=== PATIENT | female | born 1950 | race Caucasian/White ===

== ENCOUNTER 2020-10-29 08:24 | Outpatient (CLI) | payer OTHER, SELFPAY ==
[2020-10-30 10:39] LABS: Basophils Absolute Auto 0.1 K/mm3 (0.0-0.1); Basophils Percent Auto 0.9 % (0.2-1.2); Eosinophils Absolute Auto 0.3 K/mm3 (0-0.3); Eosinophils Percent Auto 3.8 % (0-4.4); Hematocrit 43.1 % (37.0-47.0); Hemoglobin 13.6 g/dL (12.0-15.0); Immature Granulocyte Absolute 0.02 K/mm3 (0.00-0.031); Immature Granulocyte Percent A 0.3 % (0-0.5); Lymphocytes Percent Auto 34.2 % (18.3-44.2); Mean Corpuscular HGB Conc 31.6 g/dl (32-36); Mean Corpuscular Hemoglobin 29.6 pg (26-34); Mean Corpuscular Volume 93.9 fl (80-100); Mean Platelet Volume 10.9 fl (7.4-10.4); Monocytes Absolute Auto 0.6 K/mm3 (0.1-0.6); Monocytes Percent Auto 7.5 % (2.6-8.5); Neutrophils Absolute Auto 4.1 K/mm3 (1.3-6.7); Neutrophils Percent Auto 53.3 % (45.5-73.1); Platelet Count Result 302 k/mm3 (150-375); Red Blood Count 4.59 M/mm3 (4.2-5.4); Red Cell Distribution Width 13.6 % (11.5-14.5); White Blood Count 7.6 K/mm3 (4.5-10.0)
[2020-10-30 10:45] LABS: Add Urine Microscopic? NO; Appearance Urine Clear (Clear); Bacteria Urine Trace /hpf; Bilirubin Urine Negative (Negative); Blood Urine Negative (Negative); Color Urine Yellow (Yellow); Glucose Urine UA Negative (Negative); Ketones Urine Negative (Negative); Leukocyte Esterase Ur Negative LEU/UL (Negative); Mucus Urine Rare /lpf; Nitrate Urine Negative (Negative); Protein Urine Negative (Negative); RBC Urine 0-2 /hpf (0-2); Specific Grav Ur 1.015 (1.001-1.035); Squamous Epithelial Cell Urine Moderate /hpf (Few); Urobilinogen Urine Negative mg/dL (<2.0)
[2020-10-30 10:46] LABS: Alanine Aminotransferase 22 U/L (4-35); Albumin Level 3.9 g/dL (3.5-5.1); Alkaline Phosphatase 53 U/L (38-126); Anion Gap 5 mmol/L (8-16); Aspartate Amino Transferase 23 U/L (14-36); Bilirubin,Total 0.4 mg/dL (0.2-1.3); Blood Urea Nitrogen 16 mg/dL (7-17); Carbon Dioxide 32 mmol/L (22-30); Chloride 107 mmol/L (98-107); Cholesterol 211 mg/dL (0-200); Estimated Glomerular Filt Rate > 60; Glucose 120 mg/dL (65-105); HDL Direct 54 mg/dL; Potassium 3.9 mmol/L (3.4-5.0); Sodium 144 mmol/L (137-145); Triglycerides 135 mg/dL (<150)
[2020-10-30 10:57] LABS: LDL Cholesterol Direct 141 mg/dL
[2020-10-30 11:05] LABS: Vitamin D 25 Hydroxy < 12.8 ng/mL
[2020-10-30 11:43] LABS: IFOB Positive Control Positive; Immunochemical Fecal Occult Bl Negative (N)
[2020-10-30 11:52] LABS: Folic Acid 12.9 ng/mL (2.76->20)
== END 2020-10-29 08:25 | disposition home or self-care (01) ==
PROVIDERS: PCP Family Medicine; Visit Provider Family Medicine
DX: D48.9 Neoplasm of uncertain behavior, unspecified (principal); E04.9 Nontoxic goiter, unspecified; E66.9 Obesity, unspecified; Z13.9 Encounter for screening, unspecified; Z78.0 Asymptomatic menopausal state; Z79.899 Other long term (current) drug therapy; Z82.62 Family history of osteoporosis
CPT/HCPCS: 36415; 80053; 80061; 81003; 82274; 82306; 82607; 82746; 84443; 85025

== ENCOUNTER 2021-11-18 11:04 | Outpatient (CLI) | payer OTHER, SELFPAY ==
[2021-11-18 19:09] LABS: Hematocrit 39.8 % (37.0-47.0); Hemoglobin 12.9 g/dL (12.0-15.0); Mean Corpuscular HGB Conc 32.4 g/dl (32-36); Mean Corpuscular Hemoglobin 29.7 pg (26-34); Mean Corpuscular Volume 91.7 fl (80-100); Mean Platelet Volume 10.6 fl (7.4-10.4); Platelet Count Result 281 k/mm3 (150-375); Red Blood Count 4.34 M/mm3 (4.2-5.4); Red Cell Distribution Width 13.4 % (11.5-14.5); White Blood Count 7.8 K/mm3 (4.5-10.0)
[2021-11-18 19:21] LABS: Alanine Aminotransferase 20 U/L (4-35); Alkaline Phosphatase 57 U/L (38-126); Anion Gap 5 mmol/L (8-16); Aspartate Amino Transferase 22 U/L (14-36); Bilirubin,Total 0.5 mg/dL (0.2-1.3); Blood Urea Nitrogen 12 mg/dL (7-17); Calcium 8.6 mg/dL (8.4-10.2); Carbon Dioxide 32 mmol/L (22-30); Chloride 106 mmol/L (98-107); Cholesterol 218 mg/dL (0-200); Estimated Glomerular Filt Rate 55; Glucose 126 mg/dL (65-110); HDL Direct 55 mg/dL; Sodium 143 mmol/L (137-145); Triglycerides 91 mg/dL (<150)
[2021-11-18 19:29] LABS: Hemoglobin A1C 6.2 % (<5.7)
[2021-11-18 19:35] LABS: LDL Cholesterol Direct 140 mg/dL
[2021-11-18 20:56] LABS: Vitamin D 25 Hydroxy 20.6 ng/mL
[2021-11-18 21:46] LABS: Folic Acid 7.5 ng/mL (2.76->20)
== END 2021-11-18 11:05 | disposition home or self-care (01) ==
PROVIDERS: PCP Family Medicine; Visit Provider Family Medicine
DX: E66.9 Obesity, unspecified (principal); Z78.0 Asymptomatic menopausal state; E04.9 Nontoxic goiter, unspecified; E55.9 Vitamin D deficiency, unspecified; E53.8 Deficiency of other specified B group vitamins; R79.89 Other specified abnormal findings of blood chemistry
CPT/HCPCS: 36415; 80053; 80061; 82306; 82607; 82746; 83036; 84443; 85027

== ENCOUNTER 2021-11-28 10:36 | Outpatient (CLI) | payer OTHER, SELFPAY ==
--- NOTE | ~2021-11-28 | US_ITS ---
EXAMINATION: US thyroid EXAM DATE: 11/28/2021 11:04 INDICATION: E04.9 - Nontoxic goiter, unspecified TECHNIQUE: Multiple grayscale and Doppler images of the thyroid were obtained (by a technologist who performed the scan) and subsequently reviewed. Individual nodules and recommendations may be reporte d in accordance with TI-RADS system as designated by the 2017 ACR White Paper TI-RADS committee. The re is no prior study for comparison. FINDINGS: Right thyroid lobe measures 4.8 x 1.9 x 1.3 cm, the left measuring 3.8 x 1.4 x 1.1 cm. Right thyroid lobe is mildly enlarged. Mildly diffusely heterogeneous thyroid echogenicity. No focal nodule identif ied. IMPRESSION: Mildly enlarged right thyroid lobe. Reviewed, dictated and finalized at location A. RIBUTION COORDINATOR
== END 2021-11-28 10:37 | disposition home or self-care (01) ==
LOC: ANHIMG 10:38
PROVIDERS: PCP Family Medicine; Visit Provider Family Medicine
DX: E04.9 Nontoxic goiter, unspecified (principal)
CPT/HCPCS: 76536

== ENCOUNTER → 2022-02-10 12:21 | Outpatient (CLI) | payer OTHER, SELFPAY ==
--- NOTE | ~2022-02-10 | DEXA_ITS ---
Bone Density Report Name: ZOE BROOKS Age: 71 Sex: Female Ethnicity: White Date of : 1950 Indication: postmenopausal; screening for osteoporosis; parental hip fracture; Referring Provider: WATSON GREER Study: Bone densitometry was performed. Exam Date: February 10, 2022 Accession number: [id number] Bone Density: Region BMD T-score Z-score Classification Total Forearm (Left) 0.539 -0.5 1.6 1/3 Forearm (Left) 0.678 -0.1 2.0 UD Forearm (Left) 0.380 -0.6 0.9 World Health Organization criteria for BMD impression classify patients as: Normal (T-score at or above -1.0), Osteopenia (T-score between -1.0 and -2.5), or Osteoporosis (T-score at or below -2.5). Clinical Information Provided by Patient: Parent has had a hip fracture Patient maximum height was 63.6 Menopause Age: 57 No regular weight bearing exercise Drinks caffeinated beverages Onset of menses at age 14 Number of children 3 Impression: The patient has normal bone mass. The patient has risk factors, including: parental hip fracture. Discussion: BONE DENSITY IS ABOVE THE MINIMUM DESIRABLE LEVEL AT ALL SKELETAL SITES TESTED. This patient?s bone mineral density is above the minimum desirable level (T-score -1.0 or better) at all sites measured. The patient should follow a healthful lifestyle (good nutrition with adequate calcium and vitamin D, and appropriate weight-bearing exercise). Follow-Up: Consider repeating this study in 5 years or sooner if there is some new clinical indication. Reported by: ISABELA on 02/10/2022 2:16:00 PM. Reviewed, dictated and finalized at location AMiller YIP
--- NOTE | ~2022-02-10 | DEXA_ITS ---
Bone Density Report Name: ZOE BROOKS Age: 71 Sex: Female Ethnicity: White Date of : 1950 Indication: postmenopausal; screening for osteoporosis; parental hip fracture; Referring Provider: WATSON GREER Study: Bone densitometry was performed. Exam Date: February 10, 2022 Accession number: [id number] Bone Density: Region BMD T-score Z-score Classification AP Spine (L1-L4) 1.109 0.6 2.6 Normal Femoral Neck (Left) 0.645 -1.8 -0.1 Osteopenia Total Hip (Left) 0.922 -0.2 1.3 Normal Femoral Neck (Right) 0.702 -1.3 0.4 Osteopenia Total Hip (Right) 0.920 -0.2 1.3 Normal Total Hip Mean 0.921 -0.2 1.3 Normal World Health Organization criteria for BMD impression classify patients as: Normal (T-score at or above -1.0), Osteopenia (T-score between -1.0 and -2.5), or Osteoporosis (T-score at or below -2.5). 10-year Fracture Risk(1): Major Osteoporotic Fracture 16% Hip Fracture 2.9% Reported Risk Factors: [place] (), Neck BMD=0.645, BMI=38.1, parental fracture (1) FRAX(R) Version 3.08. Fracture probability calculated for an untreated patient. Fracture probability may be lower if the patient has received treatment. Clinical Information Provided by Patient: Parent has had a hip fracture Patient maximum height was 63.6 Menopause Age: 57 No regular weight bearing exercise Drinks caffeinated beverages Onset of menses at age 14 Number of children 3 Impression: The patient has low bone mass, based on the Left Femoral Neck T-score. The patient has an estimated ten-year risk of hip fracture of 2.9% and an estimated ten-year risk of major fracture of 16%, based on the WHO FRAX algorithm. The patient has risk factors, including: parental hip fracture. Discussion: BONE DENSITY IS LOW AT ONE OR MORE SKELETAL SITES. This patient's lowest T-score is low at one or more skeletal sites. It meets the World Health Organization's (WHO) criteria for ?low bone mass? (T-score between -1.0 and -2.5). The patient's 10-year risk of fracture as calculated by FRAX is less than the threshold where pharmacological therapy is recommended by the National Osteoporosis Foundation (NOF). However, all treatment decisions require clinical judgment and consideration of individual patient factors, including patient preferences, comorbidities, previous drug use, risk factors not captured in the FRAX model (e.g., frailty, falls, vitamin D deficiency, increased bone turnover, interval significant decline in bone density) and possible under or overestimation of fracture risk by FRAX. The patient should follow a healthful lifestyle (good nutrition with adequate calcium and vitamin D, and appropriate weight-bearing exercise). Follow-Up: Consider repeating this study in 2 to 3 years to reassess this patient's status, or sooner if ther
--- NOTE | ~2022-02-10 | MM_ITS ---
EXAMINATION: MM screening michelle BI w trey HISTORY: Screening mammogram TECHNIQUE: Craniocaudal and mediolateral oblique 3-D tomosynthesis images were obtained and synthetic 2-D images were generated. CAD analysis was submitted and interpreted. COMPARISON: No prior mammogram is available for comparison at this institution. BREAST PARENCHYMAL COMPOSITION: The breasts are almost entirely fatty. FINDINGS: RIGHT BREAST: There is a long linear array of microcalcifications in the inner mid left breast, high ly suspicious for ductal carcinoma in situ or ductal carcinoma. Diagnostic mammogram with magnificat ion views is recommended. LEFT BREAST: There is no evidence of suspicious mass, calcification, or architectural distortion to s uggest malignancy in either breast. There has been no suspicious interval change. IMPRESSION: 1. Suspicious long linear array of microcalcifications in the inner mid left breast 2. Diagnostic right mammogram is recommended. BI-RADS Category 0: Incomplete: Needs additional imaging evaluation. Reviewed, dictated and finalized at location A. IMPRESSION: 1. Suspicious long linear array of microcalcifications in the inner mid left br east 2. Diagnostic right mammogram is recommended. BI-RADS Category 0: Incomplete: Needs additional imaging evaluation.
== END ==
PROVIDERS: PCP Family Medicine; Visit Provider Family Medicine
DX: Z12.31 Encounter for screening mammogram for malignant neoplasm of breast (principal); Z78.0 Asymptomatic menopausal state; Z82.62 Family history of osteoporosis; R92.8 Other abnormal and inconclusive findings on diagnostic imaging of breast; M85.852 Other specified disorders of bone density and structure, left thigh; M85.851 Other specified disorders of bone density and structure, right thigh
CPT/HCPCS: 77063; 77067; 77080; 77081

== ENCOUNTER → 2022-05-20 09:22 | Outpatient (CLI) | payer OTHER, SELFPAY ==
--- NOTE | ~2022-05-20 | MM_ITS ---
EXAMINATION: MM diagnostic michelle RT w trey HISTORY: Indeterminate right breast calcifications on screening mammogram TECHNIQUE: Images of the right breast were performed. CAD analysis was submitted and interpreted. COMPARISON: 02/10/2022 FINDINGS: There are fine pleomorphic calcifications in a linear distribution in the middle and forest worker ior third of the slightly outer breast at the 3:00 location spanning an anterior to posterior distanc e of approximately 9 cm. No associated mass is identified. IMPRESSION: 1. Suspicious right breast calcifications. 2. Stereotactic biopsy is recommended. BI-RADS category 4, suspicious findings. Reviewed, dictated and finalized at location A.
== END ==
PROVIDERS: PCP Family Medicine; Visit Provider Family Medicine
DX: R92.8 Other abnormal and inconclusive findings on diagnostic imaging of breast (principal)
CPT/HCPCS: 77061; 77065; G0279

== ENCOUNTER 2022-08-18 11:58 | Emergency (ER) | payer OTHER, SELFPAY ==
--- NOTE | ~2022-08-18 | XR_ITS ---
EXAMINATION: XR chest 2V 08/18/2022 12:59 INDICATION: Low oxygen saturations. Dyspnea. He aches. PROCEDURE: 2 view chest COMPARISON: No prior studies for comparison. FINDINGS: The lungs are clear. The cardiomediastinal silhouette is within normal limits. There are no pleural effusions. There is no pneumothorax suspected. IMPRESSION: 1: NO ACUTE CARDIOPULMONARY DISEASE. Reviewed, dictated and finalized at location A. LER TRUCK DRIVER
[2022-08-18 12:04] VITALS: BP 153/61; PULSE 72; RESP 20; TEMP 37.3; O2SAT 94
--- NOTE | 2022-08-18 12:41 | ED.URI ---
HPI - URI/Sore Throat General Chief Complaint: Upper Respiratory Infection Stated Complaint: cold flu symptoms Time Seen by Provider: 08/18/22 12:41 Source: patient, RN notes reviewed and old records reviewed Mode of arrival: ambulatory Limitations: no limitations History of Present Illness HPI Narrative: 71-year-old female presents to the [facility] with complaints of flu-like symptoms since last night. Took Tylenol and NyQuil last night. Nothing today. Reports a fever of 100.1. Reports cough, chest congestion and headache. Related Data Allergies Allergy/AdvReac Type Severity Reaction Status Date / Time No Known Allergies Allergy Unverified 12/11/21 11:08 Review of Systems Review of Systems: All systems reviewed & are unremarkable except as noted in HPI and below Constitutional: Constitutional: Reports as per HPI, Denies body ache(s), Denies chills, Reports fever(s) and Reports headache(s) Eyes: Eyes: Reports no additional eye complaints ENT: Reports system reviewed and no additional complaints, except as documented and Denies headache(s) Cardiovascular: Cardiovascular: Reports no additional cardiovascular complaints, Denies chest pain and Denies dyspnea Respiratory: Respiratory: Reports as per HPI, Reports chest congestion, Reports cough, Denies dyspnea and Denies wheezing Gastrointestinal: Gastrointestinal: Reports no additional gastrointestinal complaints and Denies abdominal pain Musculoskeletal: Musculoskeletal: Reports no additional musculoskeletal complaints Integumentary/Breasts: Skin/Breast: Reports system reviewed and no additional complaints, except as docu Neurologic: Reports system reviewed and no additional complaints, except as documented and Denies headache(s) Psychiatric: Psychiatric: Reports no additional psychiatric complaints Allergic/Immunologic: Allergic/Immunologic: Reports no additional allergic/immunologic complaints [facility] Past Medical History Medical History (Updated 08/19/22 @ 11:35 by Farnaz Mcmahon APRN) Obesity Prediabetes Surgical History Surgical History History of cholecystectomy Family History Family History Mother Hypertension Heart problem Sibling Cancer Heart problem Thyroid disorder Social History Social History Smoking status: Never smoker Alcohol intake: never Substance use: never Comments At the time of my signature, I reviewed and agree with the nursing past medical, surgical, social, and family history. There is no relevant family history pertinent to the patient complaint. Exam Const: General: cooperative, comfortable, no acute distress, well developed, alert, ill appearing (Mildly acute on chronic) acutely and chronically and well nourished Nutritional Appearance: well nourished and obese Orientation/consciousness: patient oriented x3 Limitations: no limitations HENMT: Head: normal to inspection Ears: external ears normal Face/Nose/Sinus: Normal external nose present, Normal nares present, Normal nasal mucous membranes and turbinates present and normal facial exam Face and sinus: normal facial exam Mouth: Yes Normal oral and palatal mucosa present, Yes lip normal and Yes moist mucous membranes abnormal Eyes: General: appearance normal, both eyes and all related structures Alignment and Position: alignment normal Pupils: Equal, round and reactive pupils present Neck: Neck: normal visual inspection, full ROM, no lymphadenopathy and no meningeal signs Chest: Chest palpation & inspection: normal inspection of the chest Resp: Effort & Inspection: normal respiratory effort and no use of accessory muscles Auscultation: no crackles, no rales, no rhonchi, no wheezes and diminished lung sounds bilateral throughout Cardio: Rate: regular rate Rhythm: regular rhythm Back/Spin
== END 2022-08-18 13:30 | disposition home or self-care (01) ==
PROVIDERS: Emergency Provider Nurse Practitioner; PCP Family Medicine
DX: B34.9 Viral infection, unspecified (principal)
CPT/HCPCS: 71046; 99213; G0463

== ENCOUNTER 2022-09-17 11:00 | Outpatient (CLI) | payer OTHER, SELFPAY ==
[2022-09-17 18:38] LABS: Hemoglobin A1C 6.2 % (<5.7)
[2022-09-17 18:42] LABS: Alanine Aminotransferase 17 U/L (6-35); Albumin Level 3.8 g/dL (3.5-5.1); Alkaline Phosphatase 65 U/L (38-126); Anion Gap 6 mmol/L (8-16); Aspartate Amino Transferase 54 U/L (14-36); Bilirubin,Total 0.5 mg/dL (0.2-1.3); Blood Urea Nitrogen 19 mg/dL (7-17); Calcium 8.7 mg/dL (8.4-10.2); Carbon Dioxide 32 mmol/L (22-30); Chloride 103 mmol/L (98-107); Estimated Glomerular Filt Rate 49; Glucose 103 mg/dL (65-110); Potassium 3.7 mmol/L (3.4-5.0); Sodium 141 mmol/L (137-145)
[2022-09-17 19:20] LABS: Vitamin D 25 Hydroxy 16.8 ng/mL
[2022-09-17 19:38] LABS: Hematocrit 37.2 % (37.0-47.0); Hemoglobin 11.4 g/dL (12.0-15.0); Mean Corpuscular HGB Conc 30.6 g/dl (32-36); Mean Corpuscular Hemoglobin 28.9 pg (26-34); Mean Corpuscular Volume 94.4 fl (80-100); Mean Platelet Volume 10.9 fl (7.4-10.4); Platelet Count Result 332 k/mm3 (150-375); Red Blood Count 3.94 M/mm3 (4.2-5.4); Red Cell Distribution Width 13.8 % (11.5-14.5); White Blood Count 10.1 K/mm3 (4.5-10.0)
== END 2022-09-17 11:01 | disposition home or self-care (01) ==
PROVIDERS: PCP Family Medicine; Visit Provider Family Medicine
DX: E66.9 Obesity, unspecified (principal); I16.0 Hypertensive urgency; R73.03 Prediabetes; Z79.899 Other long term (current) drug therapy
CPT/HCPCS: 36415; 80053; 82306; 83036; 85027

== ENCOUNTER 2023-06-01 12:15 | Outpatient (CLI) | payer OTHER, SELFPAY ==
[2023-06-01 19:51] LABS: Vitamin D 25 Hydroxy 82.6 ng/mL
[2023-06-01 19:59] LABS: Alanine Aminotransferase 25 U/L (6-35); Albumin Level 4.4 g/dL (3.5-5.1); Alkaline Phosphatase 63 U/L (38-126); Anion Gap 7 mmol/L (8-16); Aspartate Amino Transferase 56 U/L (14-36); Bilirubin,Total 0.5 mg/dL (0.2-1.3); Blood Urea Nitrogen 18 mg/dL (7-17); Calcium 9.5 mg/dL (8.4-10.2); Carbon Dioxide 32 mmol/L (22-30); Chloride 102 mmol/L (98-107); Cholesterol 251 mg/dL (0-200); Estimated Glomerular Filt Rate 44; Glucose 106 mg/dL (65-110); HDL Direct 45 mg/dL; Potassium 4.1 mmol/L (3.4-5.0); Sodium 141 mmol/L (137-145); Triglycerides 179 mg/dL (<150)
[2023-06-01 20:10] LABS: LDL Cholesterol Direct 144 mg/dL
[2023-06-01 20:36] LABS: Hematocrit 42.2 % (37.0-47.0); Hemoglobin 12.9 g/dL (12.0-15.0); Mean Corpuscular HGB Conc 30.6 g/dl (32-36); Mean Corpuscular Hemoglobin 28.2 pg (26-34); Mean Corpuscular Volume 92.3 fl (80-100); Mean Platelet Volume 10.7 fl (7.4-10.4); Platelet Count Result 296 k/mm3 (150-375); Red Blood Count 4.57 M/mm3 (4.2-5.4); Red Cell Distribution Width 13.1 % (11.5-14.5); White Blood Count 7.9 K/mm3 (4.5-10.0)
[2023-06-01 21:13] LABS: Hemoglobin A1C 6.2 % (<5.7)
== END 2023-06-01 12:16 | disposition home or self-care (01) ==
PROVIDERS: PCP Family Medicine; Visit Provider Family Medicine
DX: E53.8 Deficiency of other specified B group vitamins (principal); R79.89 Other specified abnormal findings of blood chemistry; Z00.00 Encounter for general adult medical examination without abnormal findings; E04.9 Nontoxic goiter, unspecified; E66.9 Obesity, unspecified; I16.0 Hypertensive urgency; R73.03 Prediabetes; Z79.899 Other long term (current) drug therapy
CPT/HCPCS: 36415; 80053; 80061; 82306; 82607; 83036; 85027

== ENCOUNTER 2023-07-01 07:50 | Outpatient (CLI) | payer OTHER, SELFPAY ==
--- NOTE | ~2023-07-01 | US_ITS ---
US abdomen limited INDICATION: Elevated liver enzymes PROCEDURE: Realtime right upper abdominal ultrasound. COMPARISON: No prior studies for comparison. FINDINGS: The pancreas is normal without focal mass or pancreatic ductal dilation. Liver echotexture is increased, consistent with fatty infiltration. There is normal directional flow in the portal ve in. Gallbladder is surgically absent. Common bile duct measures 4.2 mm. No sonographic Daily's sign. IMPRESSION: 1: Hepatic steatosis. Reviewed, dictated and finalized at location B. IMPRESSION: 1: Hepatic steatosis.
== END 2023-07-01 07:51 | disposition home or self-care (01) ==
LOC: ANHIMG 07:53
PROVIDERS: PCP Family Medicine; Visit Provider Family Medicine
DX: R74.01 Elevation of levels of liver transaminase levels (principal); K76.0 Fatty (change of) liver, not elsewhere classified
CPT/HCPCS: 76705

== ENCOUNTER 2023-09-11 14:17 | Emergency (ER) | payer OTHER, SELFPAY ==
--- NOTE | ~2023-09-11 | XR_ITS ---
EXAMINATION: XR chest 2V DATE: 09/11/2023 14:46 INDICATION: Hypoxia and 2 weeks of cough TECHNIQUE: frontal and lateral views of the chest were obtained. COMPARISON: Chest radiograph dated 08/18/2022 FINDINGS: New patchy airspace opacities in the bilateral lower lobes suspicious for pneumonia. No pleural effus ion or pneumothorax. The cardiomediastinal silhouette is normal. Right internal jugular central venou s port catheter with distal tip at the caudal superior vena cava. Bilateral breast expanders. Cholecy stectomy clips in right upper quadrant. Thoracic kyphosis with mild spondylosis and bridging osteophy yaa at multiple levels consistent with diffuse idiopathic skeletal hyperostosis (DISH). IMPRESSION: 1. Patchy airspace opacities in bilateral lower lobes concerning for pneumonia. Reviewed, dictated and finalized at location A. E MAKER
[2023-09-11 14:22] VITALS: BP 123/53; PULSE 91; RESP 20; TEMP 36.7; O2SAT 91
--- NOTE | 2023-09-11 14:32 | ED.GENADULT ---
HPI - General Adult General Chief complaint: Upper Respiratory Infection Stated complaint: Cough Source: patient, RN notes reviewed and old records reviewed Mode of arrival: ambulatory Limitations: no limitations History of Present Illness HPI narrative: 72-year-old female presents to [facility] with complaints of productive cough, congestion, general malaise, poor appetite for 2 weeks. Patient taking [id number] medications with no relief. Patient denies dizziness, chest pain, shortness of breath, vomiting. MD complaint: Cough Onset (ago): week(s) (2) Related Data Home Medications Medication Instructions Recorded Confirmed letrozole 2.5 mg tablet 2.5 mg PO DAILY 07/20/23 07/21/23 Allergies Allergy/AdvReac Type Severity Reaction Status Date / Time No Known Allergies Allergy Verified 07/20/23 11:33 Review of Systems Constitutional: Constitutional: Reports no additional constitutional complaints, Reports body ache(s), Denies chills, Reports fatigue, Denies fever(s), Denies headache(s) and Reports poor appetite Eyes: Eyes: Reports no additional eye complaints and Denies blurry vision ENT: Reports system reviewed and no additional complaints, except as documented, Denies vertigo, Denies dizziness, Denies ear discharge, Denies otalgia, Denies facial pain, Denies headache(s), Reports nasal congestion, Reports nasal discharge, Denies sinus pain, Denies sinus pressure and Denies sore throat Cardiovascular: Cardiovascular: Reports no additional cardiovascular complaints, Denies chest pain, Denies chest pain at rest, Denies rapid heart rate and Denies dyspnea Respiratory: Respiratory: Reports no additional respiratory complaints, Reports chest congestion, Reports cough, Denies pain on inspiration, Denies pain with cough and Denies dyspnea Gastrointestinal: Gastrointestinal: Denies abdominal pain, Denies diarrhea, Denies nausea and Denies vomiting Integumentary/Breasts: Skin/Breast: Denies rash Neurologic: Reports system reviewed and no additional complaints, except as documented, Denies vertigo, Denies dizziness and Denies headache(s) Endocrine: Endocrine: Denies fatigue PMFSH Past Medical History Medical History Obesity Prediabetes Surgical History Surgical History History of cholecystectomy Family History Family History Mother Hypertension Heart problem Sibling Cancer Heart problem Thyroid disorder Social History Social History Smoking status: Never smoker Alcohol intake: never Substance use: never Lack of Transportation: YES Lack of Food: Never True Current Housing: I Have Housing Concerned About Future Housing: No Difficulty Paying Gas/Electric Bills: No Difficulty Paying for Meds: No Currently Unemployed: No Education: High School Diploma/GED Difficulty w/ Childcare or Family Care: No Gender identity (if verbalized by the patient): Female Comments At the time of my signature, I reviewed and agree with the nursing past medical, surgical, social, and family history. There is no relevant family history pertinent to the patient complaint. Exam Const: General: cooperative, no acute distress, ill appearing acutely and chronically and well nourished Nutritional Appearance: well nourished Orientation/consciousness: patient oriented x3 Limitations: no limitations HENMT: Head: normal to inspection and normocephalic Ears: external ears normal, TM's normal bilaterally, mastoids normal and Abnormal EAC present Face/Nose/Sinus: normal facial exam Face and sinus: normal facial exam Mouth: Yes Normal oral and palatal mucosa present, Yes oropharynx normal and Yes moist mucous membranes Throat: tonsils normal, uvula midline, posterior oropharynx abnor
== END 2023-09-11 15:07 | disposition home or self-care (01) ==
PROVIDERS: Emergency Provider Registered Nurse; PCP Family Medicine
DX: J18.1 Lobar pneumonia, unspecified organism (principal); E66.9 Obesity, unspecified; Z68.36 Body mass index [BMI] 36.0-36.9, adult; R73.03 Prediabetes
CPT/HCPCS: 71046; 99213; G0463

== ENCOUNTER 2023-09-24 14:15 | Outpatient (CLI) | payer OTHER, SELFPAY ==
--- NOTE | ~2023-09-24 | US_ITS ---
EXAMINATION: US renal BI DATE: 09/24/2023 15:01 INDICATION: Stage IIIa chronic kidney disease TECHNIQUE: Multiple ultrasound grayscale images of the kidneys were obtained. COMPARISON: None. FINDINGS: The right kidney measures 9.3 x 4.1 x 4.7 cm. The left kidney measures 9.6 x 4.7 x 4.4 cm. The kidney s demonstrate normal echogenicity. There is no hydronephrosis in either kidney. No stones identified . The bladder is normal with bilateral ureteral jets visualized on color Doppler. IMPRESSION: 1. Normal kidneys without hydronephrosis. Reviewed, dictated and finalized at location A. DITER CLERK
== END 2023-09-24 14:16 | disposition home or self-care (01) ==
PROVIDERS: PCP Family Medicine; Visit Provider Internal Medicine Nephrology
DX: N18.31 Chronic kidney disease, stage 3a (principal)
CPT/HCPCS: 76775

== ENCOUNTER 2023-11-10 09:56 | Outpatient (CLI) | payer OTHER, SELFPAY ==
[2023-11-10 18:45] LABS: Hematocrit 40.7 % (37.0-47.0); Hemoglobin 12.4 g/dL (12.0-15.0); Mean Corpuscular HGB Conc 30.5 g/dl (32-36); Mean Corpuscular Hemoglobin 28.6 pg (26-34); Mean Corpuscular Volume 93.8 fl (80-100); Mean Platelet Volume 10.7 fl (7.4-10.4); Platelet Count Result 240 k/mm3 (150-375); Red Blood Count 4.34 M/mm3 (4.2-5.4); Red Cell Distribution Width 13.9 % (11.5-14.5); White Blood Count 6.7 K/mm3 (4.5-10.0)
[2023-11-10 19:05] LABS: Albumin Level 3.9 g/dL (3.5-5.1); Anion Gap 5 mmol/L (8-16); Blood Urea Nitrogen 15 mg/dL (7-17); Calcium 8.8 mg/dL (8.4-10.2); Carbon Dioxide 32 mmol/L (22-30); Chloride 101 mmol/L (98-107); Creatine Kinase 38 U/L (30-135); Estimated Glomerular Filt Rate 44; Glucose 98 mg/dL (65-110); Phosphorus 3.5 mg/dL (2.5-4.5); Potassium 3.2 mmol/L (3.4-5.0); Sodium 138 mmol/L (137-145)
[2023-11-10 19:13] LABS: Complement C3 147 mg/dL (88-165)
[2023-11-10 19:21] LABS: Parathyroid Intact 43.1 pg/mL (7.5-53.5)
[2023-11-10 19:26] LABS: Erythrocyte Sedimentation Rate 16 mm/hr (0-20)
[2023-11-10 19:45] LABS: Appearance Urine Clear (Clear); Bilirubin Urine Negative (Negative); Blood Urine Negative (Negative); Color Urine Yellow (Yellow); Glucose Urine UA Negative (Negative); Ketones Urine Negative (Negative); Leukocyte Esterase Ur Negative LEU/UL (NEGATIVE); Nitrate Urine Negative (Negative); Protein Urine Negative (Negative); Specific Grav Ur 1.005 (1.001-1.035); Urobilinogen Urine 0.2 mg/dL (<2.0); pH Urine 5.5 (5.0-9.0)
[2023-11-10 19:54] LABS: Add Urine Microscopic? NO
[2023-11-10 19:57] LABS: Creatinine Urine 38.5 mg/dL; Total Protein Urine Random 15 mg/dL; Ur Ttl Prot Creatinine Ratio 0.39 mg/mg (0-0.20)
[2023-11-11 23:53] LABS: Lambda Light Chain 24.5 mg/L (5.7-26.3)
[2023-11-15] LABS: Complement Total CH50 >60 U/mL (31-60)
[2023-11-15 00:25] LABS: Anti Nuclear Antibody Titer 1:40 (Negative)
== END 2023-11-10 09:57 | disposition home or self-care (01) ==
PROVIDERS: PCP Family Medicine; Visit Provider Internal Medicine Nephrology
DX: I12.9 Hypertensive chronic kidney disease with stage 1 through stage 4 chronic kidney disease, or unspecified chronic kidney disease (principal); N18.31 Chronic kidney disease, stage 3a
CPT/HCPCS: 36415; 80069; 81003; 82550; 82570; 83883; 83970; 84156; 85027; 85652; 86038; 86039; 86160; 86162; 86334

== ENCOUNTER 2023-11-12 14:13 | Outpatient (CLI) | payer OTHER, SELFPAY ==
[2023-11-12 19:15] LABS: Total Volume 24 Hour Urine 1050 ml
[2023-11-12 19:36] LABS: Urea Nitrogen 24 Hour Urine 6.4 G/DAY (12-20)
[2023-11-12 19:37] LABS: Creatinine Urine 97.8 mg/dL
[2023-11-18 19:30] LABS: Albumin 18 %; Creat 24 Hr 1.18 g/24 h (0.50-2.15); Pro/Creat Ratio 102 mg/g creat (<150); Pro/Creat Ratio mg/mg 0.102 (<0.150); Protein,total, 24 Hr Ur 120 mg/24 h (<150)
== END 2023-11-12 14:14 | disposition home or self-care (01) ==
LOC: ANHBWCLAB 14:14
PROVIDERS: PCP Family Medicine; Visit Provider Internal Medicine Nephrology
DX: N18.31 Chronic kidney disease, stage 3a (principal)
CPT/HCPCS: 81050; 82570; 84540; 86335

== ENCOUNTER 2023-11-30 11:16 | Outpatient (CLI) | payer OTHER, SELFPAY ==
[2023-11-30 19:01] LABS: Anion Gap 7 mmol/L (8-16); Blood Urea Nitrogen 27 mg/dL (7-17); Calcium 9.8 mg/dL (8.4-10.2); Carbon Dioxide 30 mmol/L (22-30); Chloride 105 mmol/L (98-107); Estimated Glomerular Filt Rate 40; Glucose 137 mg/dL (65-110); Potassium 4.3 mmol/L (3.4-5.0); Sodium 142 mmol/L (137-145)
[2023-11-30 19:11] LABS: Hemoglobin A1C 6.2 % (<5.7)
[2023-11-30 19:24] LABS: Vitamin D 25 Hydroxy 82.2 ng/mL
== END 2023-11-30 11:17 | disposition home or self-care (01) ==
PROVIDERS: PCP Family Medicine; Visit Provider Family Medicine
DX: E87.6 Hypokalemia (principal); I10 Essential (primary) hypertension; N18.9 Chronic kidney disease, unspecified; R73.03 Prediabetes; R79.89 Other specified abnormal findings of blood chemistry; Z86.69 Personal history of other diseases of the nervous system and sense organs; Z79.899 Other long term (current) drug therapy
CPT/HCPCS: 36415; 80048; 82306; 83036

== ENCOUNTER 2024-05-02 08:46 | Outpatient (CLI) | payer OTHER, SELFPAY ==
[2024-05-02 20:16] LABS: Hematocrit 42.1 % (37.0-47.0); Mean Corpuscular HGB Conc 30.9 g/dl (32-36); Mean Corpuscular Hemoglobin 29.1 pg (26-34); Mean Corpuscular Volume 94.2 fl (80-100); Platelet Count Result 306 k/mm3 (150-375); Red Blood Count 4.47 M/mm3 (4.2-5.4); Red Cell Distribution Width 13.2 % (11.5-14.5); White Blood Count 6.6 K/mm3 (4.5-10.0)
[2024-05-02 20:19] LABS: Albumin Level 4.1 g/dL (3.5-5.1); Anion Gap 8 mmol/L (4-12); Blood Urea Nitrogen 18 mg/dL (7-17); Calcium 9.3 mg/dL (8.4-10.2); Carbon Dioxide 30 mmol/L (22-30); Chloride 104 mmol/L (98-107); Estimated Glomerular Filt Rate 44; Glucose 94 mg/dL (65-110); Phosphorus 3.5 mg/dL (2.5-4.5); Potassium 3.6 mmol/L (3.4-5.0); Sodium 142 mmol/L (137-145)
[2024-05-02 20:52] LABS: Creatinine Urine 16.7 mg/dL; Total Protein Urine Random 13 mg/dL; Ur Ttl Prot Creatinine Ratio 0.78 mg/mg (0-0.20)
[2024-05-02 21:01] LABS: Rheumatoid Factor < 12.0 IU/ML (<12)
[2024-05-02 21:06] LABS: Erythrocyte Sedimentation Rate 14 mm/hr (0-20)
[2024-05-03 13:28] LABS: SM Antibody <1.0 NEG AI (<1.0 NEG); SM/RNP Antibody <1.0 NEG AI (<1.0 NEG); SS-A <1.0 NEG AI (<1.0 NEG); SS-B <1.0 NEG AI (<1.0 NEG)
[2024-05-04 14:14] LABS: Anti Glomerular Basement Memb <1.0 AI
[2024-05-05 10:18] LABS: ANCA Screen NEGATIVE (NEGATIVE)
[2024-05-09 22:39] LABS: Cryoglobulin, QL Negative (Negative)
== END 2024-05-02 08:47 | disposition home or self-care (01) ==
PROVIDERS: PCP Family Medicine; Visit Provider Internal Medicine Nephrology
DX: N18.31 Chronic kidney disease, stage 3a (principal); R76.0 Raised antibody titer; E53.8 Deficiency of other specified B group vitamins
CPT/HCPCS: 36415; 80069; 82570; 82595; 83520; 83970; 84156; 85027; 85652; 86036; 86038; 86039; 86225; 86235; 86430

== ENCOUNTER 2024-06-02 10:28 | Outpatient (CLI) | payer OTHER, SELFPAY ==
[2024-06-02 19:05] LABS: Alanine Aminotransferase 19 U/L (6-35); Albumin Level 4.2 g/dL (3.5-5.1); Alkaline Phosphatase 67 U/L (38-126); Aspartate Amino Transferase 52 U/L (14-36); Bilirubin,Total 0.7 mg/dL (0.2-1.3); Cholesterol 230 mg/dL (0-200); HDL Direct 53 mg/dL; Triglycerides 150 mg/dL (<150)
[2024-06-02 19:16] LABS: LDL Cholesterol Direct 127 mg/dL
[2024-06-02 19:51] LABS: Hemoglobin A1C 6.1 % (<5.7)
== END 2024-06-02 10:29 | disposition home or self-care (01) ==
PROVIDERS: PCP Nurse Practitioner Adult Health; Visit Provider Nurse Practitioner Adult Health
DX: R73.03 Prediabetes (principal); I16.0 Hypertensive urgency
CPT/HCPCS: 36415; 80061; 80076; 83036

== ENCOUNTER 2024-07-11 09:24 | Outpatient (CLI) | payer OTHER, SELFPAY ==
[2024-07-11 19:24] LABS: Anion Gap 6 mmol/L (4-12); Blood Urea Nitrogen 16 mg/dL (7-17); Calcium 9.1 mg/dL (8.4-10.2); Carbon Dioxide 31 mmol/L (22-30); Chloride 104 mmol/L (98-107); Estimated Glomerular Filt Rate 40; Glucose 93 mg/dL (65-110); Potassium 3.7 mmol/L (3.4-5.0); Sodium 141 mmol/L (137-145)
== END 2024-07-11 09:25 | disposition home or self-care (01) ==
PROVIDERS: PCP Nurse Practitioner Adult Health; Visit Provider Internal Medicine Nephrology
DX: N18.31 Chronic kidney disease, stage 3a (principal)
CPT/HCPCS: 36415; 80048

== ENCOUNTER 2024-12-01 08:14 | Outpatient (CLI) | payer OTHER, SELFPAY ==
--- OUTSIDE RECORDS SUMMARY | 2024-12-01 08:27 | XMS_ITS | Clinical Summary ---
Author Organization [facility] Address [address] [place] [address] Care Team Providers Care Licensed Reactor Operator Name Role Phone Jignesh Floyd MD Primary Care Provider [phone] Source Comments [facility],non-owned Affiliates and Associated Physician Practices is amultiple site organization consisting of ambulatory clinics and hospital sitesin [place], [place], [place] and [place]. This disclosure is being madepursuant to the Care Everywhere program and may not contain all information available regarding this patient. Last updated 18.[facility] Allergies No known active allergies Medications * Be aware that medications may not be up to date on this document. Alwaysverify current medications with the patient. Medication Sig Dispensed Refills Start Date End Date Status amLODIPine (Norvasc) 10 MG tablet Take 1 (one) tablet by mouth once daily 06/01/2022 Active lisinopril (Prinivil; Zestril) 30 MG tablet Take 1 (one) tablet by mouth once daily 06/20/2022 Active Cholecalciferol (vitamin D3) 1.25 MG (11356 UT) capsule Take 1 (one) capsule by mouth every 7 days 09/23/2022 Active prochlorperazine (Compazine) 10 MG tabletIndications:Ma lignant neoplasm of upper-inner quadrant of right breast in female, estrogen receptor positive (HCC) Take 1 (one) tablet by mouth every 6 hours as needed for Nausea/Vomiting 30 tablet 6 10/14/2022 Active ondansetron (Zofran) 8 MG tabletIndications:Ma lignant neoplasm of upper-inner quadrant of right breast in female, estrogen receptor positive (HCC) Take 1 (one) tablet by mouth every 8 hours as needed for Nausea/Vomiting 20 tablet 6 10/14/2022 Active letrozole (Femara) 2.5 MG tabletIndications:Ma lignant neoplasm of upper-inner quadrant of right breast in female, estrogen receptor positive (HCC) Take 1 (one) tablet by mouth once daily 90 tablet 3 02/11/2024 02/10/2025 Active Jardiance 10 MG tablet Take 1 (one) tablet by mouth once daily 06/14/2024 Active Active Problems Problem Noted Date Diagnosed Date Malignant neoplasm of upper- inner quadrant of right breast in female, estrogen receptor positive 07/18/2022 Cancer Staging:Clinical stage from 07/10/2022:Stage IB(cT2, cN0, cM0, G3, ER+, ND+, HER2+) - Signed by Alexa Azar MD on 07/18/2022 Pathologic stage from 09/05/2022:Stage IA(pT1b(m), pN0(sn), cM0, G3, ER+, ND+, HER2+) - Signed by Alexa Azar MD on 10/01/2022 Family History Medical History Relation Name Comments Cancer - Other Brother Cancer - Breast Neg Hx Relation Name Status Comments Brother Spinal cancer - diagnosed in his 20s ( around 40) Social History Tobacco Use Types Packs/Day Years Used Date Smoking Tobacco: Never Smokeless Tobacco: Never Tobacco Cessation:Counseling Given: Not Answered Alcohol Use Standard Drinks/Week Comments Never 0 (1 standard drink = 0.6 oz pur e alcohol) AUDIT-C Answer Date Recorded Q1: How often do you have a drink containing alcohol? Never 01/18/2024 Q2: How many drinks containi ng alcohol do you have on a typical day when you are drinking? Patient does not drink Q3: How often do you have si x or more drinks on one occasion? Never 01/18/2024 Sex and Gender Information Value Date Recorded Sex Assigned at Female 08/08/2022 1:01 AM CREATIVE RECRUITER Gender Identity Female 08/08/2022 1:01 AM CREATIVE RECRUITER Sexual Orientation Straight 08/08/2022 1: 01 AM CREATIVE RECRUITER Last Filed Vital Signs Vital Sign Reading Time Taken Comments Blood Pressure 110/69 07/06/2024 9:52 AM CDT Pulse 61 07/06/2024 9:52 AM CDT Temperature 36.6 C (97.8 F) 07/06/2024 9:52 AM CDT Respiratory Rate 20 07/06/2024 9:52 AM CDT Oxygen Saturation 99% 07/06/2024 9:52 AM CDT Inhaled Oxygen Concentration 21% 09/05/2022 6 :55 PM CREATIVE RECRUITER Weight 93.8 kg (206 lb 12.8 oz) 07/06/2024 9:52 AM CDT Height 162.6 cm (5' 4 ) 06/20/2024 10:0 9 AM CDT Body Mass Index 35.5 06/20/2024 10:09 AM CDT Plan of Treatment Upcoming Encounters Date Type Department Care Team (Late st Contact Info) Description 01/04/2025 9:40 AM CDT Office Visit [facility] - Hematology/Oncology [address] [place] [id number] Sammi Tee MD [address] [place] [address] 06/19/2025 10:30 AM CDT Office Visit [facility] - General Surgery [address] [place] [phone] Alexa Azar MD [address] [place] [phone] Health Maintenance Due Date Last Done Comments BONE DENSITY TESTING 1950 COLOGUARD (AGES 45-75) - COLON CA SCREENING 1952 COLON MONITORING 1952 COLONOSCOPY - COLON CA SCREENING 1952 CT COLONOGRAPHY - COLON CA SCREENING 1950 Colorectal Cancer Screening 1952 FIT - COLON CA SCREENING 1952 FLEX SIG - COLON CA SCREENING 1952 LIPID TESTING 1950 MEDICARE AWV 12 MONTHS 1952 HEPATITIS C SCREENING 10/16/1970 DTAP/TDAP/TD VACCINES (1 - Tdap) 1971 PNEUMOCOCCAL VACCINE 50+ (1 of 1 - PCV) 2002 ZOSTER VACCINE (1 of 2) 2002 Respiratory Syncytial Virus (RSV) Vaccine Pt: or over 60 yrs (1 - Risk 60-74 years 1-dose series) 2012 COVID-19 VACCINE (3 - season) 2024 10/28/2021, 03/09/2021 INFLUENZA VACCINE (#1) 2024 MAMMOGRAM 07/07/2024 07/07/2022 DEPRESSION SCREENING 09/21/2024 SCREENING FOR DIABETES 07/06/2027 , 01/06/2024, 10/28/2023, Additional history exists HEPATITIS B VACCINE Aged Out No longe r eligible based on patient's age to complete this topic HIB VACCINE Aged Out No longer eligi ble based on patient's age to complete this topic HPV VACCINE Aged Out No longer eligi ble based on patient's age to complete this topic MENINGOCOCCAL (Group B) VACCINE SHARED DECISION-MAKING Aged Out No longer eligible based on patient's age to complete this topic MENINGOCOCCAL GROUPS A/C/Y/W VACCINE Aged Out No longer eligible based on patient's age to complete this topic Medical Devices Implanted Type Area Fur Clipper Device Identifier Shelf Expiration Date Model / Serial / Lot Mrkr Apl 3 Mrfbr Pd Radopq Interwoven Implanted:Qty: 1 on 07/10/2022 by Quyen Kessler MD at [facility] Right: Breast Bard Peripheral Vascular 01/20/2024 [id number] / / [id number] Mrkr Apl 3 Mrfbr Pd Radopq Interwoven Implanted:Qty: 1 on 07/10/2022 by Quyen Kessler MD at [facility] Right: Breast Bard Peripheral Vascular 02/20/2024 [id number] / / [id number] Mrkr Apl 3 Mrfbr Pd Radopq Interwoven Implanted:Qty: 1 on 07/21/2022 by Quyen Kessler MD at [facility] Left: Breast Bard Peripheral Vascular 02/20/2024 [id number] / / [id number] Natrelle 133s Tissue Bullard Operator 500cc Implanted:Qty: 1 on 09/05/2022 by Larissa Wooten MD at [facility] Right: Breast 09/14/2026 133S-MX-13- T / [id number] / Natrelle 133s Tissue Bullard Operator 500cc Implanted:Qty: 1 on 09/05/2022 by Alexa Azar MD at [facility] Left: Breast 11/04/2026 133S-MS-13- T / [id number] / Alloderm Select Tissue Matrix Large Contour Implanted:Qty: 1 on 09/05/2022 by Larissa Wooten MD at [facility] Right: Breast 07/21/2023 [id number] / / [id number] Alloderm Select Tissue Matrix Contour Large Implanted:Qty: 1 on 09/05/2022 by Larissa Wooten MD at [facility] Left: Breast 09/20/2023 [id number] / / [id number] Port Implinfn Powerport Clrvu Argd Smita Implanted:Qty: 1 on 10/21/2022 at [facility] Peripheral Vascular 12/20/2023 [id number] / / [id number] Procedures Procedure Name Priority Date/Time Associated Diagnosis Comments COMPREHENSIVE METABOLIC PANEL STAT 07/06/2024 9:24 AM CDT Malignant neoplasm of upper-inner quadrant of right breast in female, estrogen receptor positive (HCC) MM OUTSIDE MAMMOGRAM Routine 07/07/2022 3:57 PM CDT Abnormal mammogram from Last 3 Months or Most Recently Relevant to Health Maintenance Results * (ABNORMAL) COMPREHENSIVE METABOLIC PANEL (07/06/2024 9:24 AM CDT) BUN 25 7 - 26 mg/dL 07/06/2024 10:21 AM CDT [facility] Creatinine 1.36(H) 0.56 - 0.96 mg/dL 07/06/2024 10:21 AM [facility] Sodium 144 136 - 145 mmol/L 07/06/2024 10:21 AM [facility] Potassium 4.4 3.5 - 4.5 mmol/L 07/06/2024 10:21 AM [facility] Chloride 110(H) 98 - 107 mmol/L 07/06/2024 10:21 AM [facility] CO2 25 22 - 29 mmol/L 07/06/2024 10:21 AM [facility] Glucose 105 70 - 115 mg/dL 07/06/2024 10:21 AM [facility] Calcium 10.2 8.4 - 10.2 mg/dL 07/06/2024 10:21 AM [facility] Protein Total 7.3 6.0 - 8.3 g/dL 07/06/2024 10:21 AM [facility] Albumin 4.1 3.4 - 5.0 g/dL 07/06/2024 10:21 AM [facility] Bilirubin Total 0.4 0.2 - 1.2 mg/dL 07/06/2024 10:21 AM [facility] Alkaline Phosphatase 57 40 - 150 U/L 07/06/2024 10:21 AM [facility] ALT 15 5 - 55 U/L 07/06/2024 10:21 AM [facility] AST 16 5 - 34 U/L 07/06/2024 10:21 AM [facility] Anion Gap 9 6 - 16 07/06/2024 10:21 AM [facility] BUN/Creatinine Ratio 18 7 - 23 07/06/2024 10:21 AM [facility] Osmolality Calculated 303(H) 275 - 295 mOsm/kg 07/06/2024 10:21 AM [facility] Albumin/Globulin Ratio 1.3 1.1 - 2.3 07/06/2024 10:21 AM [facility] eGFR by CKD-EPI 42(L) >=90 mL/min/1.7 3 m2 07/06/2024 10:21 AM [facility] Blood BLOOD SPECIMEN / Unknown Lab Venipuncture / Unknown 07/06/2024 9:24 AM CDT 07/06/2024 9:26 AM CDT Corinne Jean MEDICAL TECH-MOLD ENGRA[facility] - CHEMIS TRY ORDERABLES [facility] [address] [place] [address], [facility] [phone] * (ABNORMAL) MM OUTSIDE MAMMO FILM READ (07/07/2022 3:57 PM CDT) Anatomical Region Laterality Modality Other 07/07/2022 7:17 PM CDT Impressions 07/08/2022 8:03 PM CDT IMPRESSION: 1. Large segmental area of fine pleomorphic microcalcifications in the upper inner quadrant of the right breast, mid to posterior depth, extending over 9 cm in anterior to superior extent and likely representing 2 separate adjacent areas, approximately 2 cm apart from one another. These are at a high suspicion for ductal carcinoma in situ/malignancy. 2. Small focal asymmetry in the lateral mid to posterior depth left breast. RECOMMENDATION: 1. Stereotactic guided biopsy x 2 of the right breast of the more anterior aspect and the more posterior aspect of the microcalcifications. This is tentatively scheduled for 07/10/2022, on the day of patient's appointment with Dr. Azar. 2. Diagnostic left mammogram and if indicated that time, left breast ultrasound. Patient will be assisted with scheduling of this in the [facility]. Patient will receive her results from and follow up with Dr. Azar. Right breast: BI-RADS Category 4: Suspicious (subsegmental category 4C: High suspicion for malignancy). Left breast: BI-RADS Category 0: Incomplete: Need additional imaging evaluation OVERALL ASSESSMENT: BI-RADS CATEGORY 4: SUSPICIOUS. (SUBSET CATEGORY 4C: HIGH SUSPICION FOR MALIGNANCY). Note: The findings, conclusions and recommendations within this report do not replace the initial findings, conclusions and recommendations made at the facility where the study was performed, based upon the imaging and clinical condition at that time, and comparison with the prior report and clinical history is necessary. The provided images may or may not represent the [place] source data set and thus may contain changes, which may lower the sensitivity in the second opinion interpretation. > Interpreting Provider: Quyen Kessler MD on 07/08/2022 8:03 PM Narrative 07/08/2022 8:03 PM CDT EXAMINATION: RADIOLOGY CONSULTATION ON OUTSIDE IMAGING STUDIES DATE OF CONSULTATION: 07/07/2022 7:17 PM REASON FOR CONSULTATION / HISTORY: Abnormal mammogram with recommendation for biopsy of the right breast calcifications. OUTSIDE STUDIES FOR REVIEW: 1. Screening bilateral digital mammogram and bilateral tomosynthesis dated 02/10/2022. 2. Digital right diagnostic mammogram and tomosynthesis dated 05/20/2022. The outside final report was provided at the time of this second opinion. FACILITY WHERE STUDY PERFORMED: [facility] in [place], [place]. COMPARISON: None. FINDINGS: Screening mammogram dated 02/10/2022: Bilateral craniocaudal and mediolateral oblique projections were obtained with a total of 6 images. Mole marker placed on the left breast. Breast parenchymal composition: Category B: There are scattered areas of fibroglandular density. Findings: Right breast: Fine pleomorphic segmental calcifications in the upper outer quadrant of the breast mid to posterior depth. There are 2 immediately adjacent areas of calcifications, measuring up to 9 cm in anterior posterior extent by approximately 1.4 cm in right to left extent by 0.8 cm in superior to anterior extent. The anterior aspect of these calcifications is 6.2 cm from the nipple on the craniocaudal view. No soft tissue mass noted. Left breast: Small focal asymmetry in the lateral breast mid to posterior depth 10 cm from the nipple on the craniocaudal view with nipple in profile. This projects superiorly on the MLO view. Diagnostic right mammogram dated 05/20/2022: Right CC, MLO and true lateral and CC and MLO spot magnification compression views obtained with a total of 6 images. Breast parenchymal composition: Category B: There are scattered areas of fibroglandular density. Findings: Additional views confirm segmental fine pleomorphic microcalcifications in the upper inner quadrant of the breast mid to posterior depth. There are 2 directly adjacent areas of calcifications. The more anterior group is 5 cm from the nipple: the craniocaudal view. This more anterior group extends over at least 5 cm in anteroposterior extent. The more posterior group is approximately 2 cm posterior to this group and extends over 2 cm in anterior to posterior extent. The 2 groups together extend over approximately 9 cm in anterior posterior extent. No associated soft tissue asymmetry or mass. Procedure Note Quyen Kessler MD - 07/08/2022 EXAMINATION: RADIOLOGY CONSULTATION ON OUTSIDE IMAGING STUDIES DATE OF CONSULTATION: 07/07/2022 7:17 PM REASON FOR CONSULTATION / HISTORY: Abnormal mammogram withrecommendation for biopsy of the right breast calcifications. OUTSIDE STUDIES FOR REVIEW: 1. Screening bilateral digital mammogram and bilateral tomosynthesisdated 02/10/2022. 2. Digital right diagnostic mammogram and tomosynthesis dated 05/20/2022. The outside final report was provided at the time of this secondopinion. FACILITY WHERE STUDY PERFORMED: [facility] in [place], [place]. COMPARISON: None. FINDINGS: Screening mammogram dated 02/10/2022: Bilateral craniocaudal and mediolateral oblique projections wereobtained with a total of 6 images. Mole marker placed on the left breast. Breast parenchymal composition: Category B: There are scattered areas of fibroglandular density. Findings: Right breast: Fine pleomorphic segmental calcifications in the upperouter quadrant of the breast mid to posterior depth. There are 2 immediately adjacent areas of calcifications, measuring up to 9 cm in anterior posterior extent by approximately 1.4 cm in right to left extent by 0.8cm in superior to anterior extent. The anterior aspect of thesecalcifications is 6.2 cm from the nipple on the craniocaudal view. No soft tissue mass noted. Left breast: Small focal asymmetry in the lateral breast mid toposterior depth 10 cm from the nipple on the craniocaudal view with nipple in profile. This projects superiorly on the MLO view. Diagnostic right mammogram dated 05/20/2022: Right CC, MLO and true lateral and CC and MLO spot magnification compression views obtained with a total of 6 images. Breast parenchymal composition: Category B: There are scattered areas of fibroglandular density. Findings: Additional views confirm segmental fine pleomorphic microcalcifications in the upper inner quadrant of the breast mid to posterior depth. There are 2 directly adjacent areas of calcifications.The more anterior group is 5 cm from the nipple: the craniocaudal view. This more anterior group extends over at least 5 cm in anteroposteriorextent. The more posterior group is approximately 2 cm posterior to this groupand extends over 2 cm in anterior to posterior extent. The 2 groups together extend over approximately 9 cm in anterior posterior extent. Noassociated soft tissue asymmetry or mass. IMPRESSION: 1. Large segmental area of fine pleomorphic microcalcifications in the upper inner quadrant of the right breast, mid to posterior depth,extending over 9 cm in anterior to superior extent and likely representing 2separate adjacent areas, approximately 2 cm apart from one another. These are tremayne high suspicion for ductal carcinoma in situ/malignancy. 2. Small focal asymmetry in the lateral mid to posterior depth leftbreast. RECOMMENDATION: 1. Stereotactic guided biopsy x 2 of the right breast of the moreanterior aspect and the more posterior aspect of the microcalcifications. This is tentatively scheduled for 07/10/2022, on the day of patient'sappointment with Dr. Azar. 2. Diagnostic left mammogram and if indicated that time, left breast ultrasound. Patient will be assisted with scheduling of this in the [facility]. Patient will receive her results from and follow up with Dr. Azar. Right breast: BI-RADS Category 4: Suspicious (subsegmental category 4C: High suspicion for malignancy). Left breast: BI-RADS Category 0: Incomplete: Need additional imaging evaluation OVERALL ASSESSMENT: BI-RADS CATEGORY 4: SUSPICIOUS. (SUBSET [id number]: HIGH SUSPICION FOR MALIGNANCY). Note: The findings, conclusions and recommendations within this reportdo not replace the initial findings, conclusions and recommendations madeat the facility where the study was performed, based upon the imaging and clinical condition at that time, and comparison with the prior reportand clinical history is necessary. The provided images may or may not represent the [place] source data setand thus may contain changes, which may lower the sensitivity in the second opinion interpretation. > Interpreting Provider: Quyen Kessler MD on 07/08/2022 8:03 PM Alexa Azar MD IMAGING from Last 3 Months or Most Recently Relevant to Health Maintenance Advance Directives * Full Code (Latest Code Status on File) Date Activated Date Inactivated Comments 09/05/2022 6:34 PM 09/06/2022 12:43 PM Care Teams Licensed Reactor Operator Relationship Specialty Start Date End Date Jignesh Floyd MD [address] [place] [id number] PCP - General 05/30/22
--- OUTSIDE RECORDS SUMMARY | 2024-12-01 08:27 | XMS_ITS ---
Author Organization [facility] Address [address] [place] [address] Care Team Providers Care Lap Regulator Name Role Phone Jignesh Floyd MD Primary Care Provider [phone] Active Problems Problem Noted Date Diagnosed Date Malignant neoplasm of upper- inner quadrant of right breast in female, estrogen receptor positive 07/18/2022 Cancer Staging:Clinical stage from 07/10/2022:Stage IB(cT2, cN0, cM0, G3, ER+, MD+, HER2+) - Signed by Alexa Azar MD on 07/18/2022 Pathologic stage from 09/05/2022:Stage IA(pT1b(m), pN0(sn), cM0, G3, ER+, MD+, HER2+) - Signed by Alexa Azar MD on 10/01/2022 Current Oncology Plans No current plan information found. Past Plans ONCOLOGY TREATMENT Plan Name Start Date Discontinue Date Treatment Medications Discontinue Reason Plan Provider Cycles BREAST ADJ (PACLITAXEL TRASTUZUMAB) Q7 DAYS --> TRASTUZUMAB Q21 DAYS 3 10/28/2023 PACLitaxel (Taxol) in 250 mL infusiontrastuzumab (Herceptin) infusiontrastuzumab-p krb (Herzuma) infusion Therapy Complete Gio Wilder MD 25 of 25 cycles started Radiation Treatments * No radiation treatments are documented [facility]. Treatments may have been administered in another system. Treatment Summaries Malignant neoplasm of upper-inner quadrant of right breast in female, estrogen receptor positive (HCC)* [facility] [address] [place] [id number] Oncology Treatment Summary Breast Treatment Summary for Betsy Perez 1950 provided on date 10/08/23 Prepared by: Sherrie Ndiaye RN on date: 10/07/23 Primary Care Provider: Jignesh Floyd MD Diagnosis: Malignant neoplasm of upper-inner quadrant of right breast in female, estrogen receptor positive (CMS-HCC) Date of diagnosis: 07/10/22 Age of diagnosis: 71 Tumor Information Cancer Staging Malignant neoplasm of upper-inner quadrant of right breast in female, estrogen receptor positive (CMS-HCC) Staging form: Breast, AJCC 8th Edition - Clinical stage from 07/10/2022: Stage IB (cT2, cN0, cM0, G3, ER+, MD+, HER2+) - Signed by Alexa Azar MD on 07/18/2022 - Pathologic stage from 09/05/2022: Stage IA (pT1b(m), pN0(sn), cM0, G3, ER+, MD+, HER2+) - Signed by Alexa Azar MD on 10/01/2022 Surgery Information Description: Bilateral mastectomies, right SLNB Date: 09/05/22 Surgeon/Facility Name: Dr. Azar [facility] [place] Adjuvant Treatment Recommendations: Medical oncology Initial Imaging Mammogram: Bilateral screening mammogram 02/10/2022 ([place]) -- read by [facility] radiology -- large segmental area of fine pleomorphic calcifications in the upper inner right breast spanning 9cm; small focal asymmetry in the left breast. BIRADS-0 Right diagnostic mammogram 05/20/2022 ([place]) -- fine pleomorphic calcifications in a linear distribution in the slightly outer right breast at the 3:00 location spanning 9cm. BIRADS-4 Left diagnostic mammogram and ultrasound ([facility]) 07/17/2022 -- tiny focal asymmetry in the upper outer left breast 10cfn; no ultrasound correlate; no axillary lymphadenopathy. BIRADS-4 Radiation Information Radiation Oncologist: N/A Chemotherapy Information Chemotherapy Information Medical Oncologist: Gio Wynne MD Regimen: BREAST ADJ (PACLITAXEL TRASTUZUMAB) Q7 DAYS --> TRASTUZUMAB Q21 DAYS Treatment goal: Curative Chemotherapy: trastuzumab (Herceptin) 180.6 mg in 0.9% NaCl IV 278.6 mL infusion, 2 mg/kg = 180.6 mg, Intravenous, ONCE, 18 of 19 cycles Administration: 180.6 mg (12/03/2022), 189 mg (12/10/2022), 194.2 mg (12/24/2022), 180.6 mg (01/07/2023), 190.6 mg (01/14/2023), 180.6 mg (01/21/2023), 546 mg (01/28/2023), 546 mg (02/18/2023), 600 mg (03/11/2023), 600 mg (04/01/2023), 546 mg (04/22/2023), 600 mg (05/13/2023), 546 mg (06/03/2023), 600 mg (06/24/2023), 546 mg (07/15/2023), 546 mg (08/05/2023), 600 mg (08/26/2023), 546 mg (10/07/2023) trastuzumab-pkrb (Herzuma) 357 mg in 0.9% NaCl IV 287 mL infusion, 4 mg/kg = 357 mg, Intravenous, ONCE, 6 of 6 cycles Administration: 357 mg (10/22/2022), 180.6 mg (10/29/2022), 180.6 mg (11/05/2022), 180.6 mg (11/12/2022),180.6 mg (11/19/2022), 180.6 mg (11/26/2022) PACLitaxel (Taxol) 162 mg in 0.9% NaCl IV 297 mL infusion, 80 mg/m2 = 162 mg, Intravenous, ONCE, 12of 12 cycles Administration: 162 mg (10/22/2022), 162 mg (10/29/2022), 162 mg (11/05/2022), 162 mg (11/12/2022), 162 mg (11/19/2022), 162 mg (11/26/2022), 162 mg (12/03/2022), 162 mg (12/10/2022), 162 mg (12/24/2022), 162 mg (01/07/2023), 162 mg (01/14/2023), 162 mg (01/21/2023) Start Date: 10/22/2022 End Date: 10/28/2023 (Planned) Discontinue Date: [Plan is still active] Discontinue Reason: [Plan is still active] Treatment Plan Weight: Weight type: Documented (effective on 10/01/2022), 91.1 kg (entered on 10/01/2022), 162.6 cm (entered on 10/01/2022), BSA 2.03 m2 Adverse effects during treatment: Genetic Testing Genetic Testing: No Other Information Clinical Trials: N/A Pre-treatment Weight: 220 lbs. Post-Treatment Weight: 211 lbs. Psychosocial needs: None Fertility: Menarche at age 17 years Menopause at age cannot recall with first delivery at age 26 years History of ? -- no History of OCP use? -- yes History of HRT use? -- no Possible Late Effects of Your Cancer Treatment Swelling arm Alopecia/Hairloss Nail discoloration Peripheral neuropathy Secondary leukemia or malignancy is possible Depression or anxiety Abnormal vaginal bleeding Bony or joint pains Possible cognitive changes Sexual/hormonal changes Alteration in blood counts Changes to kidney function Fibrosis and scarring of breast at treatment site Darkening and drying of skin Cancer Surveillance Schedule You will be seen more frequently the earlier you are in your surveillance plan. Every patient will have an individualized follow up schedule based on recommendations from national cancer organizations and your specific post- treatment course. Follow up with Location How often Radiation Oncology [facility] Clinical visit every 4-6 months for 5 yrs, then every 12 months Medical Oncology [facility] Surgery [facility] Mammography [facility] Bilateral Diagnostic Mammogram every 12 months Reasons to call: New lesions or mass Chest pain New feelings of sadness or being overwhelmed Unintended weight loss Cough that does not go away Any side effects or questions of care Your follow up schedule is listed below Future Appointments Date Time Provider Department Center 10/08/2023 11:30 AM Alexa Azar MD [facility] 10/28/2023 8:50 AM [facility] 01/06/2024 8:40 AM Eva Banda MD [facility] Contact Information Radiation Oncologist Dr. Neil Fowler Medical Oncologist Dr. Wade [phone] Alexa Azar Social Work Vocational Guidance Counselor Deirdre Cannon Breast Nurse Navigator Sherrie Ndiaye RN [phone] [facility] Hospital Scheduling Primary Care Provider Jignesh Floyd MD [phone] Recommended cancer screenings Colonoscopy: every 10 years beginning at age 50 unless directed otherwise. Last colonoscopy: Unknown Mammogram: Annually beginning at age 40 unless directed otherwise. Last mammogram: 02/10/22--no further mammograms due to bilateral mastectomies. Cervical Cancer Screening: Ages 21-24 No Screening Indicated Ages 25-29 HPV test every 5 yrs (Preferred) HPV/Pap co test every 5 yrs (Acceptable) Pap test every 3 yrs (Acceptable) Ages 30-65 HPV test every 5 yrs (Preferred) HPV/Pap co test every 5 yrs (Acceptable) Pap test every 3 yrs (Acceptable) Age 65 and older No screening if a series of prior tests were normal General Wellness Screening Blood Pressure: annually Weight: annually Lipids: Women age >= 45 should be screened for lipid(cholesterol) disorder Diabetes: Discuss with your primary care provider especially if you are overweight or have high blood pressure Bone Density: Women age >= 65 should be screened for osteoporosis Vision: No routine screening recommended. If you think your vision has changed, get a vision examination. Hearing: No routine screening recommended. If you think your hearing has changed, get a hearing examination. Dental: Dental examinations every 6 months are recommended. If you have had radiation, you should discuss fluoride treatments with your dentist. Staying Healthy Immunizations: Annual flu shot Tetanus booster every 10 years Diptheria booster if you haven???t had one Shingles vaccine at age 60 if you have had chicken pox Pneumonia vaccine at ages between 19-64 if chronically ill; at age 65 for all people Sun Exposure: Wear sunscreen daily. Apply liberally when outside and wear protective clothing. Nutrition: A healthy weight and a balanced diet will Tobacco: Avoid all tobacco and vapor products. If you have not been able to quit, ask for help. Alcohol: Moderate alcohol intake is acceptable. If you think you drink too much, we can help you find resources to help you quit. Drugs: Illegal drugs should be avoided. If you use any of these substances, ask for help with stopping. Activity: Staying active helps your heart, your lungs, and your immune system. Take every opportunity to walk a few extra steps. Important Resources [email or web address] [employer] cancer.org Association of Cancer Online Resources acor.org Caring Bridge caringbridge.org CancerCare cancercare.org LiveStrong Foundation livestrong.org National Cancer [place] cancer.gov Cancer Survivors Network csn.cancer.org National Coalition for Cancer Survivorship canceradvocacy.org [place] [employer] Clinical Oncologists cancer.net Cancer Support [facility] www.cancersupportstl.org Radiation Therapy Questions/Answers www.rtanswers.org
--- OUTSIDE RECORDS SUMMARY | 2024-12-01 08:27 | XMS_ITS | Patient Health Summary ---
Author Organization [facility] [employer] Address [address] [place] [address] Care Team Providers Care Cash On Delivery Clerk Name Role Phone Jignesh Floyd MD Primary Care Provider [phone] Note from [facility] [place],non-owned Affiliates and Associated Physician Practices is amultiple site organization consisting of ambulatory clinics and hospital sitesin [place], [place], [place] and [place]. This disclosure is being madepursuant to the Care Everywhere program and may not contain all information available regarding this patient. Last updated 18.[facility] Allergies No known active allergies Medications * Be aware that medications may not be up to date on this document. Alwaysverify current medications with the patient. * amLODIPine (Norvasc) 10 MG tablet(Started 06/01/2022) Take 1 (one) tablet by mouth once daily * lisinopril (Prinivil; Zestril) 30 MG tablet(Started 06/20/2022) Take 1 (one) tablet by mouth once daily * Cholecalciferol (vitamin D3) 1.25 MG (46064 UT) capsule(Started 09/23/2022) Take 1 (one) capsule by mouth every 7 days * prochlorperazine (Compazine) 10 MG tablet(Started 10/14/2022) Take 1 (one) tablet by mouth every 6 hours as needed for Nausea/Vomiting 6 refills by 10/14/2023 * ondansetron (Zofran) 8 MG tablet(Started 10/14/2022) Take 1 (one) tablet by mouth every 8 hours as needed for Nausea/Vomiting 6 refills by 10/14/2023 * letrozole (Femara) 2.5 MG tablet(Started 02/11/2024) Take 1 (one) tablet by mouth once daily 3 refills by 02/10/2025 * Jardiance 10 MG tablet(Started 06/14/2024) Take 1 (one) tablet by mouth once daily Active Problems Problem Noted Date Diagnosed Date Malignant neoplasm of upper- inner quadrant of right breast in female, estrogen receptor positive 07/18/2022 Cancer Staging:Clinical stage from 07/10/2022:Stage IB(cT2, cN0, cM0, G3, ER+, CA+, HER2+) - Signed by Alexa Azar MD on 07/18/2022 Pathologic stage from 09/05/2022:Stage IA(pT1b(m), pN0(sn), cM0, G3, ER+, CA+, HER2+) - Signed by Alexa Azar MD on 10/01/2022 Social History Tobacco Use Types Packs/Day Years [...] Sex Assigned at Female 08/08/2022 1:01 AM CLINICAL NURSING INTERN Gender Identity Female 08/08/2022 1:01 AM CLINICAL NURSING INTERN Sexual Orientation Straight 08/08/2022 1: 01 AM CLINICAL NURSING INTERN Last Filed Vital Signs Vital Sign Reading Time Taken Comments Blood Pressure 110/69 07/06/2024 9:52 AM CDT Pulse 61 07/06/2024 9:52 AM CDT Temperature 36.6 C (97.8 F) 07/06/2024 9:52 AM CDT Respiratory Rate 20 07/06/2024 9:52 AM CDT Oxygen Saturation 99% 07/06/2024 9:52 AM CDT Inhaled Oxygen Concentration 21% 09/05/2022 6 :55 PM CLINICAL NURSING INTERN Weight 93.8 kg (206 lb 12.8 oz) 07/06/2024 9:52 AM CDT Height 162.6 cm (5' 4 ) 06/20/2024 10:0 9 AM CDT Body Mass Index 35.5 06/20/2024 10:09 AM CDT Medical Devices Implanted Type Area Absorption And Adsorption Engineer Device Identifier Shelf Expiration Date Model / Serial / Lot Mrkr Apl 3 Mrfbr Pd Radopq Interwoven Implanted:Qty: 1 on 07/10/2022 by Quyen Kessler MD at [facility] Right: Breast Bard Peripheral Vascular 01/20/2024 [id number] / / [id number] Mrkr Apl 3 Mrfbr Pd Radopq Interwoven Implanted:Qty: 1 on 07/10/2022 by Quyen Kessler MD at [facility] Right: Breast Bard Peripheral Vascular 02/20/2024 [id number] / / [id number] Mrkr Apl 3 Mrfbr Pd Radopq Interwoven Implanted:Qty: 1 on 07/21/2022 by Quyen Kessler MD at [facility] Left: Breast Bard Peripheral Vascular 02/20/2024 [id number] / / [id number] Natrelle [employer] 500cc Implanted:Qty: 1 on 09/05/2022 by Larissa Wooten MD at [facility] Right: Breast 09/14/2026 133S-MX-13- T / [id number] / Natrelle [employer] Dedicated Truck Driver 500cc Implanted:Qty: 1 on 09/05/2022 by Alexa Azar MD at [facility] Left: Breast 11/04/2026 133S-MS-13- T / [id number] / Alloderm Select Tissue Matrix Large Contour Implanted:Qty: 1 on 09/05/2022 by Larissa Wooten MD at [facility] Right: Breast 07/21/2023 [id number] / / [id number] Alloderm Select Tissue Matrix Contour Large Implanted:Qty: 1 on 09/05/2022 by Larissa Wooten MD at [facility] Left: Breast 09/20/2023 [id number] / / [id number] Port Implinfn Powerport Clrvu Argd Smita Implanted:Qty: 1 on 10/21/2022 at [facility] Bard Peripheral Vascular 12/20/2023 [id number] / / [id number] Procedures * VITAMIN D 25-HYDROXY(Performed 07/06/2024) Performed for Malignant neoplasm of upper-inner quadrant of right breast in female, estrogen receptor positive (HCC) * COMPREHENSIVE METABOLIC PANEL(Performed 07/06/2024) Performed for Malignant neoplasm of upper-inner quadrant of right breast in female, estrogen receptor positive (HCC) * CBC W AUTO DIFFERENTIAL(Performed 07/06/2024) Performed for Malignant neoplasm of upper-inner quadrant of right breast in female, estrogen receptor positive (HCC) * IR AMNA CATH REMOVAL(Performed 01/18/2024) Performed for Malignant neoplasm of upper-inner quadrant of right breast in female, estrogen receptor positive (HCC) * COMPREHENSIVE METABOLIC PANEL(Performed 01/06/2024) Performed for Malignant neoplasm of upper-inner quadrant of right breast in female, estrogen receptor positive (HCC) * CBC W AUTO DIFFERENTIAL(Performed 01/06/2024) Performed for Malignant neoplasm of upper-inner quadrant of right breast in female, estrogen receptor positive (HCC) * ECHO COMPLETE(Performed 11/30/2023) Performed for Malignant neoplasm of upper-inner quadrant of right breast in female, estrogen receptor positive (HCC) * MAMMO RIGHT DIAGNOSTIC W CHERELLE(Performed 10/28/2023) Performed for Malignant neoplasm of upper-inner quadrant of right breast in female, estrogen receptor positive (HCC), Mass of breast, unspecified laterality * US BREAST BILATERAL LTD(Performed 10/28/2023) Performed for Malignant neoplasm of upper-inner quadrant of right breast in female, estrogen receptor positive (HCC), Mass of breast, unspecified laterality * COMPREHENSIVE METABOLIC PANEL(Performed 10/28/2023) Performed for Malignant neoplasm of upper-inner quadrant of right breast in female, estrogen receptor positive (HCC) * CBC W AUTO DIFFERENTIAL(Performed 10/28/2023) Performed for Malignant neoplasm of upper-inner quadrant of right breast in female, estrogen receptor positive (HCC) * COMPREHENSIVE METABOLIC PANEL(Performed 10/07/2023) Performed for Malignant neoplasm of upper-inner quadrant of right breast in female, estrogen receptor positive (HCC) * CBC W AUTO DIFFERENTIAL(Performed 10/07/2023) Performed for Malignant neoplasm of upper-inner quadrant of right breast in female, estrogen receptor positive (HCC) * COMPREHENSIVE METABOLIC PANEL(Performed 08/26/2023) Performed for Malignant neoplasm of upper-inner quadrant of right breast in female, estrogen receptor positive (HCC) * CBC W AUTO DIFFERENTIAL(Performed 08/26/2023) Performed for Malignant neoplasm of upper-inner quadrant of right breast in female, estrogen receptor positive (HCC) * COMPREHENSIVE METABOLIC PANEL(Performed 08/05/2023) Performed for Malignant neoplasm of upper-inner quadrant of right breast in female, estrogen receptor positive (HCC) * CBC W AUTO DIFFERENTIAL(Performed 08/05/2023) Performed for Malignant neoplasm of upper-inner quadrant of right breast in female, estrogen receptor positive (HCC) * COMPREHENSIVE METABOLIC PANEL(Performed 07/15/2023) Performed for Malignant neoplasm of upper-inner quadrant of right breast in female, estrogen receptor positive (HCC) * CBC W AUTO DIFFERENTIAL(Performed 07/15/2023) Performed for Malignant neoplasm of upper-inner quadrant of right breast in female, estrogen receptor positive (HCC) * ECHO COMPLETE W CONTRAST(Performed 07/07/2023) Performed for Malignant neoplasm of upper-inner quadrant of right breast in female, estrogen receptor positive (HCC) * COMPREHENSIVE METABOLIC PANEL(Performed 06/24/2023) Performed for Malignant neoplasm of upper-inner quadrant of right breast in female, estrogen receptor positive (HCC) * CBC W AUTO DIFFERENTIAL(Performed 06/24/2023) Performed for Malignant neoplasm of upper-inner quadrant of right breast in female, estrogen receptor positive (HCC) * COMPREHENSIVE METABOLIC PANEL(Performed 06/03/2023) Performed for Malignant neoplasm of upper-inner quadrant of right breast in female, estrogen receptor positive (HCC) * CBC W AUTO DIFFERENTIAL(Performed 06/03/2023) Performed for Malignant neoplasm of upper-inner quadrant of right breast in female, estrogen receptor positive (HCC) * COMPREHENSIVE METABOLIC PANEL(Performed 05/13/2023) Performed for Malignant neoplasm of upper-inner quadrant of right breast in female, estrogen receptor positive (HCC) * CBC W AUTO DIFFERENTIAL(Performed 05/13/2023) Performed for Malignant neoplasm of upper-inner quadrant of right breast in female, estrogen receptor positive (HCC) * COMPREHENSIVE METABOLIC PANEL(Performed 04/22/2023) Performed for Malignant neoplasm of upper-inner quadrant of right breast in female, estrogen receptor positive (HCC) * CBC W AUTO DIFFERENTIAL(Performed 04/22/2023) Performed for Malignant neoplasm of upper-inner quadrant of right breast in female, estrogen receptor positive (HCC) * COMPREHENSIVE METABOLIC PANEL(Performed 04/01/2023) Performed for Malignant neoplasm of upper-inner quadrant of right breast in female, estrogen receptor positive (HCC) * CBC W AUTO DIFFERENTIAL(Performed 04/01/2023) Performed for Malignant neoplasm of upper-inner quadrant of right breast in female, estrogen receptor positive (HCC) * COMPREHENSIVE METABOLIC PANEL(Performed 03/11/2023) Performed for Malignant neoplasm of upper-inner quadrant of right breast in female, estrogen receptor positive (HCC) * CBC W AUTO DIFFERENTIAL(Performed 03/11/2023) Performed for Malignant neoplasm of upper-inner quadrant of right breast in female, estrogen receptor positive (HCC) * ECHO COMPLETE(Performed 03/11/2023) Performed for Malignant neoplasm of upper-inner quadrant of right breast in female, estrogen receptor positive (HCC) * COMPREHENSIVE METABOLIC PANEL(Performed 02/18/2023) Performed for Malignant neoplasm of upper-inner quadrant of right breast in female, estrogen receptor positive (HCC) * CBC W AUTO DIFFERENTIAL(Performed 02/18/2023) Performed for Malignant neoplasm of upper-inner quadrant of right breast in female, estrogen receptor positive (HCC) * COMPREHENSIVE METABOLIC PANEL(Performed 01/28/2023) Performed for Malignant neoplasm of upper-inner quadrant of right breast in female, estrogen receptor positive (HCC) * CBC W AUTO DIFFERENTIAL(Performed 01/28/2023) Performed for Malignant neoplasm of upper-inner quadrant of right breast in female, estrogen receptor positive (HCC) * COMPREHENSIVE METABOLIC PANEL(Performed 01/21/2023) Performed for Malignant neoplasm of upper-inner quadrant of right breast in female, estrogen receptor positive (HCC) * CBC W AUTO DIFFERENTIAL(Performed 01/21/2023) Performed for Malignant neoplasm of upper-inner quadrant of right breast in female, estrogen receptor positive (HCC) * COMPREHENSIVE METABOLIC PANEL(Performed 01/14/2023) Performed for Malignant neoplasm of upper-inner quadrant of right breast in female, estrogen receptor positive (HCC) * CBC W AUTO DIFFERENTIAL(Performed 01/14/2023) Performed for Malignant neoplasm of upper-inner quadrant of right breast in female, estrogen receptor positive (HCC) * COMPREHENSIVE METABOLIC PANEL(Performed 01/07/2023) Performed for Malignant neoplasm of upper-inner quadrant of right breast in female, estrogen receptor positive (HCC) * CBC W AUTO DIFFERENTIAL(Performed 01/07/2023) Performed for Malignant neoplasm of upper-inner quadrant of right breast in female, estrogen receptor positive (HCC) * COMPREHENSIVE METABOLIC PANEL(Performed 12/24/2022) Performed for Malignant neoplasm of upper-inner quadrant of right breast in female, estrogen receptor positive (HCC) * CBC W AUTO DIFFERENTIAL(Performed 12/24/2022) Performed for Malignant neoplasm of upper-inner quadrant of right breast in female, estrogen receptor positive (HCC) * COMPREHENSIVE METABOLIC PANEL(Performed 12/10/2022) Performed for Malignant neoplasm of upper-inner quadrant of right breast in female, estrogen receptor positive (HCC) * CBC W AUTO DIFFERENTIAL(Performed 12/10/2022) Performed for Malignant neoplasm of upper-inner quadrant of right breast in female, estrogen receptor positive (HCC) * COMPREHENSIVE METABOLIC PANEL(Performed 12/03/2022) Performed for Malignant neoplasm of upper-inner quadrant of right breast in female, estrogen receptor positive (HCC) * CBC W AUTO DIFFERENTIAL(Performed 12/03/2022) Performed for Malignant neoplasm of upper-inner quadrant of right breast in female, estrogen receptor positive (HCC) * COMPREHENSIVE METABOLIC PANEL(Performed 11/26/2022) Performed for Malignant neoplasm of upper-inner quadrant of right breast in female, estrogen receptor positive (HCC) * CBC W AUTO DIFFERENTIAL(Performed 11/26/2022) Performed for Malignant neoplasm of upper-inner quadrant of right breast in female, estrogen receptor positive (HCC) * COMPREHENSIVE METABOLIC PANEL(Performed 11/19/2022) Performed for Malignant neoplasm of upper-inner quadrant of right breast in female, estrogen receptor positive (HCC) * CBC W AUTO DIFFERENTIAL(Performed 11/19/2022) Performed for Malignant neoplasm of upper-inner quadrant of right breast in female, estrogen receptor positive (HCC) * CBC W AUTO DIFFERENTIAL(Performed 11/12/2022) Performed for Malignant neoplasm of upper-inner quadrant of right breast in female, estrogen receptor positive (HCC) * COMPREHENSIVE METABOLIC PANEL(Performed 11/12/2022) Performed for Malignant neoplasm of upper-inner quadrant of right breast in female, estrogen receptor positive (HCC) * COMPREHENSIVE METABOLIC PANEL(Performed 11/05/2022) * CBC W AUTO DIFFERENTIAL(Performed 11/05/2022) * ECHO COMPLETE(Performed 10/30/2022) Performed for Malignant neoplasm of upper-inner quadrant of right breast in female, estrogen receptor positive (HCC) * COMPREHENSIVE METABOLIC PANEL(Performed 10/29/2022) * CBC W AUTO DIFFERENTIAL(Performed 10/29/2022) * IR AMNA CATH INSERT(Performed 10/21/2022) Performed for Malignant neoplasm of upper-inner quadrant of right breast in female, estrogen receptor positive (HCC) * CBC W/O DIFFERENTIAL(Performed 10/21/2022) Performed for Malignant neoplasm of upper-inner quadrant of right breast in female, estrogen receptor positive (HCC) * BASIC METABOLIC PANEL (CALCIUM TOTAL)(Performed 10/21/2022) Performed for Malignant neoplasm of upper-inner quadrant of right breast in female, estrogen receptor positive (HCC) * PT-INR [facility](Performed 10/21/2022) Performed for Malignant neoplasm of upper-inner quadrant of right breast in female, estrogen receptor positive (HCC) * ECHO COMPLETE(Performed 10/17/2022) Performed for Malignant neoplasm of upper-inner quadrant of right breast in female, estrogen receptor negative (HCC) * PERIPHERAL IV NOTE(Performed 09/05/2022) * PATHOLOGY TISSUE(Performed 09/05/2022) Performed for Malignant neoplasm of upper-inner quadrant of right breast in female, estrogen receptor positive (HCC) * MAMMO BREAST RIGHT SPECIMEN(Performed 09/05/2022) Performed for Malignant neoplasm of upper-inner quadrant of right breast in female, estrogen receptor positive (HCC) * CA TISSUE MASS SPECTROMETRY SPECIALIST PLACEMENT BREAST RECONSTRUCTION(Performed 09/05/2022) Performed for Malignant neoplasm of upper-inner quadrant of right breast in female, estrogen receptor positive (HCC) * CA BX/REMV,LYMPH NODE,DEEP AXILL(Performed 09/05/2022) Performed for Malignant neoplasm of upper-inner quadrant of right breast in female, estrogen receptor positive (HCC) * MASTECTOMY(Performed 09/05/2022) Performed for Malignant neoplasm of upper-inner quadrant of right breast in female, estrogen receptor positive (HCC) * ENDOTRACHEAL TUBE NOTE(Performed 09/05/2022) * NM SENTINEL NODE INJECTION(Performed 09/05/2022) Performed for Malignant neoplasm of upper-inner quadrant of right breast in female, estrogen receptor positive (HCC) * TYPE + SCREEN PANEL(Performed 09/05/2022) Performed for Malignant neoplasm of upper-inner quadrant of right breast in female, estrogen receptor positive (HCC) * XR CHEST 2VW(Performed 07/30/2022) Performed for Malignant neoplasm of upper-inner quadrant of right breast in female, estrogen receptor positive (HCC), Pre-op evaluation * BASIC METABOLIC PANEL (CALCIUM TOTAL)(Performed 07/30/2022) Performed for Malignant neoplasm of upper-inner quadrant of right breast in female, estrogen receptor positive (HCC), Pre-op evaluation * CBC W AUTO DIFFERENTIAL(Performed 07/30/2022) Performed for Malignant neoplasm of upper-inner quadrant of right breast in female, estrogen receptor positive (HCC), Pre-op evaluation * MAMMO LEFT POST CLIP OR WIRE(Performed 07/21/2022) Performed for Abnormal mammogram * MAMMO STEREOTACTIC LEFT BIOPSY(Performed 07/21/2022) Performed for Abnormal mammogram * PATHOLOGY TISSUE(Performed 07/21/2022) Performed for Abnormal mammogram * US BREAST LEFT LTD(Performed 07/17/2022) Performed for Abnormal mammogram * MAMMO LEFT DIAGNOSTIC W CHERELLE(Performed 07/17/2022) Performed for Abnormal mammogram * MAMMO STEREOTACTIC RIGHT BIOPSY(Performed 07/10/2022) Performed for Abnormal mammogram * MAMMO RIGHT POST CLIP OR WIRE W CHERELLE(Performed 07/10/2022) Performed for Abnormal mammogram * PATHOLOGY TISSUE(Performed 07/10/2022) Performed for Abnormal mammogram * MM OUTSIDE MAMMOGRAM(Performed 07/07/2022) Performed for Abnormal mammogram Results * (ABNORMAL) VITAMIN D 25-HYDROXY (07/06/2024 9:24 AM CDT) Vitamin D, 25 Hydroxy >100.0(H) 30.0 - 80.0 ng/mL 07/06/2024 10:40 AM CDT [facility] Comment: The recommendations for 25-Hydroxy Vitamin D clinical decision points are as follows: Deficient: <20.0 ng/mL Insufficient: 20.0 - 29.9 ng/mL Sufficient: 30.0 - 100.0 ng/mL Potential Toxicity: >100 ng/mL Reference: The Endocrine Society Clinical Practice Guidelines. 2011 If the 25-Hydroxy Vitamin D results are inconsitent with clinical evidence, it is recommended that follow-up testing using a method such as LC/MS/MS be performed to confirm the result. Blood BLOOD SPECIMEN / Unknown Lab Venipuncture / Unknown 07/06/2024 9:24 AM CDT 07/06/2024 9:26 AM CDT Corinne Jean ENFORCEMENT OFFICER-RHEUMATOLOGY SPECIALIST LAB - CHEMIS TRY ORDERABLES [facility] [address] [place] [id number], [facility] [phone] * CBC W/ DIFFERENTIAL (07/06/2024 9:24 AM CDT) Only the most recent of27 resultswithin the time period is included. WBC 9.4 4.0 - 10.7 x10E9/L 07/06/2024 9:34 AM [facility] RBC Count 4.53 3.90 - 5.20 x10E12/L 07/06/2024 9:34 AM [facility] Hemoglobin 13.0 11.9 - 15.8 g/dL 07/06/2024 9:34 AM [facility] Hematocrit 39.7 34.8 - 46.1 % 07/06/2024 9:34 AM [facility] MCV 87.6 80.0 - 98.0 fL 07/06/2024 9:34 AM [facility] MCH 28.7 26.7 - 33.6 pg 07/06/2024 9:34 AM [facility] MCHC 32.7 31.7 - 36.3 g/dL 07/06/2024 9:34 AM [facility] RDW-CV 12.9 11.3 - 14.8 % 07/06/2024 9:34 AM [facility] Platelet Count 277 150 - 420 x10E9/L 07/06/2024 9:34 AM [facility] MPV 10.1 7.8 - 11.4 fL 07/06/2024 9:34 AM [facility] Neutrophil % 59.8 41.0 - 74.0 % 07/06/2024 9:34 AM [facility] Lymphocyte % 28.4 17.0 - 47.0 % 07/06/2024 9:34 AM [facility] Monocyte % 8.1 3.0 - 11.0 % 07/06/2024 9:34 AM [facility] Eosinophil % 2.8 0.0 - 7.0 % 07/06/2024 9:34 AM [facility] Basophil % 0.6 0.0 - 1.6 % 07/06/2024 9:34 AM [facility] Immature Granulocytes % 0.3 0.0 - 1.0 % 07/06/2024 9:34 AM [facility] Neutrophil Absolute 5.62 1.60 - 7.50 x10E9/L 07/06/2024 9:34 AM [facility] Lymphocyte Absolute 2.67 1.00 - 4.40 x10E9/L 07/06/2024 9:34 AM [facility] Monocyte Absolute 0.76 0.15 - 1.00 x10E9/L 07/06/2024 9:34 AM [facility] Eosinophil Absolute 0.26 0.00 - 0.60 x10E9/L 07/06/2024 9:34 AM [facility] Basophil Absolute 0.06 0.00 - 0.13 x10E9/L 07/06/2024 9:34 AM [facility] Blood BLOOD SPECIMEN / Unknown Lab Venipuncture / Unknown 07/06/2024 9:24 AM CDT 07/06/2024 9:26 AM [facility] Corinne Jean ENFORCEMENT OFFICER-RHEUMATOLOGY SPECIALIST LAB - HEMATO LOGY ORDERABLES [facility] [address] [place] [address], [facility] [phone] * (ABNORMAL) COMPREHENSIVE METABOLIC PANEL (07/06/2024 9:24 AM [facility]) Only the most recent of26 resultswithin the time period is included. BUN 25 7 - 26 mg/dL 07/06/2024 10:21 AM [facility] Creatinine 1.36(H) 0.56 - 0.96 mg/dL 07/06/2024 10:21 AM [facility] Sodium 144 136 - 145 mmol/L 07/06/2024 10:21 AM [facility] Potassium 4.4 3.5 - 4.5 mmol/L 07/06/2024 10:21 AM [facility] Chloride 110(H) 98 - 107 mmol/L 07/06/2024 10:21 AM [facility] CO2 25 22 - 29 mmol/L 07/06/2024 10:21 AM [facility] Glucose 105 70 - 115 mg/dL 07/06/2024 10:21 AM [facility] Calcium 10.2 8.4 - 10.2 mg/dL 07/06/2024 10:21 AM [facility] Protein Total 7.3 6.0 - 8.3 g/dL 07/06/2024 10:21 AM [facility] Albumin 4.1 3.4 - 5.0 g/dL 07/06/2024 10:21 AM [facility] Bilirubin Total 0.4 0.2 - 1.2 mg/dL 07/06/2024 10:21 AM [facility] Alkaline Phosphatase 57 40 - 150 U/L 07/06/2024 10:21 AM [facility] ALT 15 5 - 55 U/L 07/06/2024 10:21 AM [facility] AST 16 5 - 34 U/L 07/06/2024 10:21 AM [facility] Anion Gap 9 6 - 16 07/06/2024 10:21 AM [facility] BUN/Creatinine Ratio 18 7 - 23 07/06/2024 10:21 AM [facility] Osmolality Calculated 303(H) 275 - 295 mOsm/kg 07/06/2024 10:21 AM CDT [facility] Albumin/Globulin Ratio 1.3 1.1 - 2.3 07/06/2024 10:21 AM CDT [facility] eGFR by CKD-EPI 42(L) >=90 mL/min/1.7 3 m2 07/06/2024 10:21 AM CDT [facility] Blood BLOOD SPECIMEN / Unknown Lab Venipuncture / Unknown 07/06/2024 9:24 AM CDT 07/06/2024 9:26 AM CDT Corinne Jean ENFORCEMENT OFFICER-RHEUMATOLOGY SPECIALIST LAB - CHEMIS TRY ORDERABLES [facility] [address] [place] [phone], [facility] [phone] * IR AMNA CATH REMOVAL (01/18/2024 9:25 AM CDT) Anatomical Region Laterality Modality X-Ray Angiograph y 01/18/2024 9:22 AM CDT Narrative 01/18/2024 9:23 AM CDT PROCEDURE: IR AMNA CATH REMOVAL DATE/TIME OF EXAM: 01/18/2024 7:00 AM CLINICAL INFORMATION: None relevant/not provided if blank. Indication: C50.211: Malignant neoplasm of upper-inner quadrant of right breast in female, estrogen receptor positive (HCC) Z17.0: Malignant neoplasm of upper-inner quadrant of right breast in female, estrogen receptor positive (HCC) This is an Interventional Nephology procedure performed on 01/18/2024 9:22 AM Attending: Klarissa Fraser M.D. Procedure: Removal of a tunneled catheter with subcutaneous port Indication: Port no longer needed Procedure details: After informed consent, the patient was taken to the angiography suite and placed on the fluoroscopy table. A workforce staffing advisor X-ray showed the port with the attached catheter in place. The right chest was cleansed with chlorhexidine and draped in a sterile fashion. Local anesthetic was used to infiltrate the skin and subcutaneous tissue over the port. An incision was made over the scar of the port placement incision. Using a combination of blunt dissection and electric Bovie, the port was freed from scar tissue and removed from the subcutaneous pocket. A 3-0 pursestring Vicryl suture was placed around the catheter which was pulled out as the suture was tied to secure the catheter tunnel. The port pocket was closed with 3-0 Vicryl subcutaneous sutures and the incision skin with a 4-0 Vicryl subcuticular running suture line. A dressing was applied. The port and catheter were removed in their entirety and a post procedure workforce staffing advisor X-ray confirmed removal. The patient tolerated the procedure. Moderate sedation on this adult patient was ordered by me, administered intravenously in my presence, and monitored by the procedure nurse as an independent trained observer who was present throughout the procedure. The following parameters were monitored: oxygen saturation, heart rate, blood pressure, and response to care. Intra-service sedation start time was 0859 and end time was 0918 during which I was present. Total physician intra-service sedation time was 19 minutes. For details on pre-moderate sedation and post-moderate sedation patient evaluation, please review the evaluation forms in [facility]. For details on monitored clinical parameters during the intra-service sedation time, please review the procedure nurse documentation in [facility]. I was present throughout the procedure. > Interpreting Provider: Ivonne Fraser MD on 01/18/2024 9:23 AM Procedure Note Teto Fraser MD - 01/18/2024 PROCEDURE: IR AMNA CATH REMOVAL DATE/TIME OF EXAM: 01/18/2024 7:00 AM CLINICAL INFORMATION: None relevant/not provided if blank. Indication: C50.211: Malignant neoplasm of upper-inner quadrant of right breast in female, estrogen receptor positive (HCC) Z17.0: Malignant neoplasm of upper-inner quadrant of right breast in female, estrogen receptor positive (HCC) This is an Interventional Nephology procedure performed on 49:22 AM Attending: Klarissa Fraser M.D. Procedure: Removal of a tunneled catheter with subcutaneous port Indication: Port no longer needed Procedure details: After informed consent, the patient was taken to the angiography suiteand placed on the fluoroscopy table. A workforce staffing advisor X-ray showed the port with the attached catheter in place. The right chest was cleansed with chlorhexidine and draped in a sterile fashion. Local anesthetic was used to infiltrate the skin andsubcutaneous tissue over the port. An incision was made over the scar of the port placement incision. Using a combination of blunt dissection and electric Bovie, the port was freed from scar tissue and removed from the subcutaneous pocket. A 3-0 pursestring Vicryl suture was placed around the catheter which waspulled out as the suture was tied to secure the catheter tunnel. The port pocket was closed with 3-0 Vicryl subcutaneous sutures and the incision skin with a 4-0 Vicryl subcuticular running suture line. A dressing was applied. The port and catheter were removed in their entirety and a postprocedure workforce staffing advisor X-ray confirmed removal. The patient tolerated the procedure. Moderate sedation on this adult patient was ordered by me, administered intravenously in my presence, and monitored by the procedure nurse as an independent trained observer who was present throughout the procedure.The following parameters were monitored: oxygen saturation, heart rate,blood pressure, and response to care. Intra-service sedation start time [id number] and end time was 0918 during which I was present. Total physician intra-service sedation time was 19 minutes. For details on pre-moderate sedation and post-moderate sedation patient evaluation, please reviewthe evaluation forms in [facility]. For details on monitored clinical parameters during the intra-service sedation time, please review the procedurenurse documentation in [facility]. I was present throughout the procedure. > Interpreting Provider: Ivonne Fraser MD on 01/18/2024 9:23 AM Darius Wade MD IR ORDERABLES * ECHO COMPLETE (11/30/2023 8:35 AM CDT) Only the most recent of3 resultswithin the time period is included. LVOT stroke vol 86.92 mL SSM CV FUJI PACS LVOT stroke vol index 40.85 mL/m2 SSM CV FUJI PACS LV stroke vol 2D teich 69.931 ml SSM CV FUJI PACS LV Stroke Index 2D Teich 32.87 mL/m2 SSM CV FUJI PACS LVIDd 4.73 3.8 - 5.2 cm SSM CV FUJI PACS LVIDs 2.97 2.2 - 3.5 cm SSM CV FUJI PACS IVSd 2D 0.768 0.6 - 0.9 cm SSM CV FUJI PACS LVPWd 0.87 0.6 - 0.9 cm SSM CV FUJI PACS Fractional Shortening 2D 37 28 - 44 % SSM CV FUJI PACS LV ESV 2D 34.043 14 - 42 mL SSM CV FUJI PACS LV ESV index 2D 16.00 8 - 24 mL/m2 SSM CV FUJI PACS LV EDV 2D 103.974 46 - 106 mL SSM CV FUJI PACS LV EDV index 2D 48.87 29 - 61 mL/m2 SSM CV FUJI PACS LVOT diam 2.0 cm SSM CV FUJ I PACS LVOT area 3.24 cm2 SSM CV FUJ I PACS LV RWT 0.369 SSM CV FUJ I PACS IVS/LVPW 0.881 SSM CV FUJ I PACS LV mass 2D 127.638 66 - 150 g SSM CV FUJI PACS LV mass index 2D 59.99 44 - 88 g/m2 SSM CV FUJI PACS MV E pk minna 103.152 cm/s SSM CV F UJI PACS MV avg E/e' ratio 9.81 SS M CV FUJI PACS MV A pk minna 114.597 cm/s SSM CV F UJI PACS MV E A ratio 0.90 SSM CV FUJI PACS MV E' lateral minna 11.592 cm/s SS M CV FUJI PACS MV DT 263 ms SSM CV FUJ I PACS MV E' septal minna 9.618 cm/s SSM CV FUJI PACS MV A duration 131 ms SSM CV FUJI PACS MV E/e' septal 10.725 SSM C V FUJI PACS MV E/e' lateral 8.899 SSM CV FUJI PACS LA vol BP 46.311 mL SSM CV FUJ I PACS TR pk minna 299.4 cm/s SSM CV [facility] I PACS P vein A minna 32.2 cm/s SSM CV FUJI PACS P vein A duration 117 msec SS M CV FUJI PACS P vein S/D ratio 1.25 SSM CV FUJI PACS LVOT pk minna 1.29 m/s SSM CV F UJI PACS LVOT mn minna 0.82 m/s SSM CV F UJI PACS LVOT mn grad 3.2 mmHg SSM CV FUJI PACS LVOT Cardiac Output 6.692 l/min SSM CV FUJI PACS LVOT Cardiac Index 3.15 l/min/m2 SSM CV FUJI PACS GPLS AVG -20.5 % SSM CV FUJ I PACS GPLS A2C -19.0 % SSM CV FUJ I PACS GPLS A4C -21.4 % SSM CV FUJ I PACS GPLS APLAX -21.2 % SSM CV FU JI PACS AA pk sys strain -22.3 % SSM CV FUJI PACS AAS pk sys strain -28.7 % SS M CV FUJI PACS AI pk sys strain -22.8 % SSM CV FUJI PACS AL pk sys strain -26.2 % SSM CV FUJI PACS AP pk sys strain -26.1 % SSM CV FUJI PACS pk sys strain -27.1 % SSM CV FUJI PACS BA pk sys strain -18.9 % SSM CV FUJI PACS BAS pk sys strain -14.9 % SS M CV FUJI PACS BI pk sys strain -14.9 % SSM CV FUJI PACS BL pk sys strain -25.9 % SSM CV FUJI PACS BS pk sys strain -10.7 % SSM CV FUJI PACS MA pk sys strain -21.3 % SSM CV FUJI PACS MAS pk sys strain -19.5 % SS M CV FUJI PACS MS pk sys strain -18.7 % SSM CV FUJI PACS ML pk sys strain -21.0 % SSM CV FUJI PACS MP pk sys strain -23.1 % SSM CV FUJI PACS MS pk sys strain -22.3 % SSM CV FUJI PACS LA vol index 21.8 16 - 34 mL/m2 SSM CV FUJI PACS LA vol BP A-L 49.449 mL SSM CV FUJI PACS RVIDd 3.2 cm SSM CV FUJ I PACS RVOT VTI 22.862 cm SSM CV FUJ I PACS TV S' minna 21.672 cm/s SSM CV FUJ I PACS TAPSE 2.011 1.7 cm SSM CV FUJ I PACS RVOT pk minna 1.18 m/s SSM CV F UJI PACS RA area 13.686 cm2 SSM CV FUJ I PACS AV mn grad 8 mmHg SSM CV FU JI PACS AV pk grad 20 mmHg SSM CV FU JI PACS AV mn minna 1.23 m/s SSM CV FUJ I PACS AV pk minna 2.22 m/s SSM CV FUJ I PACS AV VTI 39.097 cm SSM CV FUJ I PACS LVOT pk grad 6.607 mmHg SSM CV FUJI PACS LVOT VTI 26.809 cm SSM CV FUJ I PACS AV area cont VTI 2.2 cm2 SSM CV FUJI PACS AV area pk minna 1.9 cm2 SSM C V FUJI PACS AV Doppler minna index pk minna 0.579 SSM CV FUJI PACS AV closure time 0.4 s SSM CV FUJI PACS Dimensionless Index 0.686 SSM CV FUJI PACS MV mn grad 2 mmHg SSM CV FU JI PACS MV pk grad 5 mmHg SSM CV FU JI PACS MV mn minna 0.74 m/s SSM CV [facility] I PACS MV pk minna 117.039 cm/s SSM CV FUJ I PACS MV PHT 79 ms SSM CV FUJ I PACS MV area PHT 2.77 cm2 SSM CV F UJI PACS MV area cont eq 2.92 cm2 SSM CV FUJI PACS MV VTI 29.758 cm SSM CV FUJ I PACS MV decel slope 392.251 cm/s2 SSM C V FUJI PACS TR VTI 72.7 cm SSM CV FUJ I PACS TR pk grad 36 mmHg SSM CV FU JI PACS RVOT mn grad 3 mmHg SSM CV FUJI PACS RVOT pk grad 4 mmHg SSM CV FUJI PACS PV mn grad 3 mmHg SSM CV FU JI PACS PV pk minna 134.164 cm/s SSM CV FUJ I PACS PV pk grad 7 mmHg SSM CV FU JI PACS PV mn minna 80.858 cm/s SSM CV FUJ I PACS Ascending aorta 2.98 cm SSM CV FUJI PACS IVC size 1.4 cm SSM CV FUJ I PACS BSA 2.3844669 m2 SSM CV FUJ I PACS LA ESV A4C MOD Index 20 ml/m2 SSM CV FUJI PACS LA ESV A2C MOD Index 23 ml/m2 SSM CV FUJI PACS Prox Asc Ao Diameter Index 1.402 cm SSM CV FUJI PACS LVIDs index 1.39 1.3 - 2.1 cm/m2 SSM CV FUJI PACS LV LVIDd index 2.22 2.3 - 3.1 cm/m2 SSM CV FUJI PACS LV est EF 65 % SSM CV FUJ I PACS RVSP 39.0 mmHg SSM CV FUJ I PACS RAP 3.0 mmHg SSM CV FUJ I PACS Anatomical Region Laterality Modality Ultrasound Narrative 11/30/2023 9:28 AM CDT Left Ventricle: Left ventricle size is normal. Normal wall thickness. Ventricular mass is normal. Normal systolic function with a visually estimated EF of 65%. Normal wall motion. Normal diastolic function. Tricuspid Valve: Trace regurgitation. The pulmonary artery systolic pressure is mildly elevated. Estimated RVSP is 39.0 mmHg. Left Ventricle Left ventricle size is normal. Normal wall thickness. Ventricular mass is normal. Normal systolic function with a visually estimated EF of 65%. Normal wall motion. Normal diastolic function. Right Ventricle Right ventricle size is normal. Normal systolic function. Left Atrium Left atrium size is normal. Right Atrium Right atrium size is normal. IVC/SVC IVC diameter is less than or equal to 21 mm and decreases greater than 50% during inspiration; therefore the estimated right atrial pressure is normal (~3 mmHg). Mitral Valve Valve structure is normal. Trace regurgitation. No stenosis. Tricuspid Valve Valve structure is normal. Trace regurgitation. The pulmonary artery systolic pressure is mildly elevated. Estimated RVSP is 39.0 mmHg. No stenosis. Aortic Valve Valve structure is trileaflet. No regurgitation. No stenosis. Pulmonic Valve Valve structure is normal. Trace regurgitation. No stenosis. Ascending Aorta Normal sized sinus of Valsalva (aortic root) and ascending aorta. Pericardium No pericardial effusion. Study Details Study quality was good. A complete 2D, color Doppler, spectral Doppler, strain and M-mode echocardiogram was performed. The apical, parasternal, subcostal and suprasternal views were obtained. Patient exhibited sinus rhythm. Procedure Note Nkechi Shukla MD - 11/30/2023 Left Ventricle: Left ventricle size is normal. Normal wall thickness.Ventricular mass is normal. Normal systolic function with a visuallyestimated EF of 65%. Normal wall motion. Normal diastolic function. Tricuspid Valve: Trace regurgitation. The pulmonary artery systolicpressure is mildly elevated. Estimated RVSP is 39.0 mmHg. Darius Wade MD ECHO CUPID * MAMMO RIGHT DIAGNOSTIC W CHERELLE (10/28/2023 1:16 PM CLINICAL NURSING INTERN) Anatomical Region Laterality Modality Breast Right Mammography 10/28/2023 1:14 PM CLINICAL NURSING INTERN Impressions 10/28/2023 1:30 PM CLINICAL NURSING INTERN : 1. Palpable abnormality along the lateral scar in the right breast is consistent with fat necrosis. 2. In the area of palpable concern in the right breast at the 12:00 position and left breast in the 12 to 1:00 position there is no suspicious mass corresponding to this area. Clinical follow-up is recommended RECOMMENDATION: Clinical follow-up of the area of concern. Dr. Shirley discussed the findings with the patient. OVERALL ASSESSMENT: BI-RADS CATEGORY 2: BENIGN. > Interpreting Provider: Jackie Shirley MD on 10/28/2023 1:30 PM Narrative 10/28/2023 1:30 PM CLINICAL NURSING INTERN EXAMINATIONS: 1. RIGHT DIGITAL DIAGNOSTIC MAMMOGRAM AND TOMOSYNTHESIS WITH CAD AND 2. LIMITED RIGHT BREAST ULTRASOUND (COMBINED REPORT) LOCATION: [facility] EXAM DATE: 10/28/2023 HISTORY: 73-year-old woman status post mastectomy for malignancy in the right breast. The patient presents for palpable L abnormality is felt by the breast surgeon. Per the breast surgeons notes there is a 2 cm palpable abnormality along the lateral aspect of the scar in the right breast. This is favored to represent fat necrosis. The note also reports a 4 to 5 cm area of palpable concern along the 12:00 position of the right breast in the 1 to 2:00 position in the left breast. COMPARISON: Mastectomy specimen dated 09/05/2022 07/10/2022 LIMITED RIGHT BREAST ULTRASOUND: Scanning performed scanning performed along the lateral aspect of the scar likely 9:00 position as well as the 12:00 position an area of palpable concern on the right breast. Scanning was also performed along the palpable finding in the left breast at the 1 to 12:00 position FINDINGS: Right breast: In the area of palpable concern along the lateral aspect of the scar around the 9:00 position in the reconstructed breast labeled as lower outer quadrant 9 cm from midline palpable lungs scar, there is a 1.9 x 1.3 x 2.3 cm heterogeneous height for an hypo and anechoic circumscribed mass extending from the scar. This is most consistent with fat necrosis however mammogram or mammography will be performed for further evaluation. In the right breast at the 6:00 position there is a 1.3 x 0.8 x 1.1 cm oil cysts consistent with fat necrosis. In the area of palpable concern along the 12:00 position there is no suspicious mass or architectural distortion a small area of fat necrosis is visualized. There is no definite suspicious mass to correspond to the palpable finding. Left breast: In the area of palpable concern in the left breast along the 12:00 position there is no suspicious mass or architectural distortion. This feels similar to the palpable abnormality in the right breast. No definite mass is visualized. MAMMOGRAM: TECHNIQUE: Diagnostic right mammography was performed. Tomosynthesis (3-D) and reconstructed synthetic 2-D images acquired. A 1 view image was obtained with a palpable marker of the right breast A total of 1 images were obtained. Computer-aided detection (CAD) was utilized. Triangular-shaped marker placed on a palpable abnormality in the right breast. BREAST COMPOSITION: Category A: The breasts are almost entirely fatty. (This is a reconstructed breast as the patient has had mastectomies) FINDINGS: Subjacent to the palpable marker there is a well-defined 2.3 cm fatty oval mass consistent with fat necrosis corresponding to the patient's palpable abnormality and ultrasound findings. Alexa Azar MD MAMMO ORDERABLES * US BREAST BILATERAL LTD (Diagnostic, most commonly ordered) (10/28/2023 1:00 PM CLINICAL NURSING INTERN) Anatomical Region Laterality Modality Breast Bilateral Mammography 10/28/2023 1:14 PM CLINICAL NURSING INTERN Impressions 10/28/2023 1:30 PM CLINICAL NURSING INTERN : 1. Palpable abnormality along the lateral scar in the right breast is consistent with fat necrosis. 2. In the area of palpable concern in the right breast at the 12:00 position and left breast in the 12 to 1:00 position there is no suspicious mass corresponding to this area. Clinical follow-up is recommended RECOMMENDATION: Clinical follow-up of the area of concern. Dr. Shirley discussed the findings with the patient. OVERALL ASSESSMENT: BI-RADS CATEGORY 2: BENIGN. > Interpreting Provider: Jackie Shirley MD on 10/28/2023 1:30 PM Narrative 10/28/2023 1:30 PM CLINICAL NURSING INTERN EXAMINATIONS: 1. RIGHT DIGITAL DIAGNOSTIC MAMMOGRAM AND TOMOSYNTHESIS WITH CAD AND 2. LIMITED RIGHT BREAST ULTRASOUND (COMBINED REPORT) LOCATION: [facility] EXAM DATE: 10/28/2023 HISTORY: 73-year-old woman status post mastectomy for malignancy in the right breast. The patient presents for palpable L abnormality is felt by the breast surgeon. Per the breast surgeons notes there is a 2 cm palpable abnormality along the lateral aspect of the scar in the right breast. This is favored to represent fat necrosis. The note also reports a 4 to 5 cm area of palpable concern along the 12:00 position of the right breast in the 1 to 2:00 position in the left breast. COMPARISON: Mastectomy specimen dated 09/05/2022 07/10/2022 LIMITED RIGHT BREAST ULTRASOUND: Scanning performed scanning performed along the lateral aspect of the scar likely 9:00 position as well as the 12:00 position an area of palpable concern on the right breast. Scanning was also performed along the palpable finding in the left breast at the 1 to 12:00 position FINDINGS: Right breast: In the area of palpable concern along the lateral aspect of the scar around the 9:00 position in the reconstructed breast labeled as lower outer quadrant 9 cm from midline palpable lungs scar, there is a 1.9 x 1.3 x 2.3 cm heterogeneous height for an hypo and anechoic circumscribed mass extending from the scar. This is most consistent with fat necrosis however mammogram or mammography will be performed for further evaluation. In the right breast at the 6:00 position there is a 1.3 x 0.8 x 1.1 cm oil cysts consistent with fat necrosis. In the area of palpable concern along the 12:00 position there is no suspicious mass or architectural distortion a small area of fat necrosis is visualized. There is no definite suspicious mass to correspond to the palpable finding. Left breast: In the area of palpable concern in the left breast along the 12:00 position there is no suspicious mass or architectural distortion. This feels similar to the palpable abnormality in the right breast. No definite mass is visualized. MAMMOGRAM: TECHNIQUE: Diagnostic right mammography was performed. Tomosynthesis (3-D) and reconstructed synthetic 2-D images acquired. A 1 view image was obtained with a palpable marker of the right breast A total of 1 images were obtained. Computer-aided detection (CAD) was utilized. Triangular-shaped marker placed on a palpable abnormality in the right breast. BREAST COMPOSITION: Category A: The breasts are almost entirely fatty. (This is a reconstructed breast as the patient has had mastectomies) FINDINGS: Subjacent to the palpable marker there is a well-defined 2.3 cm fatty oval mass consistent with fat necrosis corresponding to the patient's palpable abnormality and ultrasound findings. Alexa Azar MD US ORDERABLES * ECHO COMPLETE (10/30/2022 1:27 PM CLINICAL NURSING INTERN) Only the most recent of2 resultswithin the time period is included. Anatomical Region Laterality Modality Chest Echo 10/30/2022 12:4 5 PM CLINICAL NURSING INTERN Narrative Procedure Note Taye Menendez MD - 10/30/2022 Darius Wade MD ECHOCARDIOGRAPHY RAD IANT * IR AMNA CATH INSERT (10/21/2022 12:05 PM CLINICAL NURSING INTERN) Anatomical Region Laterality Modality Chest X-Ray Angiograph y 10/21/2022 3:45 PM CLINICAL NURSING INTERN Narrative 10/21/2022 3:47 PM CLINICAL NURSING INTERN This is an Interventional Nephrology procedure performed on 10/21/2022 Paralegal: Klarissa Fraser M.D. Attending: Klarissa Fraser M.D. Finance Accounting Internship: Yuko Us M.D. Procedures performed: 1. Insertion of tunneled central venous catheter with single lumen subcutaneous port 2. Fluoroscopic guidance for central venous catheter procedure. 3. Ultrasound guidance for vascular access with permanent recording. 4. Moderate sedation This patient was referred for placement of a port-a-cath for medications. Following informed consent the patient was taken to the angiography suite and places on the fluoroscopy table. The skin of the right neck and chest was prepared with chlorhexidine and sterile drapes were applied. Under real time ultrasound guidance, the right internal jugular vein was accessed with a micropuncture needle, a clement scale image was recorded and a microfilament wire was advanced to the central veins under fluoroscopic guidance. This allowed the placement of a 5 [place] trocar which in turn allowed the placement of a 0.035 guidewire which was manipulated into the IVC. A site for the port was chosen on the chest wall and anesthetized with lidocaine. A 1 inch incision was made and a subcutaneous pocket was created by blunt dissection. Using a metal tunneling device, the catheter was brought through a subcutaneous tunnel to the venotomy incision and prepared for insertion. A peel-away sheath was inserted over the guidewire and the inner stylet was removed. The catheter was inserted through the sheath which was then removed. The catheter was adjusted for length under fluoroscopy such that the tip was at the junction of the SVC and RA. The port was attached and flushed easily and where locked with heparin and inserted into the subcutaneous pocket. The subcutaneous tissue was approximated with interrupted 3-0 Vicryl and the incision was closed with a running 4-0 Vicryl subcuticular suture. The wound and the venotomy incision were sealed with Dermabond. Moderate sedation on this adult patient was ordered by me, administered intravenously in my presence, and monitored by the procedure nurse as an independent trained observer who was present throughout the procedure. The following parameters were monitored: oxygen saturation, heart rate, blood pressure, and response to care. Intra-service sedation start time was 1126 and end time was 1154 during which I was present. Total physician intra-service sedation time was 28 minutes. For details on pre-moderate sedation and post-moderate sedation patient evaluation, please review the evaluation forms in [facility]. For details on monitored clinical parameters during the intra-service sedation time, please review the procedure nurse documentation in [facility]. I was present for the entire procedure. > Interpreting Provider: Ivonne Fraser MD on 10/21/2022 3:47 PM Procedure Note Teto Fraser MD - 10/21/2022 This is an Interventional Nephrology procedure performed on 10/21/2022 Paralegal: Klarissa Fraser M.D. Attending: Klarissa Fraser M.D. Finance Accounting Internship: Yuko Us M.D. Procedures performed: 1. Insertion of tunneled central venous catheter with single lumen subcutaneous port 2. Fluoroscopic guidance for central venous catheter procedure. 3. Ultrasound guidance for vascular access with permanent recording. 4. Moderate sedation This patient was referred for placement of a port-a-cath formedications. Following informed consent the patient was taken to the angiographysuite and places on the fluoroscopy table. The skin of the right neck andchest was prepared with chlorhexidine and sterile drapes were applied. Underreal time ultrasound guidance, the right internal jugular vein was accessed with a micropuncture needle,a clement scale image was recorded and a microfilament wire was advanced tothe central veins under fluoroscopic guidance. This allowed the placement ofa 5 [place] trocar which in turn allowed the placement of a 0.035 guidewire which was manipulatedinto the IVC. A site for the port was chosen on the chest wall andanesthetized with lidocaine. A 1 inch incision was made and a subcutaneous pocket was created by blunt dissection. Using a metal tunneling device, the catheter was brought through a subcutaneous tunnel to the venotomy incision and prepared for insertion.A peel-away sheath was inserted over the guidewire and the inner styletwas removed. The catheter was inserted through the sheath which was then removed. The catheter was adjusted for length under fluoroscopy such that the tip was at the junction of theSVC and RA. The port was attached and flushed easily and where locked with heparin and inserted into the subcutaneous pocket. The subcutaneous tissue was approximated with interrupted 3-0 Vicryl and the incision was closed witha running 4-0 Vicryl subcuticular suture. The wound and the venotomyincision were sealed with Dermabond. Moderate sedation on this adult patient was ordered by me, administered intravenously in my presence, and monitored by the procedure nurse as an independent trained observer who was present throughout the procedure.The following parameters were monitored: oxygen saturation, heart rate,blood pressure, and response to care. Intra-service sedation start time [id number] and end time was 1154 during which I was present. Total physician intra-service sedation time was 28 minutes. For details on pre-moderate sedation and post-moderate sedation patient evaluation, please reviewthe evaluation forms in [facility]. For details on monitored clinical parameters during the intra-service sedation time, please review the procedurenurse documentation in [facility]. I was present for the entire procedure. > Interpreting Provider: Ivonne Fraser MD on 10/21/2022 3:47 PM Darius Wade MD IR ORDERABLES * (ABNORMAL) PT-INR [facility] (10/21/2022 9:56 AM CLINICAL NURSING INTERN) PT 12.0(L) 12.1 - 14.8 Seconds 10/21/2022 10:53 AM [facility] INR 0.9 See Comment 10/21/2022 10:53 AM [facility] Comment:The suggested therap eutic range for standard coumadin (warfarin) therapy is an INR of 2.0-3.0. For high-risk patients (Mechanical Mitral Valve Prosthesis, etc.), the suggested prophylactic therapeutic range is an INR of 2.5-3.5. Blood BLOOD SPECIMEN / Unknown Venipuncture / Unknown 10/21/2022 9:56 AM CLINICAL NURSING INTERN 10/21/2022 10:27 AM CLINICAL NURSING INTERN Darius Wade MD LAB - COAGULATION OR DERABLES Performing Organization Address [facility] Co de Phone Number [address] [id number] [phone] * CBC W/O DIFFERENTIAL (10/21/2022 9:56 AM [facility]) WBC 6.1 3.5 - 10.5 10 3/uL 10/21/2022 10:32 AM [facility] RBC 4.28 3.80 - 5.20 10 6/uL 10/21/2022 10:32 AM [facility] Hemoglobin 12.3 12.0 - 15.6 g/dL 10/21/2022 10:32 AM [facility] Hematocrit 38.8 35.0 - 45.0 % 10/21/2022 10:32 AM [facility] MCV 90.7 80.7 - 98.3 fL 10/21/2022 10:32 AM [facility] MCH 28.7 26.7 - 34.0 pg 10/21/2022 10:32 AM [facility] MCHC 31.7 30.8 - 35.9 g/dL 10/21/2022 10:32 AM [facility] RDW-SD 42.7 36.0 - 50.0 fL 10/21/2022 10:32 AM [facility] RDW-CV 12.9 11.2 - 14.8 % 10/21/2022 10:32 AM [facility] Platelet Count 260 150 - 400 10 3/uL 10/21/2022 10:32 AM [facility] MPV 10.7 9.4 - 12.9 fL 10/21/2022 10:32 AM [facility] nRBC Absolute 0.00 0 10 3/uL 10/21/2022 10:32 AM [facility] nRBC Auto 0.0 0 /100 WBC 10/21/2022 10:32 AM [facility] Blood BLOOD SPECIMEN / Unknown Venipuncture / Unknown 10/21/2022 9:56 AM CLINICAL NURSING INTERN 10/21/2022 10:27 AM [facility] Darius Wade MD LAB - HEMATOLOGY ORD ERABLES Performing Organization Address [facility] Co de Phone Number [address] [phone] [phone] * (ABNORMAL) BASIC METABOLIC PANEL (CALCIUM TOTAL) (10/21/2022 9:56 AM [facility]) Only the most recent of2 resultswithin the time period is included. BUN 14 7 - 26 mg/dL 10/21/2022 10:57 AM [facility] Creatinine 0.95 0.56 - 0.96 mg/dL 10/21/2022 10:57 AM [facility] Sodium 145 136 - 145 mmol/L 10/21/2022 10:57 AM [facility] Potassium 3.8 3.5 - 4.5 mmol/L 10/21/2022 10:57 AM [facility] Chloride 106 98 - 107 mmol/L 10/21/2022 10:57 AM [facility] CO2 26 22 - 29 mmol/L 10/21/2022 10:57 AM [facility] Glucose 121(H) 70 - 115 mg/dL 10/21/2022 10:57 AM [facility] Calcium 9.4 8.4 - 10.2 mg/dL 10/21/2022 10:57 AM [facility] Anion Gap 17 8 - 18 10/21/2022 10:57 AM [facility] BUN/Creatinine Ratio 15 7 - 23 10/21/2022 10:57 AM [facility] Osmolality Calculated 302(H) 270 - 300 mOsm/kg 10/21/2022 10:57 AM [facility] eGFR by CKD-EPI 64(L) >=90 mL/min/1.7 3 m2 10/21/2022 10:57 AM [facility] Blood BLOOD SPECIMEN / Unknown Venipuncture / Unknown 10/21/2022 9:56 AM CLINICAL NURSING INTERN 10/21/2022 10:27 AM [facility] Darius Wade MD LAB - CHEMISTRY ANTOINETTE [facility] [address] [place] [address], [facility] [phone] * IV PLACEMENT PERFORMABLE (09/05/2022 3:23 PM CLINICAL NURSING INTERN) Narrative Dandre Manzanares DO - 09/05/2022 3:23 PM CLINICAL NURSING INTERN Dandre Manzanares DO 09/05/2022 3:24 PM Peripheral IV Line Placement: Patient Location: OR Procedure: IV start (12354). Procedure Section: Skin Prep: alcohol. Orientation: right Location: hand Catheter Gauge: 18 Number of Attempts: 1. Procedure Tolerance: no immediate complications. Procedure Start Time: 09/05/2022 12:40 PM. Staff Section Anesthesia Provider: Dandre Manzanares DO Performed the procedure Manjula Butt MD GENERAL ANESTHESIA O RDERABLES * PATHOLOGY TISSUE (09/05/2022 2:21 PM CLINICAL NURSING INTERN) Only the most recent of3 resultswithin the time period is included. Case Report Surgical Pathology Report Case: [id number] Authorizing Provider: Alexa Azar MD Collected: 09/05/2022 02:21 PM Ordering Location: [facility] Received: 09/05/2022 03:30 PM Pathologist: Linh Parkinson MD Specimens: A) - Breast Mast Smpl, RIGHT MASTECTOMY, LONG STITCH LATERAL, SHORT STITCH SUPERIOR B) - Dime Box Lymph Node, RIGHT AXILLARY SENTINEL LYMPH NODE C) - Skin, Other, RIGHT BREAST SKIN D) - Skin, Other, LEFT BREAST SKIN E) - Breast Mast Smpl, LEFT MASTECTOMY, LONG STITCH LATERAL, SHORT STITCH SUPERIOR 09/10/2022 8:08 AM [facility] Final Diagnosis Breast, right, simple mastectomy (A): - Multifocal invasive ductal carcinoma, poorly differentiated/Nottin gham grade 3 (tub-3, nuc-3, tonia-2) - Four microscopic foci, largest contiguous focus 7 mm, pT1b - Ductal carcinoma in situ, high nuclear grade, solid type with necrosis and calcifications - Two biopsy sites identified - Surgical margins negative for carcinoma: greater than 2 mm to all margins Lymph nodes, right axillary sentinel, excision (B): - Two lymph nodes, negative for malignancy (0/2) Skin, right breast, excision (C): - Benign skin and subcutaneous tissue Skin, left breast, excision (D): - Benign skin and subcutaneous tissue Breast, left, simple mastectomy (E): - Papilloma with atypical ductal hyperplasia, 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 The largest contiguous focus of invasive carcinoma is 7mm (microscopic measurement slide A8). The sampling of upper inner quadrant also shows 2 biopsy sites. The papilloma seen in the left breast (E) was grossly located at least 5 cm medial to the biopsy site and therefore likely does not represent the asymmetry seen on imaging. No lesions were microscopically identified adjacent to the biopsy site. 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 Operative procedure/findings: Operative procedure: 09/10/2022 8:08 AM [facility] Gross Description The requisition and specimen(s) are identified with the patient's name, Betsy Perez. Received fresh and subsequently placed in formalin, specimen A , is 976 g, 20 cm superior to inferior, 23 cm medial to lateral, and 4.2 cm anterior to posterior oriented simple mastectomy with an anterior merino skin ellipse 10 x 5.2 cm. The skin surface has a 1.5 cm everted nipple present centrally. The skin is oriented with a short stitch designating superior and a long stitch designating lateral. The specimen is inked as follows: superior- blue, inferior- green, medial- red, lateral- orange, posterior/deep- black, and anterior/superficial- yellow. Sectioning shows two calcified lesions in the upper inner quadrant, now designated as lesion 1 and 2. Lesion 1 is a diffuse cluster of calcifications spanning 3.2 x 1.3 x 0.7 cm, and is 1.0 cm from posterior, 3.1 cm from medial, and 3.0 cm from anterior, and greater than 5 cm from all other margins. Sectioning of this lesion shows a coil clip. Additionally it is 4.1 cm posterior from lesion 2. Lesion 2 is a single 0.5 x 0.4 x 0.4 cm calcification that is 1.5 cm from anterior 4.3 cm from superior, 4.9 cm from posterior, and greater than 5 cm from all other margins. The remaining breast parenchyma is yellow fatty with interspersed white fibrous tissue. Eye Surgeon sections are submitted as follows: A1 through A8-lesion 1 submitted medial to lateral (clip in A3), A9/E79-tfujru 2, A11 through P23-yuzxa inner quadrant sampling, D64-lzgmg inner quadrant, G15-gtglu outer quadrant, L35-zbogd outer quadrant, F67-qxgp and nipple Specimen processing times on 09/05/2022 are as follows: Time of excision: 1421 Time specimen is cut and placed in formalin: 1507 Total formalin fixation time: 48 hours, 59 minutes Total cold ischemia time: 46 minutes Received in formalin, specimen B , are 2 fragments of fatty adipose tissue 2.1 x 1.3 x 0.9 cm and 2.1 x 2.0 x 1.0 cm each containing 1 embedded lymph node. Smaller lymph node is 1.2 x 1.0 x 0.5 cm and the larger is 1.5 x 1.2 x 0.6 cm. The lymph nodes are submitted entirely as follows: B1-smaller lymph node, B2-larger lymph node. Received in formalin, specimen C , is a 22 x 6.3 cm merino wrinkled skin ellipse excised to a depth of 2.1 cm. Sectioning shows white unremarkable skin with underlying yellow lobulated adipose tissue. No masses or lesions are identified. A manufacturers representative section is submitted into cassette C1. Received in formalin, specimen D , are multiple fragments of merino wrinkled skin and underlying subcutaneous tissue 13.1 x 8.2 x 3.0 cm in aggregate. Sectioning shows white unremarkable skin with underlying yellow lobulated adipose tissue. No masses or lesions are identified. A manufacturers representative section is submitted into cassette D1. Received fresh and subsequently placed in formalin, specimen E , is a 140 g, 18.5 cm superior to inferior, 22 cm medial to lateral, 5.0 cm anterior to posterior oriented simple mastectomy with an anterior 10 skin ellipse 7.5 x 4.5 cm. The skin surface has a everted 1.2 cm greater nipple present centrally. The skin is oriented with a short stitch designating superior and a long stitch designating lateral. The specimen is inked as follows: superior- blue, inferior- green, medial- red, lateral- orange, posterior/deep- black, and anterior/superficial- yellow. Sectioning shows a 1.6 x 1.1 x 1.0 cm white fibrous and cystic lesion with a coil clip present at the lower outer quadrant, 2.0 cm from anterior and 2.5 cm from the inferior margins. Additionally, in the central upper breast, there is a single clear-white area of cystic change. The remaining breast parenchyma is comprised of yellow adipose tissue with finely interspersed white parenchyma. Eye Surgeon sections are submitted as follows: E1 through E3-previously biopsied lesion, E4-closest anterior and inferior margin, A5-cystic area central breast, E6-upper outer quadrant, 7-outer lower quadrant E8-lower inner quadrant, A9-upper inner quadrant E 10-nipple. CP Specimen processing times on 09/05/2022 are as follows: Time of excision: 1554 Time specimen is cut and placed in formalin: 1654 Total formalin fixation time: 47 hours, 12 minutes Total cold ischemia time: 1 hour 09/10/2022 8:08 AM [facility] Disclaimer The performance characteristics of all immunohistochemical and indirect immunofluorescence stains (if any) cited in this report were determined by the Histopathology Laboratory of [facility]. Some of these tests were developed by our own laboratory and have not been cleared or approved by the US Food and Drug Administration. The FDA does not require this test to go through premarket FDA review. These tests are used for clinical purposes. They should not be regarded as investigational or for research. This laboratory is certified under the Clinical Laboratory Improvement Amendments (CLIA) as qualified to perform high complexity clinical laboratory testing. This case has been personally reviewed and interpreted by the attending (teaching) pathologist. 09/10/2022 8:08 AM [facility] Synoptic Report INVASIVE CARCINOMA OF THE BREAST: Resection INVASIVE CARCINOMA OF THE BREAST: COMPLETE EXCISION - A, B, E 8th Edition - Protocol posted: 03/12/2022 SPECIMEN Procedure: Total mastectomy Specimen Laterality: Right TUMOR Tumor Site: Upper inner quadrant Histologic Type: Invasive carcinoma of no special type (ductal) Histologic Grade (Novi Histologic Score): Glandular (Acinar) / Tubular Differentiation: Score 3 Nuclear Pleomorphism: Score 3 Mitotic Rate: Score 2 Overall Grade: Grade 3 (scores of 8 or 9) Tumor Size: Greatest dimension of largest invasive focus (Millimeters): 7 mm Tumor Focality: Multiple foci of invasive carcinoma Number of Foci: 4 Ductal Carcinoma In Situ (DCIS): Present Size (Extent) of DCIS: Number of Blocks with DCIS: 3 Number of Blocks Examined: 20 Architectural Patterns: Comedo Architectural Patterns: Solid Nuclear Grade: Grade III (high) Necrosis: Present, central (expansive comedo necrosis) Lymphovascular Invasion: Not identified Microcalcifications: Present in DCIS Treatment Effect in the Breast: No known presurgical therapy MARGINS Margin Status for Invasive Carcinoma: All margins negative for invasive carcinoma Distance from Invasive Carcinoma to Closest Margin: 7 mm Closest Margin(s) to Invasive Carcinoma: Posterior Margin Status for DCIS: All margins negative for DCIS Distance from DCIS to Closest Margin: Greater than: 2 mm REGIONAL LYMPH NODES Regional Lymph Node Status: : All regional lymph nodes negative for tumor Total Number of Lymph Nodes Examined (sentinel and non-sentinel): 2 Number of Dime Box Nodes Examined: 2 PATHOLOGIC STAGE CLASSIFICATION (pTNM, AJCC 8th Edition) Reporting of pT, pN, and (when applicable) pM categories is based on information available to the pathologist at the time the report is issued. As per the AJCC (Chapter 1, 8th Ed.) it is the managing physician's responsibility to establish the final pathologic stage based upon all pertinent information, including but potentially not limited to this pathology report. TNM Descriptors: m (multiple foci of invasive carcinoma) pT Category: pT1b Regional Lymph Nodes Modifier: (sn): Dime Box node(s) evaluated. pN Category: pN0 Breast Biomarker Testing Performed on Previous Biopsy: Estrogen Receptor (ER) Status: Positive (greater than 10% of cells demonstrate nuclear positivity) Percentage of Cells with Nuclear Positivity: 91-100% Breast Biomarker Testing Performed on Previous Biopsy: Progesterone Receptor (PgR) Status: Positive Percentage of Cells with Nuclear Positivity: 61-70% Breast Biomarker Testing Performed on Previous Biopsy: HER2 (by immunohistochemistry) : Positive (Score 3+) Testing Performed on 09/10/2022 8:08 AM CLINICAL NURSING INTERN [facility] Embedded Images 09/10/2022 8:08 AM CLINICAL NURSING INTERN [facility] Resection with Tumor SIMPLE MASTECTOMY / Unknown 09/05/2022 2:21 PM CLINICAL NURSING INTERN 09/05/2022 3:30 PM CLINICAL NURSING INTERN Comment:Pre-op diagnosis: Malignant neoplasm of upper inner quadrant of right breast in female, estrogen receptor positive Resection with Tumor SPECIMEN FROM SENTINEL LYMPH NODE / Unknown 09/05/2022 2:37 PM CLINICAL NURSING INTERN 09/08/2022 7:50 AM CLINICAL NURSING INTERN Comment:Pre-op diagnosis: Malignant neoplasm of upper inner quadrant of right breast in female, estrogen receptor positive Resection with Tumor (Skin, Other) 09/05/2022 3:22 PM CLINICAL NURSING INTERN 09/08/2022 7:50 AM CLINICAL NURSING INTERN Comment:Pre-op diagnosis: Malignant neoplasm of upper inner quadrant of right breast in female, estrogen receptor positive Resection with Tumor (Skin, Other) 09/05/2022 3:22 PM CLINICAL NURSING INTERN 09/08/2022 7:50 AM CLINICAL NURSING INTERN Comment:Pre-op diagnosis: Malignant neoplasm of upper inner quadrant of right breast in female, estrogen receptor positive Resection with Tumor SIMPLE MASTECTOMY / Unknown 09/05/2022 3:54 PM CLINICAL NURSING INTERN 09/05/2022 5:20 PM CLINICAL NURSING INTERN Comment:Pre-op diagnosis: Malignant neoplasm of upper inner quadrant of right breast in female, estrogen receptor positive Alexa Azar MD LAB - PATHOLOGY/CYT OLOGY ORDERABLES [facility] [address] [place], [place] [id number] [place] [address] * MAMMO BREAST RIGHT SPECIMEN (09/05/2022 2:07 PM CLINICAL NURSING INTERN) Anatomical Region Laterality Modality Breast Right Mammography 09/05/2022 3:25 PM CLINICAL NURSING INTERN Impressions 09/05/2022 2:07 PM CLINICAL NURSING INTERN IMPRESSION: The ribbon and coil shaped clips are identified within the right mastectomy specimen. > Interpreting Provider: Quyen Kessler MD on 09/05/2022 3:27 PM Narrative 09/05/2022 2:07 PM CLINICAL NURSING INTERN EXAM: SPECIMEN RADIOGRAPH FROM THE RIGHT BREAST. DATE OF EXAM: 09/05/2022 2:07 PM HISTORY: Newly diagnosed high-grade ductal carcinoma in situ in the right breast x2. COMPARISON: Postclip mammogram 07/22/2022. TECHNIQUE: 1 digital images obtained of the surgical specimen. FINDINGS: The ribbon and coil shaped clips are identified within the right mastectomy specimen. Procedure Note Quyen Kessler MD - 09/05/2022 EXAM: SPECIMEN RADIOGRAPH FROM THE RIGHT BREAST. DATE OF EXAM: 09/05/2022 2:07 PM HISTORY: Newly diagnosed high-grade ductal carcinoma in situ in theright breast x2. COMPARISON: Postclip mammogram 07/22/2022. TECHNIQUE: 1 digital images obtained of the surgical specimen. FINDINGS: The ribbon and coil shaped clips are identified within theright mastectomy specimen. IMPRESSION: The ribbon and coil shaped clips are identified within the right mastectomy specimen. > Interpreting Provider: Quyen Kessler MD on 09/05/2022 3:27 PM Alexa Azar MD MAMMO ORDERABLES * ETT LINE PERFORMABLE (09/05/2022 12:38 PM CLINICAL NURSING INTERN) Narrative Cr Mckeon DO - 09/05/2022 12:38 PM CLINICAL NURSING INTERN Cr Mckeon DO 09/05/2022 12:52 PM Endotracheal Tube Placement: Patient Location: OR. Intubation Event Date/Time: 09/05/2022 12:38 PM Procedure: intubation (24750). Procedure Section: Sedation: under general anesthesia. Indications for Airway Management: anesthesia Procedure pretreatments used? No Induction: standard IV Patient Position: supine Mask Ventilation: easy. Blade Type: Jo Blade Size: 3 Laryngoscopy View: grade 1 (full cords) Intubation Adjuncts: stylet Tube: endotracheal tube Placement: oral Tube type: cuff - inflated Tube Size (MM): 7 Depth of Insertion (CM): 22 Measured From: lips Cuff volume (mL): 6 Cuff Inflated With: air Number of Attempts: 1. Placement Verified By: direct visualization, bilateral breath sounds, chest auscultation and CO2 monitor CXR Findings: ETT in proper place. Tube secured with: adhesive tape. Dentition unchanged? Yes Difficult Airway? No. Procedure Start Time: 09/05/2022 12:38 PM. Staff Section Provider #1: Cr Mckeon DO, Performed the procedure. Manjula Butt MD GENERAL ANESTHESIA O RDERABLES * NM SENTINEL NODE INJECTION (09/05/2022 11:14 AM CLINICAL NURSING INTERN) Anatomical Region Laterality Modality Breast, Upper Extremity, Other N uclear Medicine 09/05/2022 1:19 PM CLINICAL NURSING INTERN Impressions 09/05/2022 2:54 PM CLINICAL NURSING INTERN Impression: Successful placement of 4 periareolar injections in the right breast. > Dictated by Sharon Brito MD (Director Ambulatory) 09/05/2022 1:22 PM ITish DO have personally reviewed and interpreted this examination/study. > Interpreting Provider: Tish Scott DO on 09/05/2022 2:54 PM Narrative 09/05/2022 2:54 PM CLINICAL NURSING INTERN PROCEDURE: NM SENTINEL NODE INJECTION, DATE/TIME OF EXAM: 09/05/2022 11:15 AM, LOCATION [facility] INDICATION: C50.211: Malignant neoplasm of upper-inner quadrant of right breast in female, estrogen receptor positive (CMS/HCC) Z17.0: Malignant neoplasm of upper-inner quadrant of right breast in female, estrogen receptor positive (CMS/HCC) History: 71 year old female presented with ductal carcinoma of upper quadrant of right breast which confirmed by biopsy . Referred today for lymphoscintigraphy. Patient's BMI is 35.8 kg/m. Technique: The patient was injected with 4 separate periareolar intradermal injections in the right breast for a total of 1.0 mCi of Tc-99m tilmanocept (Lymphoseek). Findings: The risks and benefits of the lymphoscintigraphy injection were discussed with the patient and informed consent was obtained. The skin of the right breast was cleansed with ChloraPrep. 4 periareolar injections were performed. The patient tolerated the injections well without immediate complication. The skin was covered with a bandage. Procedure Note Tish Scott DO - 09/05/2022 PROCEDURE: NM SENTINEL NODE INJECTION, DATE/TIME OF EXAM: 09/05/2022 11:15 AM, LOCATION [facility] INDICATION: C50.211: Malignant neoplasm of upper-inner quadrant of right breast in female, estrogen receptor positive (CMS/HCC) Z17.0: Malignant neoplasm of upper-inner quadrant of right breast in female, estrogen receptor positive (CMS/HCC) History: 71 year old female presented with ductal carcinoma of upper quadrant of right breast which confirmed by biopsy . Referred today for lymphoscintigraphy. Patient's BMI is 35.8 kg/m. Technique: The patient was injected with 4 separate periareolarintradermal injections in the right breast for a total of 1.0 mCi of Tc-99mtilmanocept (Lymphoseek). Findings: The risks and benefits of the lymphoscintigraphy injection werediscussed with the patient and informed consent was obtained. The skin of theright breast was cleansed with ChloraPrep. 4 periareolar injections were performed. The patient tolerated the injections well without immediate complication. The skin was covered with a bandage. Impression: Successful placement of 4 periareolar injections in the right breast. > Dictated by Sharon Brito MD (Director Ambulatory) 09/05/2022 1:22PM Tish Hatfield DO have personally reviewed and interpreted this examination/study. > Interpreting Provider: Tish Scott DO on 09/05/2022 2:54 PM Alexa Azar MD NM ORDERABLES * TYPE + SCREEN PANEL (09/05/2022 10:03 AM CLINICAL NURSING INTERN) Antibody Screen NEG 11:10 AM CLINICAL NURSING INTERN [facility] ABO Rh A POS 09/05/2022 11:10 AM CLINICAL NURSING INTERN [facility] Blood Bank BLOOD SPECIMEN / Unknown Venipuncture / Unknown 09/05/2022 10:03 AM CLINICAL NURSING INTERN 09/05/2022 10:14 AM CLINICAL NURSING INTERN Provider Unknown LAB - BLOOD BANK ORD ERABLES [facility] [address] [place] [address], [facility] [phone] * XR CHEST 2VW (07/30/2022 12:51 PM CLINICAL NURSING INTERN) Anatomical Region Laterality Modality Chest Radiographic Mahsa ging 07/30/2022 1:18 PM CLINICAL NURSING INTERN Narrative 07/30/2022 5:01 PM CLINICAL NURSING INTERN PROCEDURE: XR CHEST 2VW, DATE/TIME OF EXAM: 07/30/2022 12:51 PM, LOCATION [facility] INDICATION: C50.211: Malignant neoplasm of upper-inner quadrant of right breast in female, estrogen receptor positive (CMS/HCC) Z17.0: Malignant neoplasm of upper-inner quadrant of right breast in female, estrogen receptor positive (CMS/HCC) Z01.818: Pre-op evaluation COMPARISON: None. FINDINGS/IMPRESSION: There is no focal consolidation, pleural effusion, or pneumothorax. The cardiomediastinal silhouette is normal. Degenerative changes are noted in the thoracic spine. Report dictated by Skinny Castro MD, MD (vice president of development). IJake have personally reviewed and interpreted this examination/study. > Interpreting Provider: Jake Lozada on 07/30/2022 5:01 PM Procedure Note Jake Lozada MD - 07/30/2022 PROCEDURE: XR CHEST 2VW, DATE/TIME OF EXAM: 07/30/2022 12:51 PM, LOCATION [facility] INDICATION: C50.211: Malignant neoplasm of upper-inner quadrant of right breast in female, estrogen receptor positive (CMS/HCC) Z17.0: Malignant neoplasm of upper-inner quadrant of right breast in female, estrogen receptor positive (CMS/HCC) Z01.818: Pre-op evaluation COMPARISON: None. FINDINGS/IMPRESSION: There is no focal consolidation, pleural effusion, or pneumothorax. The cardiomediastinal silhouette is normal. Degenerative changes are notedin the thoracic spine. Report dictated by Skinny Castro MD, MD (vice president of development). Jake Hatfield have personally reviewed and interpreted this examination/study. > Interpreting Provider: Jake Lozada on 07/30/2022 5:01 PM Larissa Wooten MD DIAGNOSTIC IMAGING O RDERABLES * MAMMO LEFT POST CLIP OR WIRE (07/21/2022 10:25 AM CDT) Anatomical Region Laterality Modality Breast Left Mammography 07/21/2022 1:17 PM CDT Addenda Addendum by Quyen Kessler MD on 07/22/2022 4:32 PM CDT ADDENDUM: PATHOLOGY RESULTS Pathology report per Dr. Linh Parkinson demonstrates benign breast tissue with focal usual ductal hyperplasia. There is no atypia or malignancy. This is a benign lesion The pathology report is felt discordant with the imaging findings. Patient will follow-up with Dr. Azar regarding the known right-sided breast cancer. Consider mag seed placement adjacent to the left breast biopsy clip, followed by surgical excision, at the time of her right breast surgery for known the known right breast malignancy. The pathology findings and recommendations were discussed with Dr. Azar at 4:20 PM on 07/22/2022. Dr. Azar will notify the patient of the biopsy findings and recommendations. Results were also provided to the referring physician via [employer]. > Interpreting Provider: Quyen Kessler MD on 07/22/2022 4:30 PM Impressions 07/21/2022 1:38 PM CDT IMPRESSION: 1. Technically successful, uncomplicated stereotactic (3D) guided vacuum-assisted core biopsy performed of an asymmetry in the lateral aspect of the left breast. 2.A coil-shaped clip placed at the biopsy site. 3. Pathology results are pending. Patient will receive her pathology results from and follow up with Dr. Azar. An addendum will be rendered to this report when the pathology results are made available. Quyen Hatfield MD have personally reviewed and interpreted this examination/study. > Interpreting Provider: Quyen Kessler MD on 07/21/2022 1:38 PM Narrative 07/21/2022 1:38 PM CDT EXAMS: 1. STEREOTACTIC LEFT BREAST BIOPSY WITH PRONE AFFIRM (3D) BIOPSY AND 2. POST BIOPSY DIGITAL MAMMOGRAM LEFT BREAST (COMBINED REPORT) DATE OF EXAM: 07/21/2022 10:25 AM CLINICAL INFORMATION: Asymmetry in the lateral aspect of the left breast. COMPARISON: Prior breast imaging studies from [facility] dated 07/17/2022. TECHNIQUE AND FINDINGS: Preprocedure images were reviewed. The procedure and its risks and benefits were discussed with the patient, including, but not limited to, bleeding, infection, allergy, and a nondiagnostic specimen. Written and verbal informed consent was obtained and documented. After confirming the correct breast for biopsy, the breast was marked with a marking pen. The patient was then placed in a prone position on the stereotactic biopsy table. Prior to the procedure, a hospital timeout procedure was performed, including verification of the laterality of the breast for biopsy. 3D tomosynthesis images were obtained for localization of the focal asymmetry in the lateral aspect, 9 cm from the nipple on the CC view. This was done via a lateral approach. The breast was prepped and draped in a sterile fashion. Local anesthesia was given with 4 cc of 1% Lidocaine buffered with Sodium Bicarbonate within the skin and deeper anesthesia with 27 cc of 0.5 % Lidocaine with Epinephrine, buffered withSodium Bicarbonate. A small 5 mm skin incision was made with a #11 scalpel blade, and through it a 9-gauge Eviva vacuum-assisted incisional core biopsy needle was inserted to the depth of the lesion through an introducer. Confirmatory images were obtained, prior to firing the biopsy device, demonstrating good position of the biopsy needle. Several biopsy samples were obtained through the area of concern. The tissue samples were placed in formalin and delivered to the pathology department by the technologist, following the procedure. A coil-shaped tissue marker clip was placed at the biopsy site. Hemostasis was achieved, and the small wound was closed with Exofin. Estimated blood loss: Minimal Mammogram: A two-view left mammogram with tomosynthesis (3D) and reconstructed C-view( 2D) images with CC and true lateral projections was obtained to check clip placement. Breast Composition: Category A: The breasts are almost entirely fatty. The clip is in good position at the biopsy site. Assessment: POST-PROCEDURE MAMMOGRAM FOR MARKER PLACEMENT. The patient tolerated the procedures well, with no immediate post biopsy complications. The patient was given verbal, as well as written post-procedure instructions (including Exofin instructions) and was released from the department in good condition. The attending physician, Quyen Kessler MD, was present for and supervised the entire procedure. Procedure Note Quyen Kessler MD - 07/21/2022 EXAMS: 1. STEREOTACTIC LEFT BREAST BIOPSY WITH PRONE AFFIRM (3D) BIOPSY AND 2. POST BIOPSY DIGITAL MAMMOGRAM LEFT BREAST (COMBINED REPORT) DATE OF EXAM: 07/21/2022 10:25 AM CLINICAL INFORMATION: Asymmetry in the lateral aspect of the leftbreast. COM[facility]: [facility] TECHNIQUE AND FINDINGS: Preprocedure images were reviewed. The procedure and its risks and benefits were discussed with the patient, including,but not limited to, bleeding, infection, allergy, and a nondiagnosticspecimen. Written and verbal informed consent was obtained and documented. After confirming the correct breast for biopsy, the breast was markedwith a marking pen. The patient was then placed in a prone position on the stereotactic biopsy table. Prior to the procedure, a hospital timeout procedure was performed, including verification of the laterality of the breast for biopsy. 3D tomosynthesis images were obtained for localization of the focal asymmetry in the lateral aspect, 9 cm from the nipple on the CC view.This was done via a lateral approach. The breast was prepped and draped in a sterile fashion. Localanesthesia was given with 4 cc of 1% Lidocaine buffered with Sodium Bicarbonate within the skin and deeper anesthesia with 27 cc of 0.5 % Lidocaine with Epinephrine, buffered withSodium Bicarbonate. A small 5 mm skinincision was made with a #11 scalpel blade, and through it a 9-gauge Eviva vacuum-assisted incisional core biopsy needle was inserted to the depthof the lesion through an introducer. Confirmatory images were obtained,prior to firing the biopsy device, demonstrating good position of the biopsy needle. Several biopsy samples were obtained through the area of concern. The tissue samples were placed in formalin and delivered to thepathology department by the technologist, following the procedure. A coil-shaped tissue marker clip was placed at the biopsy site. Hemostasis was achieved, and the small wound was closed with Exofin. Estimated blood loss: Minimal Mammogram: A two-view left mammogram with tomosynthesis (3D) and reconstructed C-view( 2D) images with CC and true lateral projectionswas obtained to check clip placement. Breast Composition: Category A: The breasts are almost entirely fatty. The clip is in good position at the biopsy site. Assessment: POST-PROCEDURE MAMMOGRAM FOR MARKER PLACEMENT. The patient tolerated the procedures well, with no immediate post biopsy complications. The patient was given verbal, as well as written post-procedure instructions (including Exofin instructions) and was released from the department in good condition. The attending physician, Quyen Kessler MD, was present for andsupervised the entire procedure. IMPRESSION: 1. Technically successful, uncomplicated stereotactic (3D) guided vacuum-assisted core biopsy performed of an asymmetry in the lateralaspect of the left breast. 2.A coil-shaped clip placed at the biopsy site. 3. Pathology results are pending. Patient will receive her pathology results from and follow up with Dr. Azar. An addendum will berendered to this report when the pathology results are made available. IQuyen MD have personally reviewed and interpreted this examination/study. > Interpreting Provider: Quyen Kessler MD on 07/21/2022 1:38 PM Alexa Azar MD MAMMO ORDERABLES * MAMMO STEREOTACTIC LEFT BIOPSY (07/21/2022 10:08 AM CDT) Anatomical Region Laterality Modality Breast Left Mammography 07/21/2022 1:17 PM CDT Addenda Addendum by Quyen Kessler MD on 07/22/2022 4:32 PM CDT ADDENDUM: PATHOLOGY RESULTS Pathology report per Dr. Linh Parkinson demonstrates benign breast tissue with focal usual ductal hyperplasia. There is no atypia or malignancy. This is a benign lesion The pathology report is felt discordant with the imaging findings. Patient will follow-up with Dr. Azar regarding the known right-sided breast cancer. Consider mag seed placement adjacent to the left breast biopsy clip, followed by surgical excision, at the time of her right breast surgery for known the known right breast malignancy. The pathology findings and recommendations were discussed with Dr. Azar at 4:20 PM on 07/22/2022. Dr. Azar will notify the patient of the biopsy findings and recommendations. Results were also provided to the referring physician via [employer]. > Interpreting Provider: Quyen Kessler MD on 07/22/2022 4:30 PM Impressions 07/21/2022 1:38 PM CDT : 1. Technically successful, uncomplicated stereotactic (3D) guided vacuum-assisted core biopsy performed of an asymmetry in the lateral aspect of the left breast. 2.A coil-shaped clip placed at the biopsy site. 3. Pathology results are pending. Patient will receive her pathology results from and follow up with Dr. Azar. An addendum will be rendered to this report when the pathology results are made available. I, Quyen Kessler MD have personally reviewed and interpreted this examination/study. > Interpreting Provider: Quyen Kessler MD on 07/21/2022 1:38 PM Narrative 07/21/2022 1:38 PM CDT EXAMS: 1. STEREOTACTIC LEFT BREAST BIOPSY WITH PRONE AFFIRM (3D) BIOPSY AND 2. POST BIOPSY DIGITAL MAMMOGRAM LEFT BREAST (COMBINED REPORT) DATE OF EXAM: 07/21/2022 10:25 AM CLINICAL INFORMATION: Asymmetry in the lateral aspect of the left breast. COMPARISON: Prior breast imaging studies from [facility] dated 07/17/2022. TECHNIQUE AND FINDINGS: Preprocedure images were reviewed. The procedure and its risks and benefits were discussed with the patient, including, but not limited to, bleeding, infection, allergy, and a nondiagnostic specimen. Written and verbal informed consent was obtained and documented. After confirming the correct breast for biopsy, the breast was marked with a marking pen. The patient was then placed in a prone position on the stereotactic biopsy table. Prior to the procedure, a hospital timeout procedure was performed, including verification of the laterality of the breast for biopsy. 3D tomosynthesis images were obtained for localization of the focal asymmetry in the lateral aspect, 9 cm from the nipple on the CC view. This was done via a lateral approach. The breast was prepped and draped in a sterile fashion. Local anesthesia was given with 4 cc of 1% Lidocaine buffered with Sodium Bicarbonate within the skin and deeper anesthesia with 27 cc of 0.5 % Lidocaine with Epinephrine, buffered withSodium Bicarbonate. A small 5 mm skin incision was made with a #11 scalpel blade, and through it a 9-gauge Eviva vacuum-assisted incisional core biopsy needle was inserted to the depth of the lesion through an introducer. Confirmatory images were obtained, prior to firing the biopsy device, demonstrating good position of the biopsy needle. Several biopsy samples were obtained through the area of concern. The tissue samples were placed in formalin and delivered to the pathology department by the technologist, following the procedure. A coil-shaped tissue marker clip was placed at the biopsy site. Hemostasis was achieved, and the small wound was closed with Exofin. Estimated blood loss: Minimal Mammogram: A two-view left mammogram with tomosynthesis (3D) and reconstructed C-view( 2D) images with CC and true lateral projections was obtained to check clip placement. Breast Composition: Category A: The breasts are almost entirely fatty. The clip is in good position at the biopsy site. Assessment: POST-PROCEDURE MAMMOGRAM FOR MARKER PLACEMENT. The patient tolerated the procedures well, with no immediate post biopsy complications. The patient was given verbal, as well as written post-procedure instructions (including Exofin instructions) and was released from the department in good condition. The attending physician, Quyen Kessler MD, was present for and supervised the entire procedure. Alexa Azar MD MAMMO ORDERABLES * (ABNORMAL) US BREAST LEFT LTD (07/17/2022 11:42 AM CDT) Anatomical Region Laterality Modality Breast Left Mammography 07/17/2022 11:1 9 AM CDT Impressions 07/17/2022 2:31 PM CDT : 1. Small asymmetry in the upper outer quadrant of the left breast is suspicious for malignancy. No ultrasound correlate. 2. No enlarged left axillary nodes. RECOMMENDATION: Stereotactic guided core biopsy of the left breast is recommended. Dr. Kessler discussed the examination findings and recommendations with the patient the time of the examination. Patient also met with Vicki Arreola R.N. and she is scheduled to return for the biopsy on 07/21/2022. BI-RADS Category 4: Suspicious (left breast) BI-RADS Category 6: Known biopsy-proven malignancy (from the right breast stereotactic guided biopsy performed 07/10/2022) OVERALL ASSESSMENT: BI-RADS CATEGORY 4: SUSPICIOUS. I, Quyen Kessler MD have personally reviewed and interpreted this examination/study. > Interpreting Provider: Quyen Kessler MD on 07/17/2022 2:31 PM Narrative 07/17/2022 2:31 PM CDT EXAMINATIONS: 1. DIGITAL MAMMO LEFT DIAGNOSTIC W [facility]ERELLE WITH CAD AND 2. LIMITED LEFT BREAST ULTRASOUND (COMBINED REPORT) DATE OF EXAM: 07/17/2022 11:19 AM HISTORY: Follow-up to an abnormal screening mammogram. Small focal asymmetry in the lateral mid to posterior depth left breast. Patient has recently diagnosed right breast cancer from stereotactic guided biopsy 07/10/2022. COMPARISON: Recent screening mammogram dated 02/07/2022 from [facility] in [facility]. MAMMOGRAM: TECHNIQUE: Diagnostic left mammography was performed. Tomosynthesis (3-D) and reconstructed synthetic 2-D images acquired. True lateral and craniocaudal and MLO spot compression tomosynthesis (3D) and synthetic 2D views also obtained. A total of 3 images were obtained. Computer-aided detection (CAD) was utilized. BREAST COMPOSITION: Category B: There are scattered areas of fibroglandular density. FINDINGS: Tiny focal asymmetry in the upper outer quadrant of the breast, 10 cm from the nipple persists on compression images. This is in the mid depth and is 11 cm from the nipple on the true lateral view. There are no associated microcalcifications. LIMITED LEFT BREAST ULTRASOUND: Ultrasound of the outer quadrant of the breast of the breast was performed. Scanning performed from the 12 to the 5 o'clock areas. The axilla was also scanned. Dr. Kessler also scanned the patient. FINDINGS: No mass or other abnormality is identified in the lateral left breast. No abnormality is identified to correspond with the small focal asymmetry on mammography. No left axillary lymphadenopathy. Alexa Azar MD US ORDERABLES * (ABNORMAL) MAMMO LEFT DIAGNOSTIC W CHERELLE (07/17/2022 11:18 AM CDT) Anatomical Region Laterality Modality Breast Left Mammography 07/17/2022 11:1 9 AM CDT Impressions 07/17/2022 2:31 PM CDT : 1. Small asymmetry in the upper outer quadrant of the left breast is suspicious for malignancy. No ultrasound correlate. 2. No enlarged left axillary nodes. RECOMMENDATION: Stereotactic guided core biopsy of the left breast is recommended. Dr. Kessler discussed the examination findings and recommendations with the patient the time of the examination. Patient also met with Vicki Arreola R.N. and she is scheduled to return for the biopsy on 07/21/2022. BI-RADS Category 4: Suspicious (left breast) BI-RADS Category 6: Known biopsy-proven malignancy (from the right breast stereotactic guided biopsy performed 07/10/2022) OVERALL ASSESSMENT: BI-RADS CATEGORY 4: SUSPICIOUS. I, Quyen Kessler MD have personally reviewed and interpreted this examination/study. > Interpreting Provider: Quyen Kessler MD on 07/17/2022 2:31 PM Narrative 07/17/2022 2:31 PM CDT EXAMINATIONS: 1. DIGITAL MAMMO LEFT DIAGNOSTIC W [place]ERELLE WITH CAD AND 2. LIMITED LEFT BREAST ULTRASOUND (COMBINED REPORT) DATE OF EXAM: 07/17/2022 11:19 AM HISTORY: Follow-up to an abnormal screening mammogram. Small focal asymmetry in the lateral mid to posterior depth left breast. Patient has recently diagnosed right breast cancer from stereotactic guided biopsy 07/10/2022. COMPARISON: Recent screening mammogram dated 02/07/2022 from [facility] in [facility]. MAMMOGRAM: TECHNIQUE: Diagnostic left mammography was performed. Tomosynthesis (3-D) and reconstructed synthetic 2-D images acquired. True lateral and craniocaudal and MLO spot compression tomosynthesis (3D) and synthetic 2D views also obtained. A total of 3 images were obtained. Computer-aided detection (CAD) was utilized. BREAST COMPOSITION: Category B: There are scattered areas of fibroglandular density. FINDINGS: Tiny focal asymmetry in the upper outer quadrant of the breast, 10 cm from the nipple persists on compression images. This is in the mid depth and is 11 cm from the nipple on the true lateral view. There are no associated microcalcifications. LIMITED LEFT BREAST ULTRASOUND: Ultrasound of the outer quadrant of the breast of the breast was performed. Scanning performed from the 12 to the 5 o'clock areas. The axilla was also scanned. Dr. Kessler also scanned the patient. FINDINGS: No mass or other abnormality is identified in the lateral left breast. No abnormality is identified to correspond with the small focal asymmetry on mammography. No left axillary lymphadenopathy. Alexa Azar MD MAMMO ORDERABLES * MAMMO STEREOTACTIC RIGHT BIOPSY (07/10/2022 1:08 PM CDT) Anatomical Region Laterality Modality Breast Right Mammography 07/10/2022 12:4 2 PM CDT Addenda Addendum by Quyen Kessler MD on 07/23/2022 3:04 PM CDT ADDENDUM: PATHOLOGY RESULTS x [address] Linh Parkinson. Report from biopsy site A in the upper inner quadrant of the right breast demonstrates invasive ductal carcinoma, poorly differentiated/Novi grade 3 and ductal carcinoma in situ, high nuclear grade with comedo necrosis. This is a malignant lesion The pathology report is concordant with the imaging findings. Report from biopsy site B in the upper inner quadrant of the right breast (more superior and posterior to site A) demonstrates ductal carcinoma in situ, high nuclear grade, solid type with necrosis and calcification. This is a malignant lesion The pathology report is concordant with the imaging findings. Dr. Azar will notify the patient of the biopsy findings and recommendations. As per prior report, diagnostic left mammogram and possible left breast ultrasound recommended for small focal asymmetry in the lateral left breast. If felt warranted clinically, breast MRI scan could be performed. Results were also provided to the referring physician via [employer]. > Interpreting Provider: Quyen Kessler MD on 07/11/2022 4:31 PM Addendum by Quyen Kessler MD on 07/11/2022 4:33 PM CDT ADDENDUM: PATHOLOGY RESULTS x [address] Linh Parkinson. Report from biopsy site A in the upper inner quadrant of the right breast demonstrates invasive ductal carcinoma, poorly differentiated/Novi grade 3 and ductal carcinoma in situ, high nuclear grade with comedo necrosis. This is a malignant lesion The pathology report is concordant with the imaging findings. Report from biopsy site B in the upper inner quadrant of the right breast (more superior and posterior to site A) demonstrates ductal carcinoma in situ, high nuclear grade, solid type with necrosis and calcification. This is a malignant lesion The pathology report is concordant with the imaging findings. Dr. Azar will notify the patient of the biopsy findings and recommendations. As per prior report, diagnostic left mammogram and possible left breast ultrasound recommended for small focal asymmetry in the lateral left breast. If felt warranted clinically, breast MRI scan could be performed. Results were also provided to the referring physician via [employer]. > Interpreting Provider: Quyen Kessler MD on 07/11/2022 4:31 PM Impressions 07/10/2022 1:28 PM CDT : 1. Technically successful, uncomplicated stereotactic (3D) guided vacuum-assisted core biopsy performed x 2 of the right breast. 2. Biopsy site A was of a group of microcalcifications in the upper inner quadrant of the breast. Ribbon-shaped marker clip placed at the biopsy site. This group of microcalcifications spans over at least 5 cm in anterior to posterior extent. 3. Biopsy B was of a group of microcalcifications in the upper inner quadrant of the breast. Coil marker clip placed at the biopsy site. Of note, the biopsy clips are 4.6 cm apart from one another on the true lateral view. This group of microcalcifications spans over at least 2 cm in anterior to posterior extent. The 2 groups together span over 9 cm in anterior to posterior extent. 4. Pathology results are pending. We will notify the patients of the pathology findings and recommendations. An addendum will be rendered to this report when the pathology results are made available. > Interpreting Provider: Quyen Kessler MD on 07/10/2022 1:28 PM Narrative 07/10/2022 1:28 PM CDT EXAMS: 1. STEREOTACTIC RIGHT BREAST BIOPSY WITH PRONE AFFIRM (3D) BIOPSY x 2 SITES AND 2. POST BIOPSY DIGITAL MAMMOGRAM RIGHT BREAST (COMBINED REPORT) DATE OF EXAM: 07/10/2022 1:25 PM CLINICAL INFORMATION: Site A: Calcifications in the upper inner quadrant of the right breast. These are more anterior in location. Site B: calcifications in the upper inner quadrant of the right breast. These are more posterior and superior location. The 2 groups of microcalcifications span over approximately 9 cm in anterior posterior extent in the upper inner quadrant of the right breast. COMPARISON: Prior outside mammogram from [facility] TECHNIQUE AND FINDINGS: Preprocedure images were reviewed. The procedure and its risks and benefits were discussed with the patient, including, but not limited to, bleeding, infection, allergy, and nondiagnostic specimen. Written and verbal informed consent was obtained and documented. After confirming the correct breast for biopsy, the breast was marked with a marking pen. The patient was then placed in a prone position on the stereotactic biopsy table. Prior to the procedure a hospital timeout procedure was performed, including verification of the laterality of the breast for biopsy. Site A: 3D tomosynthesis images were obtained for localization of the group of microcalcifications in the medial aspect of the breast, 8 centimeters from the nipple on the Lateral view. This was done via a mediolateral approach. The breast was prepped and draped in a sterile fashion. Local anesthesia was given with 3 cc of 1% Lidocaine, buffered with Sodium Bicarbonate within the skin and deeper anesthesia with 12 cc of 1% Lidocaine with Epinephrine, buffered with Sodium Bicarbonate. A small 5 mm skin incision was made with a #11 scalpel blade, and through it a 9-gauge Eviva vacuum-assisted incisional core biopsy needle was inserted to the depth of the lesion through an introducer. Confirmatory images were obtained, prior to firing the biopsy device, demonstrating good position of the biopsy needle. Several biopsy samples were obtained through the area of concern. The samples were radiographed and manufacturers representative calcifications are present within these samples. The samples with the calcifications identified on x-ray were out and placed in a small cassette, which was then placed in the formalin container. The tissue samples were placed in formalin and delivered to the pathology department by the technologist, following the procedure. A ribbon-shaped tissue marker clip was placed at the biopsy site. Hemostasis was achieved. The small wound was closed with Exofin at the end of the procedure. Site B: 3D tomosynthesis images were then obtained for localization of the group of microcalcifications in the upper inner quadrant of the breast, 14 centimeters from the nipple on the Lateral view. This was done via a mediolateral approach. The breast was prepped and draped in a sterile fashion. Local anesthesia was given with 3 cc of 1% Lidocaine, buffered with Sodium Bicarbonate within the skin and deeper anesthesia with 13 cc of 1% Lidocaine with Epinephrine and Sodium Bicarbonate. A small 5 mm skin incision was made with a #11 scalpel blade, and through it a 9-gauge Eviva vacuum-assisted incisional core biopsy needle was inserted to the depth of the lesion through an introducer. Confirmatory images were obtained, prior to firing the biopsy device, demonstrating good position of the biopsy needle. Several biopsy samples were obtained through the area of concern. The samples were radiographed and manufacturers representative calcifications are present within these samples. The samples with the calcifications identified on x-ray were out and placed in a small cassette, which was then placed in the formalin container. The tissue samples were placed in formalin and delivered to the pathology department by the technologist, following the procedure. A coil-shaped tissue marker clip was placed at the biopsy site. Hemostasis was achieved. The small wound was closed with Exofin at the end of the procedure. Estimated blood loss: Minimal Mammogram: A two-view right digital mammogram with CC and true lateral projections was obtained to check clip placement. Breast Composition: Category B: There are scattered areas of fibroglandular density. Biopsy site A: The ribbon clip is in good position at the biopsy site. This clip is in the medial breast more anterior and inferior to site B. Biopsy site B: The coil clip is in good position at the biopsy site. This clip is approximately 4.6 cm superior and posterior to site a. Assessment: POST-PROCEDURE MAMMOGRAM FOR MARKER PLACEMENT. The patient tolerated the procedures well, with no immediate post biopsy complications. The patient was given verbal, as well as written post-procedure instructions (including Exofin instructions) and was released from the department in good condition. The attending physician, Quyen Kessler MD, was present for and performed the entire procedure. Procedure Note Quyen Kessler MD - 07/14/2022 EXAMS: 1. STEREOTACTIC RIGHT BREAST BIOPSY WITH PRONE AFFIRM (3D) BIOPSY x 2 SITES AND 2. POST BIOPSY DIGITAL MAMMOGRAM RIGHT BREAST (COMBINED REPORT) DATE OF EXAM: 07/10/2022 1:25 PM CLINICAL INFORMATION: Site A: Calcifications in the upper inner quadrant of the rightbreast. These are more anterior in location. Site B: calcifications in the upper inner quadrant of the rightbreast. These are more posterior and superior location. The 2 groups of microcalcifications span over approximately 9 cm in anterior posterior extent in the upper inner quadrant of the right breast. COMPARISON: Prior outside mammogram from [facility] TECHNIQUE AND FINDINGS: Preprocedure images were reviewed. The procedure and its risks and benefits were discussed with the patient, including,but not limited to, bleeding, infection, allergy, and nondiagnosticspecimen. Written and verbal informed consent was obtained and documented. After confirming the correct breast for biopsy, the breast was markedwith a marking pen. The patient was then placed in a prone position on the stereotactic biopsy table. Prior to the procedure a hospital timeout procedure was performed, including verification of the laterality of the breast for biopsy. Site A: 3D tomosynthesis images were obtained for localization of the group of microcalcifications in the medial aspect of the breast, 8 centimetersfrom the nipple on the Lateral view. This was done via a mediolateral approach. The breast was prepped and draped in a sterile fashion. Local anesthesia was given with 3 cc of 1% Lidocaine, buffered with Sodium Bicarbonate within the skin and deeper anesthesia with 12 cc of 1% Lidocaine with Epinephrine, buffered with Sodium Bicarbonate. A small 5 mm skinincision was made with a #11 scalpel blade, and through it a 9-gauge Eviva vacuum-assisted incisional core biopsy needle was inserted to the depthof the lesion through an introducer. Confirmatory images were obtained,prior to firing the biopsy device, demonstrating good position of the biopsy needle. Several biopsy samples were obtained through the area of concern. The samples were radiographed and manufacturers representative calcifications arepresent within these samples. The samples with the calcifications identified on x-ray were out and placed in a small cassette, which was then placed in the formalin container. The tissue samples were placed in formalin and delivered to the pathology department by the technologist, following the procedure. A ribbon-shaped tissue marker clip was placed at the biopsy site. Hemostasis was achieved. The small wound was closed with Exofin at theend of the procedure. Site B: 3D tomosynthesis images were then obtained for localization of the groupof microcalcifications in the upper inner quadrant of the breast, 14 centimeters from the nipple on the Lateral view. This was done via a mediolateral approach. The breast was prepped and draped in a sterile fashion. Local anesthesia was given with 3 cc of 1% Lidocaine,buffered with Sodium Bicarbonate within the skin and deeper anesthesia with 13cc of 1% Lidocaine with Epinephrine and Sodium Bicarbonate. A small 5 mm skin incision was made with a #11 scalpel blade, and through it a9-gauge Eviva vacuum-assisted incisional core biopsy needle was inserted to the depth of the lesion through an introducer. Confirmatory images were obtained, prior to firing the biopsy device, demonstrating good positionof the biopsy needle. Several biopsy samples were obtained through thearea of concern. The samples were radiographed and manufacturers representative calcifications arepresent within these samples. The samples with the calcifications identified on x-ray were out and placed in a small cassette, which was then placed in the formalin container. The tissue samples were placed in formalin and delivered to the pathology department by the technologist, following the procedure. A coil-shaped tissue marker clip was placed at the biopsy site. Hemostasis was achieved. The small wound was closed with Exofin at theend of the procedure. Estimated blood loss: Minimal Mammogram: A two-view right digital mammogram with CC and true lateral projections was obtained to check clip placement. Breast Composition: Category B: There are scattered areas offibroglandular density. Biopsy site A: The ribbon clip is in good position at the biopsy site.This clip is in the medial breast more anterior and inferior to site B. Biopsy site B: The coil clip is in good position at the biopsy site.This clip is approximately 4.6 cm superior and posterior to site a. Assessment: POST-PROCEDURE MAMMOGRAM FOR MARKER PLACEMENT. The patient tolerated the procedures well, with no immediate post biopsy complications. The patient was given verbal, as well as written post-procedure instructions (including Exofin instructions) and was released from the department in good condition. The attending physician, Quyen Kessler MD, was present for and performed the entire procedure. IMPRESSION: 1. Technically successful, uncomplicated stereotactic (3D) guided vacuum-assisted core biopsy performed x 2 of the right breast. 2. Biopsy site A was of a group of microcalcifications in the upperinner quadrant of the breast. Ribbon-shaped marker clip placed at the biopsy site. This group of microcalcifications spans over at least 5 cm in anterior to posterior extent. 3. Biopsy B was of a group of microcalcifications in the upper inner quadrant of the breast. Coil marker clip placed at the biopsy site. Of note, the biopsy clips are 4.6 cm apart from one another on the true lateral view. This group of microcalcifications spans over at least 2 cmin anterior to posterior extent. The 2 groups together span over 9 cm in anterior to posterior extent. 4. Pathology results are pending. We will notify the patients of the pathology findings and recommendations. An addendum will be rendered to this report when the pathology results are made available. > Interpreting Provider: Quyen Kessler MD on 07/10/2022 1:28 PM Alexa Azar MD MAMMO ORDERABLES * MAMMO RIGHT POST CLIP OR WIRE W CHERELLE (07/10/2022 1:01 PM CDT) Anatomical Region Laterality Modality Breast Right Mammography 07/11/2022 4:25 PM CDT Addenda Addendum by Quyen Kessler MD on 07/23/2022 3:04 PM CDT ADDENDUM: PATHOLOGY RESULTS x [address] Linh Parkinson. Report from biopsy site A in the upper inner quadrant of the right breast demonstrates invasive ductal carcinoma, poorly differentiated/Novi grade 3 and ductal carcinoma in situ, high nuclear grade with comedo necrosis. This is a malignant lesion The pathology report is concordant with the imaging findings. Report from biopsy site B in the upper inner quadrant of the right breast (more superior and posterior to site A) demonstrates ductal carcinoma in situ, high nuclear grade, solid type with necrosis and calcification. This is a malignant lesion The pathology report is concordant with the imaging findings. Dr. Azar will notify the patient of the biopsy findings and recommendations. As per prior report, diagnostic left mammogram and possible left breast ultrasound recommended for small focal asymmetry in the lateral left breast. If felt warranted clinically, breast MRI scan could be performed. Results were also provided to the referring physician via [employer]. > Interpreting Provider: Quyen Kessler MD on 07/11/2022 4:31 PM Addendum by Quyen Kessler MD on 07/11/2022 4:33 PM CDT ADDENDUM: PATHOLOGY RESULTS x [address] Linh Parkinson. Report from biopsy site A in the upper inner quadrant of the right breast demonstrates invasive ductal carcinoma, poorly differentiated/Mary grade 3 and ductal carcinoma in situ, high nuclear grade with comedo necrosis. This is a malignant lesion The pathology report is concordant with the imaging findings. Report from biopsy site B in the upper inner quadrant of the right breast (more superior and posterior to site A) demonstrates ductal carcinoma in situ, high nuclear grade, solid type with necrosis and calcification. This is a malignant lesion The pathology report is concordant with the imaging findings. Dr. Azar will notify the patient of the biopsy findings and recommendations. As per prior report, diagnostic left mammogram and possible left breast ultrasound recommended for small focal asymmetry in the lateral left breast. If felt warranted clinically, breast MRI scan could be performed. Results were also provided to the referring physician via [employer]. > Interpreting Provider: Quyen Kessler MD on 07/11/2022 4:31 PM Impressions 07/10/2022 1:28 PM CDT IMPRESSION: 1. Technically successful, uncomplicated stereotactic (3D) guided vacuum-assisted core biopsy performed x 2 of the right breast. 2. Biopsy site A was of a group of microcalcifications in the upper inner quadrant of the breast. Ribbon-shaped marker clip placed at the biopsy site. This group of microcalcifications spans over at least 5 cm in anterior to posterior extent. 3. Biopsy B was of a group of microcalcifications in the upper inner quadrant of the breast. Coil marker clip placed at the biopsy site. Of note, the biopsy clips are 4.6 cm apart from one another on the true lateral view. This group of microcalcifications spans over at least 2 cm in anterior to posterior extent. The 2 groups together span over 9 cm in anterior to posterior extent. 4. Pathology results are pending. We will notify the patients of the pathology findings and recommendations. An addendum will be rendered to this report when the pathology results are made available. > Interpreting Provider: Quyen Kessler MD on 07/10/2022 1:28 PM Narrative 07/10/2022 1:28 PM CDT EXAMS: 1. STEREOTACTIC RIGHT BREAST BIOPSY WITH PRONE AFFIRM (3D) BIOPSY x 2 SITES AND 2. POST BIOPSY DIGITAL MAMMOGRAM RIGHT BREAST (COMBINED REPORT) DATE OF EXAM: 07/10/2022 1:25 PM CLINICAL INFORMATION: Site A: Calcifications in the upper inner quadrant of the right breast. These are more anterior in location. Site B: calcifications in the upper inner quadrant of the right breast. These are more posterior and superior location. The 2 groups of microcalcifications span over approximately 9 cm in anterior posterior extent in the upper inner quadrant of the right breast. COMPARISON: Prior outside mammogram from [facility] TECHNIQUE AND FINDINGS: Preprocedure images were reviewed. The procedure and its risks and benefits were discussed with the patient, including, but not limited to, bleeding, infection, allergy, and nondiagnostic specimen. Written and verbal informed consent was obtained and documented. After confirming the correct breast for biopsy, the breast was marked with a marking pen. The patient was then placed in a prone position on the stereotactic biopsy table. Prior to the procedure a hospital timeout procedure was performed, including verification of the laterality of the breast for biopsy. Site A: 3D tomosynthesis images were obtained for localization of the group of microcalcifications in the medial aspect of the breast, 8 centimeters from the nipple on the Lateral view. This was done via a mediolateral approach. The breast was prepped and draped in a sterile fashion. Local anesthesia was given with 3 cc of 1% Lidocaine, buffered with Sodium Bicarbonate within the skin and deeper anesthesia with 12 cc of 1% Lidocaine with Epinephrine, buffered with Sodium Bicarbonate. A small 5 mm skin incision was made with a #11 scalpel blade, and through it a 9-gauge Eviva vacuum-assisted incisional core biopsy needle was inserted to the depth of the lesion through an introducer. Confirmatory images were obtained, prior to firing the biopsy device, demonstrating good position of the biopsy needle. Several biopsy samples were obtained through the area of concern. The samples were radiographed and manufacturers representative calcifications are present within these samples. The samples with the calcifications identified on x-ray were out and placed in a small cassette, which was then placed in the formalin container. The tissue samples were placed in formalin and delivered to the pathology department by the technologist, following the procedure. A ribbon-shaped tissue marker clip was placed at the biopsy site. Hemostasis was achieved. The small wound was closed with Exofin at the end of the procedure. Site B: 3D tomosynthesis images were then obtained for localization of the group of microcalcifications in the upper inner quadrant of the breast, 14 centimeters from the nipple on the Lateral view. This was done via a mediolateral approach. The breast was prepped and draped in a sterile fashion. Local anesthesia was given with 3 cc of 1% Lidocaine, buffered with Sodium Bicarbonate within the skin and deeper anesthesia with 13 cc of 1% Lidocaine with Epinephrine and Sodium Bicarbonate. A small 5 mm skin incision was made with a #11 scalpel blade, and through it a 9-gauge Eviva vacuum-assisted incisional core biopsy needle was inserted to the depth of the lesion through an introducer. Confirmatory images were obtained, prior to firing the biopsy device, demonstrating good position of the biopsy needle. Several biopsy samples were obtained through the area of concern. The samples were radiographed and manufacturers representative calcifications are present within these samples. The samples with the calcifications identified on x-ray were out and placed in a small cassette, which was then placed in the formalin container. The tissue samples were placed in formalin and delivered to the pathology department by the technologist, following the procedure. A coil-shaped tissue marker clip was placed at the biopsy site. Hemostasis was achieved. The small wound was closed with Exofin at the end of the procedure. Estimated blood loss: Minimal Mammogram: A two-view right digital mammogram with CC and true lateral projections was obtained to check clip placement. Breast Composition: Category B: There are scattered areas of fibroglandular density. Biopsy site A: The ribbon clip is in good position at the biopsy site. This clip is in the medial breast more anterior and inferior to site B. Biopsy site B: The coil clip is in good position at the biopsy site. This clip is approximately 4.6 cm superior and posterior to site a. Assessment: POST-PROCEDURE MAMMOGRAM FOR MARKER PLACEMENT. The patient tolerated the procedures well, with no immediate post biopsy complications. The patient was given verbal, as well as written post-procedure instructions (including Exofin instructions) and was released from the department in good condition. The attending physician, Quyen Kessler MD, was present for and performed the entire procedure. Procedure Note Quyen Kessler MD - 07/10/2022 EXAMS: 1. STEREOTACTIC RIGHT BREAST BIOPSY WITH PRONE AFFIRM (3D) BIOPSY x 2 SITES AND 2. POST BIOPSY DIGITAL MAMMOGRAM RIGHT BREAST (COMBINED REPORT) DATE OF EXAM: 07/10/2022 1:25 PM CLINICAL INFORMATION: Site A: Calcifications in the upper inner quadrant of the rightbreast. These are more anterior in location. Site B: calcifications in the upper inner quadrant of the rightbreast. These are more posterior and superior location. The 2 groups of microcalcifications span over approximately 9 cm in anterior posterior extent in the upper inner quadrant of the right breast. COMPARISON: Prior outside mammogram from [facility] TECHNIQUE AND FINDINGS: Preprocedure images were reviewed. The procedure and its risks and benefits were discussed with the patient, including,but not limited to, bleeding, infection, allergy, and nondiagnosticspecimen. Written and verbal informed consent was obtained and documented. After confirming the correct breast for biopsy, the breast was markedwith a marking pen. The patient was then placed in a prone position on the stereotactic biopsy table. Prior to the procedure a hospital timeout procedure was performed, including verification of the laterality of the breast for biopsy. Site A: 3D tomosynthesis images were obtained for localization of the group of microcalcifications in the medial aspect of the breast, 8 centimetersfrom the nipple on the Lateral view. This was done via a mediolateral approach. The breast was prepped and draped in a sterile fashion. Local anesthesia was given with 3 cc of 1% Lidocaine, buffered with Sodium Bicarbonate within the skin and deeper anesthesia with 12 cc of 1% Lidocaine with Epinephrine, buffered with Sodium Bicarbonate. A small 5 mm skinincision was made with a #11 scalpel blade, and through it a 9-gauge Eviva vacuum-assisted incisional core biopsy needle was inserted to the depthof the lesion through an introducer. Confirmatory images were obtained,prior to firing the biopsy device, demonstrating good position of the biopsy needle. Several biopsy samples were obtained through the area of concern. The samples were radiographed and manufacturers representative calcifications arepresent within these samples. The samples with the calcifications identified on x-ray were out and placed in a small cassette, which was then placed in the formalin container. The tissue samples were placed in formalin and delivered to the pathology department by the technologist, following the procedure. A ribbon-shaped tissue marker clip was placed at the biopsy site. Hemostasis was achieved. The small wound was closed with Exofin at theend of the procedure. Site B: 3D tomosynthesis images were then obtained for localization of the groupof microcalcifications in the upper inner quadrant of the breast, 14 centimeters from the nipple on the Lateral view. This was done via a mediolateral approach. The breast was prepped and draped in a sterile fashion. Local anesthesia was given with 3 cc of 1% Lidocaine,buffered with Sodium Bicarbonate within the skin and deeper anesthesia with 13cc of 1% Lidocaine with Epinephrine and Sodium Bicarbonate. A small 5 mm skin incision was made with a #11 scalpel blade, and through it a9-gauge Eviva vacuum-assisted incisional core biopsy needle was inserted to the depth of the lesion through an introducer. Confirmatory images were obtained, prior to firing the biopsy device, demonstrating good positionof the biopsy needle. [facility] The samples were radiographed and manufacturers representative calcifications arepresent within these samples. The samples with the calcifications identified on x-ray were out and placed in a small cassette, which was then placed in the formalin container. The tissue samples were placed in formalin and delivered to the pathology department by the technologist, following the procedure. A coil-shaped tissue marker clip was placed at the biopsy site. Hemostasis was achieved. The small wound was closed with Exofin at theend of the procedure. Estimated blood loss: Minimal Mammogram: A two-view right digital mammogram with CC and true lateral projections was obtained to check clip placement. Breast Composition: Category B: There are scattered areas offibroglandular density. Biopsy site A: The ribbon clip is in good position at the biopsy site.This clip is in the medial breast more anterior and inferior to site B. Biopsy site B: The coil clip is in good position at the biopsy site.This clip is approximately 4.6 cm superior and posterior to site a. Assessment: POST-PROCEDURE MAMMOGRAM FOR MARKER PLACEMENT. The patient tolerated the procedures well, with no immediate post biopsy complications. The patient was given verbal, as well as written post-procedure instructions (including Exofin instructions) and was released from the department in good condition. The attending physician, Quyen Kessler MD, was present for and performed the entire procedure. IMPRESSION: 1. Technically successful, uncomplicated stereotactic (3D) guided vacuum-assisted core biopsy performed x 2 of the right breast. 2. Biopsy site A was of a group of microcalcifications in the upperinner quadrant of the breast. Ribbon-shaped marker clip placed at the biopsy site. This group of microcalcifications spans over at least 5 cm in anterior to posterior extent. 3. Biopsy B was of a group of microcalcifications in the upper inner quadrant of the breast. Coil marker clip placed at the biopsy site. Of note, the biopsy clips are 4.6 cm apart from one another on the true lateral view. This group of microcalcifications spans over at least 2 cmin anterior to posterior extent. The 2 groups together span over 9 cm in anterior to posterior extent. 4. Pathology results are pending. We will notify the patients of the pathology findings and recommendations. An addendum will be rendered to this report when the pathology results are made available. > Interpreting Provider: Quyen Kessler MD on 07/10/2022 1:28 PM Alexa Azar MD MAMMO ORDERABLES * (ABNORMAL) MM OUTSIDE MAMMO FILM READ [...] assisted with scheduling of this in the [facility]. Patient will receive her results from and [...] images may or may not represent [place] and thus may contain [...] this second opinion. FACILITY WHERE STUDY PERFORMED: [facility] in [place], [place]. COMPARISON: None. FINDINGS: Screening mammogram dated [...] of this secondopinion. FACILITY WHERE STUDY PERFORMED: [facility] in [place], [place]. COMPARISON: None. FINDINGS: Screening mammogram dated [...] assisted with scheduling of this in the [facility]. Patient will receive her results from and follow up with Dr. Azar. Right breast: BI-RADS Category 4: Suspicious (subsegmental category 4C: High suspicion for malignancy). Left breast: BI-RADS Category 0: Incomplete: Need additional imaging evaluation OVERALL ASSESSMENT: BI-RADS CATEGORY 4: SUSPICIOUS. (SUBSET [id number]: HIGH SUSPICION FOR MALIGNANCY). Note: The findings, conclusions and recommendations within this reportdo not replace the initial findings, conclusions and recommendations madeat the facility where the study was performed, based upon the imaging and clinical condition at that time, and comparison with the prior reportand clinical history is necessary. The provided images may or may not represent the [place] source data setand thus may contain changes, which may lower the sensitivity in the second opinion interpretation. > Interpreting Provider: Quyen Kessler MD on 07/08/2022 8:03 PM Alexa Azar MD IMAGING Care Teams Cash On Delivery Clerk Relationship Specialty Start Date End Date Jignesh Floyd MD [address] [place] [address] PCP - General 05/30/22
--- OUTSIDE RECORDS SUMMARY | 2024-12-01 08:27 | XMS_ITS | Referral Summary ---
Author Organization [facility] Address [address] [place] [address] Care Team Providers Care Director Of Search Engine Optimization Name Role Phone Jignesh Floyd MD Primary Care Provider [phone] Source Comments [facility],non-owned Affiliates and Associated Physician Practices is amultiple site organization consisting of ambulatory clinics and hospital sitesin [place], [place], [place] and [place]. This disclosure is being madepursuant to the Care Everywhere program and may not contain all information available regarding this patient. Last updated 18.[facility] Allergies No known active allergies Medications * [...] 06/20/2022 Active Cholecalciferol (vitamin D3) 1.25 MG (62072 UT) capsule Take 1 (one) capsule by [...] from 07/10/2022:Stage IB(cT2, cN0, cM0, G3, ER+, IA+, HER2+) - Signed by Alexa Azar MD on 07/18/2022 Pathologic stage from 09/05/2022:Stage IA(pT1b(m), pN0(sn), cM0, G3, ER+, IA+, HER2+) - Signed by Alexa Azar MD [...] Sex Assigned at Female 08/08/2022 1:01 AM IMPORT/EXPORT ANALYST Gender Identity Female 08/08/2022 1:01 AM IMPORT/EXPORT ANALYST Sexual Orientation Straight 08/08/2022 1: 01 AM IMPORT/EXPORT ANALYST Last Filed Vital Signs Vital Sign Reading Time Taken Comments Blood Pressure 110/69 07/06/2024 9:52 AM CDT Pulse 61 07/06/2024 9:52 AM CDT Temperature 36.6 C (97.8 F) 07/06/2024 9:52 AM CDT Respiratory Rate 20 07/06/2024 9:52 AM CDT Oxygen Saturation 99% 07/06/2024 9:52 AM CDT Inhaled Oxygen Concentration 21% 09/05/2022 6 :55 PM IMPORT/EXPORT ANALYST Weight 93.8 kg (206 lb 12.8 oz) 07/06/2024 9:52 AM CDT Height 162.6 cm (5' 4 ) 06/20/2024 10:0 9 AM CDT Body Mass Index 35.5 06/20/2024 10:09 AM CDT Functional Status Functional Status Response Date of Assess ment Is person deaf or have serious hearing difficult y? No 01/18/2024 Is person blind or have serious difficulty seein g? No 01/18/2024 Does person have serious dif ficulty walking/climbing stairs? No 01/18/2024 Does person have difficulty dressing/bathing? No 01/18/2024 Does person have difficulty doing errands alone? No 01/18/2024 Cognitive Status Response Date of Assessm ent Does person have difficulty concentrating/remembering/making decisions? No 01/18/2024 Plan of Treatment Upcoming Encounters Date Type Department Care Team (Late st Contact Info) Description 01/04/2025 9:40 AM CDT Office Visit [facility] - Hematology/Oncology [address] [place] [address] Sammi Tee MD [address] [place] [address] 06/19/2025 10:30 AM CDT Office Visit [facility] - General Surgery [address] [place] [address] Alexa Azar MD [address] [place] [address] Medical Devices Implanted Type Area Unit Secy Device Identifier Shelf Expiration Date Model / Serial / Lot Mrkr Apl 3 Mrfbr Pd Radopq Interwoven Implanted:Qty: 1 on 07/10/2022 by Quyen Kessler MD at [facility] Right: Breast [employer] 01/20/2024 [id number] / / [id number] Mrkr Apl 3 Mrfbr Pd Radopq Interwoven Implanted:Qty: 1 on 07/10/2022 by Quyen Kessler MD at [facility] Right: Breast [employer]ipheral [employer] 02/20/2024 [id number] / / [id number] Mrkr Apl 3 Mrfbr Pd Radopq Interwoven Implanted:Qty: 1 on 07/21/2022 by Quyen Kessler MD at [facility] Left: Breast [employer] 02/20/2024 [id number] / / [id number] Natrelle 133s Tissue Video Arcade Manager 500cc Implanted:Qty: 1 on 09/05/2022 by Larissa Wooten MD at [facility] Right: Breast 09/14/2026 133S-MX-13- T / [id number] / Natrelle 133s Tissue Video Arcade Manager 500cc Implanted:Qty: 1 on 09/05/2022 by Alexa Azar MD at [facility] Left: Breast 11/04/2026 133S-MS-13- T / [id number] / Alloderm Select Tissue Matrix Large Contour Implanted:Qty: 1 on 09/05/2022 by Larisas Wooten MD at [facility] Right: Breast 07/21/2023 [id number] / / [id number] Alloderm Select Tissue Matrix Contour Large Implanted:Qty: 1 on 09/05/2022 by Larissa Wooten MD at [facility] Left: Breast 09/20/2023 [id number] / / [id number] Port Implinfn Powerport Clrvu Argd Smita Implanted:Qty: 1 on 10/21/2022 at [facility] 12/20/2023 [id number] / / [id number] Procedures Procedure Name Priority Date/Time Associated Diagnosis [...] 7 - 26 mg/dL 07/06/2024 10:21 AM [facility] Creatinine 1.36(H) 0.56 - 0.96 mg/dL 07/06/2024 10:21 AM [facility] Sodium 144 136 - 145 mmol/L 07/06/2024 10:21 AM [facility] Potassium 4.4 3.5 - 4.5 mmol/L 07/06/2024 10:21 AM [facility] Chloride 110(H) 98 - 107 mmol/L 07/06/2024 10:21 AM [facility] CO2 25 22 - 29 mmol/L 07/06/2024 10:21 AM [facility] Glucose 105 70 - 115 mg/dL 07/06/2024 10:21 AM [facility] Calcium 10.2 8.4 - 10.2 mg/dL 07/06/2024 10:21 AM [facility] Protein Total 7.3 6.0 - 8.3 g/dL 07/06/2024 10:21 AM [facility] Albumin 4.1 3.4 - 5.0 g/dL 07/06/2024 10:21 AM [facility] Bilirubin Total 0.4 0.2 - 1.2 mg/dL 07/06/2024 10:21 AM [facility] Alkaline Phosphatase 57 40 - 150 U/L 07/06/2024 10:21 AM [facility] ALT 15 5 - 55 U/L 07/06/2024 10:21 AM [facility] AST 16 5 - 34 U/L 07/06/2024 10:21 AM CDT [facility] Anion Gap 9 6 - 16 07/06/2024 10:21 AM CDT [facility] BUN/Creatinine Ratio 18 7 - 23 07/06/2024 10:21 AM CDT [facility] Osmolality Calculated 303(H) 275 - 295 mOsm/kg 07/06/2024 10:21 AM T [facility] Albumin/Globulin Ratio 1.3 1.1 - 2.3 07/06/2024 10:21 AM T [facility] eGFR by CKD-EPI 42(L) >=90 mL/min/1.7 3 m2 07/06/2024 10:21 AM CDT [facility] Blood BLOOD SPECIMEN / Unknown Lab Venipuncture / Unknown 07/06/2024 9:24 AM CDT 07/06/2024 9:26 AM CDT Corinne Jean RN [facility] - CHEMIS TRY ORDERABLES Performing Organization Address City/State/[facility] Co de Phone Number [facility] [address] [place] [phone], [facility] [phone] * (ABNORMAL) MM OUTSIDE MAMMO FILM READ [...] assisted with scheduling of this in the [facility]. Patient will receive her results from and [...] images may or may not represent the [place] source data set and thus may contain [...] this second opinion. FACILITY WHERE STUDY PERFORMED: [facility] in [place], [place]. COMPARISON: None. FINDINGS: Screening mammogram dated [...] of this secondopinion. FACILITY WHERE STUDY PERFORMED: [facility] in [place], [place]. COMPARISON: None. FINDINGS: Screening mammogram dated [...] assisted with scheduling of this in the [facility]. Patient will receive her results from and follow up with Dr. Azar. Right breast: BI-RADS Category 4: Suspicious (subsegmental category 4C: High suspicion for malignancy). Left breast: BI-RADS Category 0: Incomplete: Need additional imaging evaluation OVERALL ASSESSMENT: BI-RADS CATEGORY 4: SUSPICIOUS. (SUBSET [id number]: HIGH SUSPICION FOR MALIGNANCY). Note: The findings, conclusions and recommendations within this reportdo not replace the initial findings, conclusions and recommendations madeat the facility where the study was performed, based upon the imaging and clinical condition at that time, and comparison with the prior reportand clinical history is necessary. The provided images may or may not represent the [place] source data setand thus may contain changes, [...] 6:34 PM 09/06/2022 12:43 PM Care Teams Director Of Search Engine Optimization Relationship Specialty Start Date End Date Jignesh Floyd MD [address] [place] [id number] PCP - General 05/30/22
[2024-12-01 19:10] LABS: Albumin Level 4.3 g/dL (3.5-5.1); Anion Gap 10 mmol/L (4-12); Blood Urea Nitrogen 24 mg/dL (7-17); Calcium 9.7 mg/dL (8.4-10.2); Carbon Dioxide 29 mmol/L (22-30); Chloride 104 mmol/L (98-107); Estimated Glomerular Filt Rate 39; Glucose 96 mg/dL (65-110); Phosphorus 4.5 mg/dL (2.5-4.5); Sodium 143 mmol/L (137-145)
[2024-12-01 19:12] LABS: Creatinine Urine 217.4 mg/dL; Total Protein Urine Random 11 mg/dL; Ur Ttl Prot Creatinine Ratio 0.05 mg/mg (0-0.20)
[2024-12-01 19:19] LABS: Hematocrit 42.1 % (37.0-47.0); Hemoglobin 12.8 g/dL (12.0-15.0); Mean Corpuscular HGB Conc 30.4 g/dl (32-36); Mean Corpuscular Volume 95.5 fl (80-100); Mean Platelet Volume 10.6 fl (7.4-10.4); Platelet Count Result 298 k/mm3 (150-375); Red Blood Count 4.41 M/mm3 (4.2-5.4); Red Cell Distribution Width 13.1 % (11.5-14.5); White Blood Count 8.2 K/mm3 (4.5-10.0)
== END 2024-12-01 08:15 | disposition home or self-care (01) ==
LOC: ANHBWCLAB 08:16
PROVIDERS: PCP Nurse Practitioner Adult Health; Visit Provider Internal Medicine Nephrology
DX: N18.31 Chronic kidney disease, stage 3a (principal); E53.8 Deficiency of other specified B group vitamins
CPT/HCPCS: 36415; 80069; 82570; 83970; 84156; 85027

== ENCOUNTER 2025-01-02 09:19 | Outpatient (CLI) | payer OTHER, SELFPAY ==
--- OUTSIDE RECORDS SUMMARY | 2025-01-02 10:04 | XMS_ITS ---
Author Organization [facility] Address [address] [place] [address] Care Team Providers Care Rf Test Engineer Name Role Phone Jignesh Floyd MD Primary Care Provider [phone] Active Problems Problem Noted Date Diagnosed Date Malignant neoplasm of upper- inner quadrant of right breast in female, estrogen receptor positive 07/18/2022 Cancer Staging:Clinical stage from 07/10/2022:Stage IB(cT2, cN0, cM0, G3, ER+, MD+, HER2+) - Signed by Alexa Azar MD on 07/18/2022 Pathologic stage from 09/05/2022:Stage IA(pT1b(m), pN0(sn), cM0, G3, ER+, MD+, HER2+) - Signed by Alexa Azar MD on 10/01/2022 Current Treatment and Therapy Plans No current plan information found. Past Treatment and Therapy Plans ONCOLOGY TREATMENT Plan Name Start Date Discontinue Date Treatment Medications Discontinue Reason Plan Provider Cycles BREAST ADJ (PACLITAXEL TRASTUZUMAB) Q7 DAYS --> TRASTUZUMAB Q21 DAYS 3 10/28/2023 PACLitaxel (Taxol) in 250 mL infusiontrastuzumab (Herceptin) infusiontrastuzumab-p krb (Herzuma) infusion Therapy Complete Gio Wilder MD 25 of 25 cycles started Treatment Summaries Malignant neoplasm of upper-inner quadrant of right breast in female, estrogen receptor positive (HCC)* [address] [address] Oncology Treatment Summary Breast Treatment Summary for [...] SLNB Date: 09/05/22 Surgeon/Facility Name: Dr. Azar [facility] Adjuvant Treatment Recommendations: Medical oncology Initial Imaging Mammogram: Bilateral screening mammogram 02/10/2022 ([place]) -- read by [facility] radiology -- large segmental area of fine pleomorphic calcifications in the upper inner right breast spanning 9cm; small focal asymmetry in the left breast. BIRADS-0 Right diagnostic mammogram 05/20/2022 ([facility]) -- fine pleomorphic calcifications in a linear distribution in the slightly outer right breast at the 3:00 location spanning 9cm. BIRADS-4 Left diagnostic mammogram and ultrasound ([facility]) 07/17/2022 -- tiny focal asymmetry in the [...] up with Location How often Radiation Oncology [facility] Clinical visit every 4-6 months for 5 yrs, then every 12 months Medical Oncology [facility] Surgery [facility] Mammography [facility] Bilateral Diagnostic Mammogram every 12 months Reasons to call: New lesions or mass Chest pain New feelings of sadness or being overwhelmed Unintended weight loss Cough that does not go away Any side effects or questions of care Your follow up schedule is listed below Future Appointments Date Time Provider Department Center 10/08/2023 11:30 AM Alexa Azar MD [facility] 10/28/2023 8:50 AM [facility] CHEMOTHERAPY [facility] 01/06/2024 8:40 AM [facility]anda [facility] Contact Information Radiation Oncologist Dr. Neil Fowler Medical Oncologist Dr. Wade [phone] Alexa Azar Social Work Parole Agent Deirdre Cannon Breast Nurse Navigator Sherrie Ndiaye RN [phone] [facility] Hospital Scheduling Primary Care Provider Jignesh Floyd MD [phone] Recommended cancer screenings Colonoscopy: every 10 years [...] walk a few extra steps. Important Resources [facility] [place] [employer] cancer.org Association of Cancer Online Resources acor.org Caring Bridge [email or web address] CancerCare cancercare.org LiveStrong Foundation livestrong.org National Cancer Ingram cancer.gov Cancer Survivors Network [email or web address] National Coalition for Cancer Survivorship canceradvocacy.org [place] Society of Clinical Oncologists cancer.net Cancer Support Community [facility] [email or web address] Radiation Therapy Questions/Answers [email or web address].[email or web address]
--- OUTSIDE RECORDS SUMMARY | 2025-01-02 10:04 | XMS_ITS | Referral Summary ---
Author Organization [address] Address [address] [place] [phone] Care Team Providers Care Magnetic Locater Name Role Phone Frederic Tobar MD Primary Care Provider + Encounters Date Type Department Care Team Description 12/29/2024 11:01 AM CDT - 12/29/2024 11:59 [place] [address] Annual physical exam Discharge Disposition: Discharge to home or self care 12/29/2024 11:00 AM CDT Lab [facility] Outpatient Lab at [address] [place] [phone] Routine general medical examination at a health care facility (Primary Dx) 12/29/2024 10:30 AM CDT Office Visit [facility] Primary Care at [address] [place] [address] Frederic Tobar MD Encounter for screening mammogram for malignant neoplasm of breast (Primary Dx); CKD stage 3a, GFR 45-59 ml/min (HCC); Primary hypertension; Nonrheumatic aortic valve stenosis; Post-menopause; Annual physical exam; Severe obesity (HCC) from Last 3 Months Allergies No known active allergies Medications letrozole (FEMARA) 2.5 mg tablet Take 1 tablet (2.5 mg total) by mouth daily Active Jardiance 10 mg tablet Take 1 tablet (10 mg total) by mouth daily Active amLODIPine (NORVASC) 10 mg tabletIndicatio ns:hypertension Take 0.5 tablets (5 mg total) by mouth daily Active cholecalciferol (VITAMIN D-3) 50,000 unit capsule Take 1 capsule (50,000 Units total) by mouth once a week 3 Active lisinopriL (PRINIVIL,ZESTR IL) 30 mg tablet Take 1 tablet (30 mg total) by mouth daily Active ondansetron (ZOFRAN) 8 mg tablet Take 1 tablet (8 mg total) by mouth every 8 (eight) hours as needed 3 12/30/19 25 Discontinu ed(Therapy completed) Active Problems Problem Noted Date Diagnosed Date CKD stage 3a, GFR 45-59 ml/min 12/29/2024 Severe obesity 12/29/2024 Social History Tobacco Use Types Packs/Day Years Used Date Smoking Tobacco: Never Smokeless Tobacco: Never Tobacco Cessation:Counseling Given: Not Answered PHQ-2 Answer Date Recorded PHQ-2 Total Score (If total score is 3 or more points, staff should administer the PHQ-9) 0 12/29/2024 Comments Unknown Sex and Gender Information Value Date Recorded Sex Assigned at Not on file Legal Sex Female 10:01 AM SITE PROMOTION AGENT Gender Identity Not on file Sexual Orientation Not on file Last Filed Vital Signs Vital Sign Reading Time Taken Comments Blood Pressure 120/66 12/29/2024 10:28 AM CDT Pulse 75 12/29/2024 10:28 AM CDT Temperature - - Respiratory Rate - - Oxygen Saturation 98% 12/29/2024 10:28 AM CDT Inhaled Oxygen Concentration - - Weight 94.3 kg (208 lb) 12/29/2024 10:28 AM CDT Height 162.6 cm (5' 4 ) 12/29/2024 10:28 AM CDT Body Mass Index 35.7 12/29/2024 10:28 AM CDT Plan of Treatment Not on file Procedures Procedure Name Priority Date/Time Associated Diagnosis Comments EGFR Routine 12/29/2024 11:01 AM CDT Annual physical exam DIFFERENTIAL AUTO Routine 12/29/2024 11: 01 AM CDT Annual physical exam HEMOGLOBIN A1C Routine 12/29/2024 11:01 AM CDT Annual physical exam THYROID FUNCTION CASCADE Routine 12/29/2024 11:01 AM CDT Annual physical exam LIPID PANEL Routine 12/29/2024 11:01 AM CDT Annual physical exam COMPREHENSIVE METABOLIC PANEL Routine 12/29/2024 11:01 AM CDT Annual physical exam CBC WITH AUTO DIFFERENTIAL Routine 12/29/2024 11:01 AM CDT Annual physical exam from Last 3 Months Results * (ABNORMAL) eGFR (12/29/2024 11:01 AM CDT) eGFR 45(L) >=60 mL/min/1. 73 m2 Comment: Interpretive Data Reference Interval Normal >/= 90 mL/min/1.73m2 Mildly decreased* 60 - 89 mL/min/1.73m2 Mildly to moderately decreased 45 - 59 mL/min/1.73m2 Moderately to severely decreased 30 - 44 mL/min/1.73m2 Severely decreased 15 - 29 mL/min/1.73m2 Kidney Failure < 15 mL/min/1.73m2 *Relative to young adult level Estimated glomerular filtration rate is determined by the 2020 CKD-EPI equation recommended by the National Kidney Foundation (A Unifying Approach to GFR Estimation: Recommendations of the NKF-ASK Task Force on Reassessing the Inclusion of Race in Diagnosing Kidney Disease, JASN 2020). The CKD-EPI equation should not be used for patients with unstable renal function and has not been validated in children and those over 70. Current interpretive data was last reviewed 2021. Blood 12/29/2024 11:0 1 AM CDT 12/29/2024 9:11 PM CDT us Frederic Tobar MD LAB BLOOD ORDERABLES Fin al Result [facility] [address] Department [place] [address] * (ABNORMAL) Differential, auto (12/29/2024 11:01 AM CDT) Neutrophil abs 6.88(H) 1.50 - 6.50 K/cumm Imm gran abs 0.05 0.00 - 0.10 K/cumm [facility] Lymphocyte abs 2.62 0.80 - 3.30 K/cumm [facility] Monocyte abs 0.70 0.20 - 0.80 K/cumm [facility] Eosinophil abs 0.28 0.00 - 0.50 K/cumm [facility] Basophil abs 0.06 0.00 - 0.10 K/cumm [facility] Neutrophil pct 65.0 % [facility] Comment: Interpretive Data Percent cell count reference ranges are not reported, since discordance with absolute values may lead to misinterpretation of CBC data. Current Interpretive Data was last revised on 2017. Imm gran pct 0.5 % [facility] Comment: Interpretive Data Percent cell count reference ranges are not reported, since discordance with absolute values may lead to misinterpretation of CBC data. Current Interpretive Data was last revised on 2017. Lymphocyte pct 24.7 % [facility] Comment: Interpretive Data Percent cell count reference ranges are not reported, since discordance with absolute values may lead to misinterpretation of CBC data. Current Interpretive Data was last revised on 2017. Monocyte pct 6.6 % [facility] Comment: Interpretive Data Percent cell count reference ranges are not reported, since discordance with absolute values may lead to misinterpretation of CBC data. Current Interpretive Data was last revised on 2017. Eosinophil pct 2.6 % [facility] Comment: Interpretive Data Percent cell count reference ranges are not reported, since discordance with absolute values may lead to misinterpretation of CBC data. Current Interpretive Data was last revised on 2017. Basophil pct 0.6 % [facility] Comment: Interpretive Data Percent cell count reference ranges are not reported, since discordance with absolute values may lead to misinterpretation of CBC data. Current Interpretive Data was last revised on 2017. Blood 12/29/2024 11:0 1 AM CDT 12/29/2024 9:09 PM CDT Frederic Tobar MD LAB BLOOD ORDERABLES Fin al Result Performing Organization Address [facility] de Phone Number [facility] [address] [place] [address] * Thyroid Function [place] (12/29/2024 11:01 AM CDT) Pathologist [facility] TSH 2.36 0.30 - 4.20 mcIUnit/mL Blood 12/29/2024 11:0 1 AM CDT 12/29/2024 9:09 PM CDT Frederic Tobar MD LAB BLOOD ORDERABLES Fin al Result Performing Organization Address [facility] de Phone Number [place] [address] [place] [address] * (ABNORMAL) CBC with auto differential (12/29/2024 11:01 AM CDT) Pathologist [facility] WBC 10.59(H) 3.80 - 9.90 K/cumm Hgb 12.8 11.9 - 15.5 g/dL [facility] Hct 41.4 35.6 - 45.5 % [facility] Plt 312 150 - 400 K/cumm [facility] MPV 10.7 9.1 - 12.3 fL [facility] RBC 4.42 3.90 - 5.20 M/cumm [facility] MCV 93.7 81.3 - 96.4 fL [facility] MCH 29.0 27.1 - 33.3 pg [facility] MCHC 30.9(L) 32.3 - 35.7 g/dL [facility] RDW CV 13.4 11.1 - 14.9 % [facility] RDW SD 46.1 35.7 - 48.1 fL [facility] NRBC abs 0.00 0.00 - 0.01 K/cumm [facility] Blood 12/29/2024 11:0 1 AM CDT 12/29/2024 9:09 PM CDT Frederic Tobar MD LAB BLOOD ORDERABLES Fin al Result Performing Organization Address [facility] Co de Phone Number [facility] [address] Department [place] [address] * (ABNORMAL) Hemoglobin A1c (12/29/2024 11:01 AM CDT) Hgb A1C 6.3(H) 4.0 - 5.6 % Estimated Average Glucose 134 mg/dL [facility] Comment: The ADA recommends reporting an estimated Average Glucose (eAG) with all Hemoglobin A1c results using the equation derived from a study of 507 normal and diabetic adults. Minority populations were underrepresented and children were not included. (Diabetes Care 31:3708-8004, 2008). The eAG is not equivalent to a fasting glucose. Blood 12/29/2024 11:0 1 AM CDT 12/29/2024 9:09 PM CDT Frederic Tobar MD LAB BLOOD ORDERABLES [facility] al Result Performing Organization Address City/State/ZIP [place] Phone Number [place] [address] Department [place] [address] * (ABNORMAL) Lipid panel (12/29/2024 11:01 AM CDT) Cholesterol 244(H) 30 - 199 mg/dL Comment: Interpretive Data Ages < or = 19 years Acceptable: <170 mg/dL Borderline high: 170-199 mg/dL High: >or= 200 mg/dL Ages > or = 20 years Desirable: <200 mg/dL Borderline high: 200-239 mg/dL High: >or= 240 mg/dL Literature References: 1. Expert Panel on Integrated Guidelines for Cardiovascular Health and Risk Reduction in Children and Adolescents. Pediatrics 2011;128:S213 2. NCEP Expert Panel. Circulation 2004;110:227 Current Interpretive Data was last revised on 2018. Triglycerides 118 <=149 mg/dL [facility] Comment: Interpretive Data Ages < or = 9 years Acceptable: <75 mg/dL Borderline high: 75-99 mg/dL High: >or= 100 mg/dL Ages 10 to 20 years Acceptable: <90 mg/dL Borderline high: 90-129 mg/dL High: >or= 130 mg/dL Ages > or = 20 years Desirable: <150 mg/dL Borderline high: 150-199 mg/dL High: 200-499 mg/dL Very high: >or= 499 mg/dL Literature References: 1. Expert Panel on Integrated Guidelines for Cardiovascular Health and Risk Reduction in Children and Adolescents. Pediatrics 2011;128:S213 2. NCEP Expert Panel. Circulation 2004;110:227 Current Interpretive Data was last revised on 2018. HDL 51 >=40 mg/dL [facility] Comment: Interpretive Data Ages < or = 19 years Acceptable: >45 mg/dL Borderline low: 40-45 mg/dL Low: <40 mg/dL Ages > or = 20 years Desirable: >or= 60 mg/dL Low: <40 mg/dL Literature References: 1. Expert Panel on Integrated Guidelines for Cardiovascular Health and Risk Reduction in Children and Adolescents. Pediatrics 2011;128:S213 2. NCEP Expert Panel. Circulation 2004;110:227 Current Interpretive Data was last revised on 2018. LDL, calculated 172(H) <=129 mg/dL [facility] Comment: Interpretive Data Ages < or = 19 years Acceptable: <110 mg/dL Borderline high: 110-129 mg/dL High: >or= 130 mg/dL Ages > or = 20 years Optimal: <100 mg/dL Near optimal: 100-129 mg/dL Borderline high: 130-159 mg/dL High: >160 mg/dL Calculated using the Lex LDL-C estimating equation. This equation was implemented on 2024. Prior to this date LDL-C was estimated using the Friedewald equation. Literature References: 1. Expert Panel on Integrated Guidelines for Cardiovascular Health and Risk Reduction in Children and Adolescents. Pediatrics 2011;128:S213 2. NCEP Expert Panel. Circulation 2004;110:227 3. Lex Nix al. HARISH Cardiol. 2020 January 19;5(5):540-548. doi: 10.1001/jamacardio.2020.0013 Current Interpretive Data was last revised on 2024. Non-HDL Cholesterol 193 mg/dL [facility] Comment: Interpretive Data Ages < or = 19 years Acceptable: <120 mg/dL Borderline high: 120-144 mg/dL High: >145 mg/dL Ages > or = 20 years When triglycerides are >200 mg/dL, Non-HDL cholesterol is a secondary target of therapy with treatment goals that are 30 mg/dL greater than the LDL cholesterol target. Literature References: 1. Expert Panel on Integrated Guidelines for Cardiovascular Health and Risk Reduction in Children and Adolescents. Pediatrics 2011;128:S213 2. NCEP Expert Panel. Circulation 2004;110:227 Current Interpretive Data was last revised on 2018. Chol/HDL ratio 5 [facility] Blood 12/29/2024 11:0 1 AM CDT 12/29/2024 9:09 PM CDT us Frederic Tobar MD LAB BLOOD ORDERABLES Fin al Result [facility] [address] Department [place] [address] * (ABNORMAL) Comprehensive metabolic panel (12/29/2024 11:01 AM CDT) Sodium 143 135 - 145 mmol/L Potassium, pl 4.2 3.3 - 4.9 mmol/L [facility] Chloride 104 97 - 110 mmol/L [facility] CO2 27 22 - 32 mmol/L [facility] Anion gap 12 2 - 15 mmol/L [facility] BUN 15 6 - 25 mg/dL [facility] Creatinine 1.26(H) 0.60 - 1.10 mg/dL [facility] Glucose 93 70 - 199 mg/dL [facility] Comment: Interpretive Data Fasting glucose >/= 126 mg/dl is diagnostic for diabetes. Fasting is defined as no caloric intake for at least 8 hours. Fasting glucose between 100 mg/dl to 125 mg/dl is diagnostic of prediabetes. In a patient with classic symptoms of hyperglycemia or hyperglycemic crisis, a random glucose >/= 200 mg/dl is diagnostic for diabetes. In the absence of unequivocal hyperglycemia, results should be confirmed by repeat testing. The classification and Diagnosis of Diabetes Diabetes Care 2021; 46: S19-S40. Current interpretive data was last revised 2022. Calcium 9.7 8.5 - 10.3 mg/dL [facility] Bilirubin, total 0.6 0.1 - 1.2 mg/dL [facility] Protein, pl 7.5 6.5 - 8.5 g/dL [facility] Albumin 4.4 3.5 - 5.0 g/dL [facility] Alk phos 59 40 - 130 Units/L [facility] ALT 9 7 - 45 Units/L [facility] AST 29 10 - 45 Units/L [facility] Blood 12/29/2024 11:0 1 AM CDT 12/29/2024 9:09 PM CDT Frederic Tobar MD LAB [place] [address] [address] [place] [address] from Last 3 Months Insurance [facility] Care Teams Magnetic Locater Relationship Specialty Start Date End Date Frederic Tobar MD [address] [facility] [address] [place] [address] PCP - General Family Medicine 12/29/24
--- OUTSIDE RECORDS SUMMARY | 2025-01-02 10:04 | XMS_ITS | Clinical Summary ---
Author Organization [facility] Address [address] [place] [address] Care Team Providers Care Land Classifier Name Role Phone Jignesh Floyd MD Primary Care Provider [phone] Source Comments [facility],non-owned Affiliates and Associated Physician Practices is amultiple site organization consisting of ambulatory clinics and hospital sitesin [place], [place], [place] and [place]. This disclosure is being madepursuant to the Care Everywhere program and may not contain all information available regarding this patient. Last updated 18.[facility] Allergies No known active allergies Medications * Be aware that medications may not be up to date on this document. Alwaysverify current medications with the patient. amLODIPine (Norvasc) 10 MG tablet Take 1 (one) tablet by mouth once daily 06/01/2022 Active lisinopril (Prinivil; Zestril) 30 MG tablet Take 1 (one) tablet by mouth once daily 06/20/2022 Active Cholecalciferol (vitamin D3) 1.25 MG (28165 UT) capsule Take 1 (one) capsule by mouth every 7 days 09/23/2022 Active prochlorperazin e (Compazine) 10 MG tabletIndicatio ns:Malignant neoplasm of upper-inner quadrant of right breast in female, estrogen receptor positive (HCC) Take 1 (one) tablet by mouth every 6 hours as needed for Nausea/Vomit ing 30 tablet 6 10/14/2022 Active ondansetron (Zofran) 8 MG tabletIndicatio ns:Malignant neoplasm of upper-inner quadrant of right breast in female, estrogen receptor positive (HCC) Take 1 (one) tablet by mouth every 8 hours as needed for Nausea/Vomit ing 20 tablet 6 10/14/2022 Active letrozole (Femara) 2.5 MG tabletIndicatio ns:Malignant neoplasm of upper-inner quadrant of right breast in female, estrogen receptor positive (HCC) Take 1 (one) tablet by mouth once daily 90 tablet 3 02/11/2024 5 Active Jardiance 10 MG tablet Take 1 (one) tablet by mouth once daily 06/14/2024 Active Active Problems Problem Noted Date Diagnosed Date Malignant neoplasm of upper- inner quadrant of right breast in female, estrogen receptor positive 07/18/2022 Cancer Staging:Clinical stage from 07/10/2022:Stage IB(cT2, cN0, cM0, G3, ER+, AK+, HER2+) - Signed by Alexa Azar MD on 07/18/2022 Pathologic stage from 09/05/2022:Stage IA(pT1b(m), pN0(sn), cM0, G3, ER+, AK+, HER2+) - Signed by Alexa Azar MD [...] more drinks on one occasion? Never 01/18/2024 Comments No Sex and Gender Information Value Date Recorded Sex Assigned at Female 08/08/2022 1:01 AM BACK ORDER CLERK Legal Sex Female 1:14 PM CDT Gender Identity Female 08/08/2022 1:01 AM BACK ORDER CLERK Sexual Orientation Straight 08/08/2022 1: 01 AM BACK ORDER CLERK Last Filed Vital Signs Vital Sign Reading Time Taken Comments Blood Pressure 110/69 07/06/2024 9:52 AM CDT Pulse 61 07/06/2024 9:52 AM CDT Temperature 36.6 C (97.8 F) 07/06/2024 9:52 AM CDT Respiratory Rate 20 07/06/2024 9:52 AM CDT Oxygen Saturation 99% 07/06/2024 9:52 AM CDT Inhaled Oxygen Concentration 21% 09/05/2022 6 :55 PM BACK ORDER CLERK Weight 93.8 kg (206 lb 12.8 oz) 07/06/2024 9:52 AM CDT Height 162.6 cm (5' 4 ) 06/20/2024 10:0 9 AM CDT Body Mass Index 35.5 06/20/2024 10:09 AM CDT Plan of Treatment Upcoming Encounters Date Type Department Care Team (Late st Contact Info) Description 01/04/2025 9:40 AM CDT Office Visit [facility] - Hematology/Oncology [address] [place] [address] Sammi Tee MD [address] [place] [address] 06/19/2025 10:30 AM CDT Office Visit [facility] - General Surgery [address] [place] [phone] Alexa Azar MD [address] [facility] [address] [place] [address] Health Maintenance Due Date Last Done Comments [...] 60-74 years 1-dose series) 2012 COVID-19 VACCINE ( season) 2024 10/28/2021, 03/09/2021 MAMMOGRAM 07/07/2024 07/07/2022 DEPRESSION SCREENING 09/21/2024 INFLUENZA VACCINE (Season Ended) 2025 SCREENING FOR DIABETES 07/06/2027 , 01/06/2024, 10/28/2023, [...] this topic Medical Devices Implanted Type Area Probation And Patrol Agent Device Identifier Shelf Expiration Date Model / Serial / Lot Mrkr Apl 3 Mrfbr Pd Radopq Interwoven Implanted:Qty: 1 on 07/10/2022 by Quyen Kessler MD at [facility] Right: Breast [employer] 01/20/2024 [id number] / / [id number] Mrkr Apl 3 Mrfbr Pd Radopq Interwoven Implanted:Qty: 1 on 07/10/2022 by Quyen Kessler MD at [facility] Right: Breast [employer] 02/20/2024 [id number] / / [id number] Mrkr Apl 3 Mrfbr Pd Radopq Interwoven Implanted:Qty: 1 on 07/21/2022 by Quyen Kessler MD at [facility] Left: Breast [employer] 02/20/2024 [id number] / / [id number] Natrelle 133s Tissue Inspector Wreath 500cc Implanted:Qty: 1 on 09/05/2022 by Larissa Wooten MD at [facility] Right: Breast 09/14/2026 133S-MX-13- T / [id number] / Natrelle 133s Tissue Inspector Wreath 500cc Implanted:Qty: 1 on 09/05/2022 by Alexa Azar MD at [facility] Left: Breast 11/04/2026 133S-MS-13- T / [id number] / Alloderm Select Tissue Matrix Large Contour Implanted:Qty: 1 on 09/05/2022 by Larissa Wooten MD at [facility] Right: Breast 07/21/2023 [id number] / / [id number] Alloderm Select Tissue Matrix Contour Large Implanted:Qty: 1 on 09/05/2022 by Larissa Wooten MD at [facility] Left: Breast 09/20/2023 [id number] / / [id number] Port Implinfn Powerport Clrvu Argd Smita Implanted:Qty: 1 on 10/21/2022 at [facility] [employer] 12/20/2023 [id number] / / [id number] Procedures Procedure Name Priority Date/Time Associated Diagnosis Comments COMPREHENSIVE METABOLIC PANEL STAT 07/06/2024 9:24 AM CDT Malignant neoplasm of upper-inner quadrant of right breast in female, estrogen receptor positive MM OUTSIDE MAMMOGRAM Routine 07/07/2022 3:57 PM CDT Abnormal mammogram from Last 3 Months or Most Recently Relevant to Health Maintenance Results * (ABNORMAL) COMPREHENSIVE METABOLIC PANEL (07/06/2024 9:24 AM CDT) Pathologist [facility] BUN 25 7 - 26 mg/dL 07/06/2024 10:21 AM CDT [facility] Creatinine 1.36(H) 0.56 - 0.96 mg/dL 07/06/2024 10:21 AM [facility] Sodium 144 136 - 145 mmol/L 07/06/2024 10:21 AM [facility] Potassium 4.4 3.5 - 4.5 mmol/L 07/06/2024 10:21 AM [facility] Chloride 110(H) 98 - 107 mmol/L 07/06/2024 10:21 AM [facility] CO2 25 22 - 29 mmol/L 07/06/2024 10:21 AM [facility] Glucose 105 70 - 115 mg/dL 07/06/2024 10:21 AM [facility] Calcium 10.2 8.4 - 10.2 mg/dL 07/06/2024 10:21 AM [facility] Protein Total 7.3 6.0 - 8.3 g/dL 07/06/2024 10:21 AM [facility] Albumin 4.1 3.4 - 5.0 g/dL 07/06/2024 10:21 AM [facility] Bilirubin Total 0.4 0.2 - 1.2 mg/dL 07/06/2024 10:21 AM [facility] Alkaline Phosphatase 57 40 - 150 U/L 07/06/2024 10:21 AM [facility] ALT 15 5 - 55 U/L 07/06/2024 10:21 AM [facility] AST 16 5 - 34 U/L 07/06/2024 10:21 AM [facility] Anion Gap 9 6 - 16 07/06/2024 10:21 AM [facility] BUN/Creatinine Ratio 18 7 - 23 07/06/2024 10:21 AM [facility] Osmolality Calculated 303(H) 275 - 295 mOsm/kg 07/06/2024 10:21 AM [facility] Albumin/Globulin Ratio 1.3 1.1 - 2.3 07/06/2024 10:21 AM [facility] eGFR by CKD-EPI 42(L) >=90 mL/min/1.7 3 m2 07/06/2024 10:21 AM CDT [facility] Blood BLOOD SPECIMEN / Unknown Lab Venipuncture / Unknown 07/06/2024 9:24 AM CDT 07/06/2024 9:26 AM CDT Corinne Jean IRONWORKER APPRENTICE-INSULATION [facility] - CHEMISTRY ANTOINETTE BERGER Final Result [address] [address], [facility] [phone] * (ABNORMAL) MM OUTSIDE MAMMO FILM READ [...] with scheduling of this in the [facility] [place]. Patient will receive her results from and [...] images may or may not represent the [place] source data set and thus may contain [...] this second opinion. FACILITY WHERE STUDY PERFORMED: [facility] in [place], [place]. COMPARISON: None. FINDINGS: Screening mammogram dated [...] of this secondopinion. FACILITY WHERE STUDY PERFORMED: [facility] in [place], [place]. COMPARISON: None. FINDINGS: Screening mammogram dated [...] with scheduling of this in the [facility] [place]. Patient will receive her results from and follow up with Dr. Azar. Right breast: BI-RADS Category 4: Suspicious (subsegmental category 4C: High suspicion for malignancy). Left breast: BI-RADS Category 0: Incomplete: Need additional imaging evaluation OVERALL ASSESSMENT: BI-RADS CATEGORY 4: SUSPICIOUS. (SUBSET [id number]: HIGH SUSPICION FOR MALIGNANCY). Note: The findings, conclusions and recommendations within this reportdo not replace the initial findings, conclusions and recommendations madeat the facility where the study was performed, based upon the imaging and clinical condition at that time, and comparison with the prior reportand clinical history is necessary. The provided images may or may not represent the [place] source data setand thus may contain changes, which may lower the sensitivity in the second opinion interpretation. > Interpreting Provider: Quyen Kessler MD on 07/08/2022 8:03 PM us Alexa Azar MD IMAGING Final Resul t from Last 3 Months or Most Recently Relevant to Health Maintenance Insurance [facility] MEDICARE [place] MEDICARE Advance Directives * Full Code (Latest Code Status on File) Date Activated Date Inactivated Comments 09/05/2022 6:34 PM 09/06/2022 12:43 PM Care Teams Land Classifier Relationship Specialty Start Date End Date Jignesh Floyd MD [address] [place] [phone] PCP - General 05/30/22
--- OUTSIDE RECORDS SUMMARY | 2025-01-02 10:04 | XMS_ITS | Clinical Summary ---
Author Organization [facility] [address] [place] [address] Address [address] [place] [address] Care Team Providers Care Retail Director Name Role Phone Frederic Tobar MD Primary Care Provider + Allergies No known active allergies Medications letrozole [...] GFR 45-59 ml/min 12/29/2024 Severe obesity 12/29/2024 Encounters Date Type Department Care Team Description 12/29/2024 11:01 AM CDT - 12/29/2024 11:59 PM CDT Hospital Encounter [address] [address] Annual physical exam Discharge Disposition: Discharge to home or self care 12/29/2024 11:00 AM CDT Lab [facility] Outpatient Lab at [address] [place] [address] Routine general medical examination at a health care facility (Primary Dx) 12/29/2024 10:30 AM CDT Office Visit [facility] Primary Care at [address] [place] [address] Frederic Tobar MD Encounter for screening mammogram for malignant neoplasm of breast (Primary Dx); CKD stage 3a, GFR 45-59 ml/min (HCC); Primary hypertension; Nonrheumatic aortic valve stenosis; Post-menopause; Annual physical exam; Severe obesity (HCC) from Last 3 Months Surgical History Surgery Date Site/Laterality Comments PORT PLACEMENT CHEST >5 YEARS 10/21/2022 N/A Social History Tobacco Use Types Packs/Day Years Used Date Smoking Tobacco: Never Smokeless Tobacco: Never Tobacco Cessation:Counseling Given: Not Answered PHQ-2 Answer Date Recorded PHQ-2 Total Score (If total score is 3 or more points, staff should administer the PHQ-9) 0 12/29/2024 Comments Unknown Sex and Gender Information Value Date Recorded Sex Assigned at Not on file Legal Sex Female 10:[address]ER Gender Identity Not on file Sexual Orientation Not on file Obstetrics History Last Filed Vital Signs Vital Sign Reading [...] 12/29/2024 10:28 AM CDT Plan of Treatment Health Maintenance Due Date Last Done Comments Breast Cancer Screening-Mammogram 1950 Colon Cancer Screening-Colonoscopy 1950 Hepatitis C Screening 1950 Osteoporosis Screening-Bone Density Scan 1950 Hepatitis B Screening 1970 Well Visit 65+ 2017 Covid-19 Vaccine (3 - season) 05/22/202403/2022, 03/09/2021 Zoster Vaccine (2 of 2) 01/18/2025 11/23/2024 Depression Screening 12/29/2025 12/29/2024 Fall Risk Assessment 12/29/2025 12/29/2024 DTaP/Tdap/Td Vaccine (2 - Td or Tdap) 04/06/2031 Influenza Vaccine Completed 06/02/2024, 09/28/2023 Pneumococcal vaccine 65+ Completed 024, 11/18/2021, 04/09/2019 Procedures Procedure Name Priority Date/Time Associated Diagnosis [...] MD LAB BLOOD ORDERABLES Fin al Result [facility] [address] Department [place] [address] * (ABNORMAL) Differential, auto (12/29/2024 11:01 AM CDT) Neutrophil abs 6.88(H) 1.50 - 6.50 K/cumm Imm gran abs 0.05 0.00 - 0.10 K/cumm [facility] Lymphocyte abs 2.62 0.80 - 3.30 K/cumm [facility] Monocyte abs 0.70 0.20 - 0.80 K/cumm [facility] Eosinophil abs 0.28 0.00 - 0.50 K/cumm [facility] Basophil abs 0.06 0.00 - 0.10 K/cumm [facility] Neutrophil pct 65.0 % [facility] Comment: Interpretive Data Percent cell count reference ranges are not reported, since discordance with absolute values may lead to misinterpretation of CBC data. Current Interpretive Data was last revised on 2017. Imm gran pct 0.5 % [facility] Comment: Interpretive Data Percent cell count reference ranges are not reported, since discordance with absolute values may lead to misinterpretation of CBC data. Current Interpretive Data was last revised on 2017. Lymphocyte pct 24.7 % [facility] Comment: Interpretive Data Percent cell count reference ranges are not reported, since discordance with absolute values may lead to misinterpretation of CBC data. Current Interpretive Data was last revised on 2017. Monocyte pct 6.6 % [facility] Comment: Interpretive Data Percent cell count reference ranges are not reported, since discordance with absolute values may lead to misinterpretation of CBC data. Current Interpretive Data was last revised on 2017. Eosinophil pct 2.6 % [facility] Comment: Interpretive Data Percent cell count reference ranges are not reported, since discordance with absolute values may lead to misinterpretation of CBC data. Current Interpretive Data was last revised on 2017. Basophil pct 0.6 % [facility] Comment: Interpretive Data Percent cell count reference ranges are not reported, since discordance with absolute values may lead to misinterpretation of CBC data. Current Interpretive Data was last revised on 2017. Blood 12/29/2024 11:0 1 AM CDT 12/29/2024 9:09 PM CDT Frederic Tobar MD LAB BLOOD ORDERABLES Fin al Result Performing Organization Address [facility] Co de Phone Number [facility] [address] [facility] [place], [place] [id number] * Thyroid Function Scott (12/29/2024 11:01 AM CDT) Pathologist [facility] TSH 2.36 0.30 - 4.20 mcIUnit/mL Blood 12/29/2024 11:0 1 AM CDT 12/29/2024 9:09 PM CDT Frederic Tobar MD LAB BLOOD ORDERABLES Fin al Result Performing Organization Address [facility] Co de Phone Number [facility] [address] [place] [address] * (ABNORMAL) CBC with auto differential (12/29/2024 11:01 AM CDT) WBC 10.59(H) 3.80 - 9.90 K/cumm Hgb 12.8 11.9 - 15.5 g/dL [facility] Hct 41.4 35.6 - 45.5 % [facility] Plt 312 150 - 400 K/cumm [facility] MPV 10.7 9.1 - 12.3 fL [facility] RBC 4.42 3.90 - 5.20 M/cumm [facility] MCV 93.7 81.3 - 96.4 fL [facility] MCH 29.0 27.1 - 33.3 pg [facility] MCHC 30.9(L) 32.3 - 35.7 g/dL [facility] RDW CV 13.4 11.1 - 14.9 % [facility] RDW SD 46.1 35.7 - 48.1 fL [facility] NRBC abs 0.00 0.00 - 0.01 K/cumm [facility] Blood 12/29/2024 11:0 1 AM CDT 12/29/2024 9:09 PM CDT Frederic Tobar MD LAB BLOOD ORDERABLES Fin al Result Performing Organization Address [facility] de Phone Number [facility] [address] [place] [address] * (ABNORMAL) Hemoglobin A1c (12/29/2024 11:01 AM CDT) Hgb A1C 6.3(H) 4.0 - 5.6 % Estimated Average Glucose 134 mg/dL [facility] Comment: The ADA recommends reporting an estimated Average Glucose (eAG) with all Hemoglobin A1c results using the equation derived from a study of 507 normal and diabetic adults. Minority populations were underrepresented and children were not included. (Diabetes Care 31:9652-4522, 2008). The eAG is not equivalent to a fasting glucose. Blood 12/29/2024 11:0 1 AM CDT 12/29/2024 9:09 PM CDT Frederic Tobar MD LAB BLOOD ORDERABLES Fin al Result Performing Organization Address [facility] Co de Phone Number [facility] [address] [place], [place] [phone] * (ABNORMAL) Lipid panel (12/29/2024 11:01 AM [...] NCEP Expert Panel. Circulation 2004;110:227 3. Lex Stephens et al. HARISH Cardiol. 2020 January 19;5(5):540-548. doi: 10.1001/jamacardio.2020.0013 Current Interpretive Data was last revised on 2024. Non-HDL Cholesterol 193 mg/dL [facility] Comment: Interpretive Data Ages < or = [...] MD LAB BLOOD ORDERABLES Fin al Result [facility] [address] Department [place] [address] * (ABNORMAL) Comprehensive metabolic panel (12/29/2024 [...] classification and Diagnosis of Diabetes Diabetes Care 202; 46: S19-S40. Current interpretive data was last [...] MD LAB BLOOD ORDERABLES Fin al Result [facility] [address] Department [place] [address] from Last 3 Months Insurance [employer] Care Teams Retail Director Relationship Specialty Start Date End Date Frederic Tobar MD [address] [facility] [address] [place] [address] PCP - General Family Medicine 12/29/24
[2025-01-02 20:25] LABS: Anion Gap 8 mmol/L (4-12); Blood Urea Nitrogen 27 mg/dL (7-17); Calcium 9.3 mg/dL (8.4-10.2); Carbon Dioxide 30 mmol/L (22-30); Chloride 104 mmol/L (98-107); Estimated Glomerular Filt Rate 40; Glucose 89 mg/dL (65-110); Sodium 142 mmol/L (137-145)
== END 2025-01-02 09:20 | disposition home or self-care (01) ==
PROVIDERS: PCP Family Medicine; Visit Provider Internal Medicine Nephrology
DX: N18.31 Chronic kidney disease, stage 3a (principal)
CPT/HCPCS: 36415; 80048

== ENCOUNTER 2025-05-15 09:59 | Outpatient (CLI) | payer OTHER, SELFPAY ==
--- OUTSIDE RECORDS SUMMARY | 2025-05-15 10:53 | XMS_ITS ---
Author Organization [facility] Address [address] [place] [address] Care Team Providers Care Molding Engineer Name Role Phone Frederic Tobar MD Primary Care Provider + Annie Smith MD Unavailable [phone] Active Problems Problem Noted Date Diagnosed Date Primary hypertension 01/03/2025 Nonrheumatic aortic valve stenosis 01/03/2025 CKD stage 3a, GFR 45-59 ml/min 12/29/2024 Malignant neoplasm of upper- inner quadrant of right breast in female, estrogen receptor positive 07/18/2022 Cancer Staging:Clinical stage from 07/10/2022:Stage IB(cT2, cN0, cM0, G3, ER+, MT+, HER2+) - Signed by Alexa Azar MD on 07/18/2022 Pathologic stage from 09/05/2022:Stage IA(pT1b(m), pN0(sn), cM0, G3, ER+, MT+, HER2+) - Signed by Alexa Azar MD [...] breast in female, estrogen receptor positive (HCC)* [facility] [address] [place] [address] Oncology Treatment Summary Breast Treatment Summary for [...] Stage IB (cT2, cN0, cM0, G3, ER+, MT+, HER2+) - Signed by Alexa Azar MD on 07/18/2022 - Pathologic stage from 09/05/2022: Stage IA (pT1b(m), pN0(sn), cM0, G3, ER+, MT+, HER2+) - Signed by Alexa Azar MD on 10/01/2022 Surgery Information Description: Bilateral mastectomies, right SLNB Date: 09/05/22 Surgeon/Facility Name: Dr. Azar [facility] Adjuvant Treatment Recommendations: Medical oncology Initial Imaging Mammogram: Bilateral screening mammogram 02/10/2022 ([place]) -- read by [facility] radiology -- large segmental area of fine pleomorphic calcifications in the upper inner right breast spanning 9cm; small focal asymmetry in the left breast. BIRADS-0 Right diagnostic mammogram 05/20/2022 ([place]) -- fine pleomorphic calcifications in a linear distribution in the slightly outer right breast at the 3:00 location spanning 9cm. BIRADS-4 Left diagnostic mammogram and ultrasound (U) 07/17/2022 -- tiny focal asymmetry in the [...] up with Location How often Radiation Oncology [facility] Clinical visit every 4-6 months for 5 yrs, then every 12 months Medical Oncology [facility] Surgery [facility] Mammography [facility] Bilateral Diagnostic Mammogram every 12 months Reasons to call: New lesions or mass Chest pain New feelings of sadness or being overwhelmed Unintended weight loss Cough that does not go away Any side effects or questions of care Your follow up schedule is listed below Future Appointments Date Time Provider Department Center 10/08/2023 11:30 AM Alexa Azar MD [facility] 10/28/2023 8:50 AM [facility] 01/06/2024 8:40 AM Eva Banda MD [facility] Contact Information Radiation Oncologist Dr. Neil Fowler Medical Oncologist Dr. Wade [phone] Alexa Azar Social Work Physician Coder Deirdre Cannon Breast Nurse Navigator Sherrie Ndiaye RN [phone] [facility] Hospital Scheduling Primary Care Provider Jignesh Floyd MD [phone] Recommended cancer screenings Colonoscopy: every 10 years [...] walk a few extra steps. Important Resources [facility] [employer] [place] [employer] cancer.org Association of Cancer Online Resources acor.org Caring Bridge caringbridge.org CancerCare cancercare.org LiveStrong Foundation livestrong.org National Cancer [place] cancer.gov Cancer Survivors Network csn.cancer.org National Coalition for Cancer Survivorship canceradvocacy.org [place] Society of Clinical Oncologists cancer.net Cancer Support Community of [facility] www.cancersupportstl.org Radiation Therapy Questions/Answers www.rtanswers.org
--- OUTSIDE RECORDS SUMMARY | 2025-05-15 10:53 | XMS_ITS | Clinical Summary ---
Author Organization [facility] [address] [place] [address] Address [address] [place] [address] Care Team Providers Care Truck Chauffeur Name Role Phone Frederic Tobar MD Primary Care Provider + Allergies No known active allergies Medications letrozole (FEMARA) 2.5 mg tablet Take 1 tablet (2.5 mg total) by mouth daily Active Jardiance 10 mg tablet Take 1 tablet (10 mg total) by mouth daily Active amLODIPine (NORVASC) 10 mg tabletIndicatio ns:hypertension Take 0.5 tablets (5 mg total) by mouth daily 15 tablet 3 04/06/2025 5 Active cholecalciferol (VITAMIN D-3) 50,000 unit capsule Take 1 capsule (50,000 Units total) by mouth once a week 4 capsule 3 04/06/2025 5 Active lisinopriL (PRINIVIL,ZESTR IL) 30 mg tablet Take 1 tablet (30 mg total) by mouth daily 30 tablet 3 04/06/2025 5 Active Active Problems Problem Noted Date Diagnosed Date Breast cancer 01/03/2025 Primary hypertension 01/03/2025 Nonrheumatic aortic valve stenosis 01/03/2025 Encounter for screening mamm ogram for malignant neoplasm of breast 01/03/2025 Post-menopause 01/03/2025 CKD stage 3a, GFR 45-59 ml/min 12/29/2024 Severe obesity 12/29/2024 Encounters Date Type Department Care Team Description 04/18/2025 Results Follow-Up [facility] Primary Care at [address] [place] [address] Frederic Tobar MD Stool DNA - Cologuard 02/22/2025 Telephone [facility] Primary Care at [address] [place] [address] Belen Gar Chart Review ([facility] ) from Last 3 Months Surgical History Surgery [...] on file 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 Gender Identity Not on file Sexual Orientation [...] 10:28 AM CDT Height 162.6 cm (5' 4) 12/29/2024 10:28 AM CDT Body Mass Index 35.7 12/29/2024 10:28 AM CDT Plan of Treatment Health Maintenance Due Date Last Done Comments Breast Cancer Screening-Mammogram 1950 Colon Cancer Screening-Colonoscopy 1950 Hepatitis C Screening 1950 Osteoporosis Screening-Bone Density Scan 1952 Hepatitis B Screening 1970 Well Visit 65+ 2017 Covid-19 Vaccine ( season) 05/22/202403/2022, 03/09/2021 Zoster Vaccine (2 of 2) 01/18/2025 11/23/2024 Influenza Vaccine (#1) 2025 06/02/2024, 2023 Depression Screening 12/29/2025 12/29/2024 Fall Risk Assessment 12/29/2025 12/29/2024 DTaP/Tdap/Td Vaccine (2 - Td or Tdap) 04/06/2031 Pneumococcal vaccine 65+ Completed 024, 11/18/2021, 04/09/2019 Procedures Procedure Name Priority Date/Time Associated Diagnosis Comments STOOL DNA COLOGUARD Routine 04/13/2025 1:00 PM CDT Colon cancer screening from Last 3 Months Results * Stool DNA - Cologuard (04/13/2025 1:00 PM CDT) Stool DNA - Cologuard Negative Negative [facility] (CLIA #:[id number]) Comment: The Cologuard (TM) test was performed on this specimen. NEGATIVE TEST RESULT. A negative Cologuard result indicates a low likelihood that a colorectal cancer (CRC) or advanced adenoma (adenomatous polyps with more advanced pre-malignant features) is present. The chance that a person with a negative Cologuard test has a colorectal cancer is less than 1 in 1500 (negative predictive value >99.9%) or has an advanced adenoma is less than 5.3% (negative predictive value 94.7%). These data are based on a prospective cross-sectional study of 10,000 individuals at average risk for colorectal cancer who were screened with both Cologuard and colonoscopy. (Adelita Knapp al, N Engl J Med 2014;370(14):1286- 1297) The normal value (reference range) for this assay is negative. COLOGUARD RE-SCREENING RECOMMENDATION: Periodic colorectal cancer screening is an important part of preventive healthcare for asymptomatic individuals at average risk for colorectal cancer. Following a negative Cologuard result, the [place] Cancer Society and U.S. Multi-Society Task Force screening guidelines recommend a Cologuard re-screening interval of 3 years. References: [place] Cancer [employer] Guideline for Colorectal Cancer Screening: https://www.cancer.org/cancer/bmlae-jupwvj-nsnfxp/hdouicpkz-ibbiwsqwy-rkkzvzq/ac s-rec ommendations.html.; Nabor DK, Riri CR, Heather HardinK, Colorectal Cancer Screening: Recommendations for Physicians and Patients from the U.S. Multi-Society Task Force on Colorectal Cancer Screening , Am J Gastroenterology 2017; 112:8546-4049. TEST DESCRIPTION: Composite algorithmic analysis of stool DNA-biomarkers with hemoglobin immunoassay. Quantitative values of individual biomarkers are not reportable and are not associated with individual biomarker result reference ranges. Cologuard is intended for colorectal cancer screening of adults of either sex, 45 years or older, who are at average-risk for colorectal cancer (CRC). Cologuard has been approved for use by the U.S. FDA. The performance of Cologuard was established in a cross sectional study of average-risk adults aged 50-84. Cologuard performance in patients ages 45 to 49 years was estimated by sub-group analysis of near-age groups. Colonoscopies performed for a positive result may find as the most clinically significant lesion: colorectal cancer [4.0%], advanced adenoma (including sessile serrated polyps greater than or equal to 1cm diameter) [20%] or non- advanced adenoma [31%]; or no colorectal neoplasia [45%]. These estimates are derived from a prospective cross-sectional screening study of 10,000 individuals at average risk for colorectal cancer who were screened with both Cologuard and colonoscopy. (Adelita Knapp al, N Engl J Med 2014;370(14):9686-3155.) Cologuard may produce a false negative or false positive result (no colorectal cancer or precancerous polyp present at colonoscopy follow up). A negative Cologuard test result does not guarantee the absence of CRC or advanced adenoma (pre-cancer). The current Cologuard screening interval is every 3 years. ([place] Cancer Society and U.S. Multi-Society Task Force). Cologuard performance data in a 10,000 patient pivotal study using colonoscopy as the reference method can be accessed at the following location: www.MascotaNube.HumanCloud/results. Additional description of the Cologuard test process, warnings and precautions can be found at www.Repka.comrd.com. Stool 04/13/2025 1:00 PM CDT 04/14/2025 9:02 AM CDT Frederic Tobar MD LAB BODY FLUIDS AND STOO LS ORDERABLES Final Result [facility] (CLIA #:[id number]) [address] [place] [address] from Last 3 Months Insurance [employer] Care Teams Truck Chauffeur Relationship Specialty Start Date End Date Frederic Tobar MD [address] [facility] [address] [place] [address] PCP - General Family Medicine 12/29/24
--- OUTSIDE RECORDS SUMMARY | 2025-05-15 10:53 | XMS_ITS | Clinical Summary ---
Author Organization [facility] Address [address] [place] [address] Care Team Providers Care General Expeditor Name Role Phone Frederic Tobar MD Primary Care Provider + Annie Smith MD Unavailable [phone] Source Comments [facility],non-owned Affiliates and Associated Physician Practices is amultiple site organization consisting of ambulatory clinics and hospital sitesin [place], [place], [place] and [place]. This disclosure is being madepursuant to the Care Everywhere program and may not contain all information available regarding this patient. Last updated 18.[facility] Allergies No known active allergies Medications * Be aware that medications may not be up to date on this document. Alwaysverify current medications with the patient. amLODIPine (Norvasc) 10 MG tablet Take 1 (one) tablet by mouth once daily 2 Active lisinopril (Prinivil; Zestril) 30 MG tablet Take 1 (one) tablet by mouth once daily 2 Active Cholecalciferol (vitamin D3) 1.25 MG (40100 UT) capsule Take 1 (one) capsule by mouth every 7 days 3 Active prochlorperazin e (Compazine) 10 MG tabletIndicatio ns:Malignant neoplasm of upper-inner quadrant of right breast in female, estrogen receptor positive (HCC) Take 1 (one) tablet by mouth every 6 hours as needed for Nausea/Vomiting 30 tablet 6 3 Active Additional Information Patient not taking.Reported on 01/04/2025 ondansetron (Zofran) 8 MG tabletIndicatio ns:Malignant neoplasm of upper-inner quadrant of right breast in female, estrogen receptor positive (HCC) Take 1 (one) tablet by mouth every 8 hours as needed for Nausea/Vomiting 20 tablet 6 3 Active Additional Information Patient not taking.Reported on 01/04/2025 Jardiance 10 MG tablet Take 1 (one) tablet by mouth once daily 4 Active letrozole (Femara) 2.5 MG tabletIndicatio ns:Malignant neoplasm of upper-inner quadrant of right breast in female, estrogen receptor positive (HCC) Take 1 (one) tablet by mouth once daily 90 tablet 3 5 01/05/20 26 Active Active Problems Problem Noted Date Diagnosed Date Primary hypertension 01/03/2025 Nonrheumatic aortic valve stenosis 01/03/2025 CKD stage 3a, GFR 45-59 ml/min 12/29/2024 Malignant neoplasm of upper- inner quadrant of right breast in female, estrogen receptor positive 07/18/2022 Cancer Staging:Clinical stage from 07/10/2022:Stage IB(cT2, cN0, cM0, G3, ER+, MN+, HER2+) - Signed by Alexa Azar MD on 07/18/2022 Pathologic stage from 09/05/2022:Stage IA(pT1b(m), pN0(sn), cM0, G3, ER+, MN+, HER2+) - Signed by Alexa Azar MD on 10/01/2022 Encounters Date Type Department Care Team Description 03/09/2025 Telephone [facility] - Centralized Scheduling [address] [place] [address] Alexa Azar MD Reschedule Appointment (03/09-Left message to reschedule Doe's 06/19 appt--reschedule to the next available. MyChart note entered on 03/08-Not read-DLM-MS/03/10-Left message--3rd attempt--mailed reschedule letter--Cancelled--DLM -MS) from Last 3 Months Family History Medical History Relation Name Comments [...] Sex Assigned at Female 08/08/2022 1:01 AM PRESSURE TESTER Legal Sex Female 1:14 PM CDT Gender Identity Female 08/08/2022 1:01 AM PRESSURE TESTER Sexual Orientation Straight 08/08/2022 1: 01 AM PRESSURE TESTER Last Filed Vital Signs Vital Sign Reading Time Taken Comments Blood Pressure 143/83 01/04/2025 9:36 AM CDT Pulse 60 01/04/2025 9:36 AM CDT Temperature 36.6 C (97.8 F) 01/04/2025 9:36 AM CDT Respiratory Rate 20 01/04/2025 9:36 AM CDT Oxygen Saturation 96% 01/04/2025 9:36 AM CDT Inhaled Oxygen Concentration 21% 09/05/2022 6 :55 PM PRESSURE TESTER Weight 94.7 kg (208 lb 12.8 oz) 01/04/2025 9:36 AM CDT Height 162.6 cm (5' 4) 06/20/2024 10:0 9 AM CDT Body Mass Index 35.84 06/20/2024 10:09 AM CDT Plan of Treatment Upcoming Encounters Date Type Department Care Team (Late st Contact Info) Description 07/05/2025 9:00 AM CDT Office Visit [facility] - Hematology/Oncology [address] [place] [address] Sammi Tee MD [address] [place] [address] Health Maintenance Due Date Last Done Comments [...] 07/07/2024 07/07/2022 DEPRESSION SCREENING 09/21/2024 INFLUENZA VACCINE (#1) 2025 SCREENING FOR DIABETES 12/30/2027 , 07/06/2024, 01/06/2024, Additional history exists HEPATITIS B VACCINE Aged [...] this topic Medical Devices Implanted Type Area Looseleaf Binder Coverer Device Identifier Shelf Expiration Date Model / Serial / Lot Mrkr Apl 3 Mrfbr Pd Radopq Interwoven Implanted:Qty: 1 on 07/10/2022 by Quyen Kessler MD at [facility] Right: Breast Bard Peripheral Vascular 01/20/2024 [id number] / / [id number] Mrkr Apl 3 Mrfbr Pd Radopq Interwoven Implanted:Qty: 1 on 07/10/2022 by Quyen Kessler MD at [facility] Right: Breast Bard Peripheral Vascular 02/20/2024 [id number] / / [id number] Mrkr Apl 3 Mrfbr Pd Radopq Interwoven Implanted:Qty: 1 on 07/21/2022 by Quyen Kessler MD at [facility] Left: Breast Bard Peripheral Vascular 02/20/2024 [id number] / / [id number] Natrelle 133s Tissue Venetian Blind Machine Operator 500cc Implanted:Qty: 1 on 09/05/2022 by Larissa Wooten MD at [facility] Right: Breast 09/14/2026 133S-MX-13- T / [id number] / Natrelle 133s Tissue Venetian Blind Machine Operator 500cc Implanted:Qty: 1 on 09/05/2022 by Alexa Azar MD at [facility] Left: Breast 11/04/2026 133S-MS-13- T / [id number] / Alloderm Select Tissue Matrix Large Contour Implanted:Qty: 1 on 09/05/2022 by Larissa Wooten MD at [facility] Right: Breast 07/21/2023 [id number] / / [id number] Alloderm Select Tissue Matrix Contour Large Implanted:Qty: 1 on 09/05/2022 by Larissa Wooten MD at [facility] Left: Breast 09/20/2023 [id number] / / [id number] 5 Port Implinfn Powerport Clrvu Argd Smita Implanted:Qty: 1 on 10/21/2022 at [facility] Peripheral Vascular 12/20/2023 [id number] / / [id number] Procedures Procedure Name Priority Date/Time Associated Diagnosis Comments COMPREHENSIVE METABOLIC PANEL STAT 07/06/2024 9:24 AM CDT Malignant neoplasm of upper-inner quadrant of right breast in female, estrogen receptor positive MM OUTSIDE MAMMOGRAM Routine 07/07/2022 3:57 PM CDT Abnormal mammogram from Last 3 Months or Most Recently Relevant to Health Maintenance Results * (ABNORMAL) COMPREHENSIVE METABOLIC PANEL (07/06/2024 9:24 AM T) BUN 25 7 - 26 mg/dL 07/06/2024 10:21 AM [facility] Creatinine 1.36(H) 0.56 - 0.96 mg/dL 07/06/2024 10:21 AM [facility] Sodium 144 136 - 145 mmol/L 07/06/2024 10:21 AM [facility] Potassium 4.4 3.5 - 4.5 mmol/L 07/06/2024 10:21 AM [facility] Chloride 110(H) 98 - 107 mmol/L 07/06/2024 10:21 AM [facility] CO2 25 22 - 29 mmol/L 07/06/2024 10:21 AM [facility] Glucose 105 70 - 115 mg/dL 07/06/2024 10:21 AM [facility] Calcium 10.2 8.4 - 10.2 mg/dL 07/06/2024 10:21 AM [facility] Protein Total 7.3 6.0 - 8.3 g/dL 07/06/2024 10:21 AM [facility] Albumin 4.1 3.4 - 5.0 g/dL 07/06/2024 10:21 AM [facility] Bilirubin Total 0.4 0.2 - 1.2 mg/dL 07/06/2024 10:21 AM [facility] Alkaline Phosphatase 57 40 - 150 U/L 07/06/2024 10:21 AM [facility] ALT 15 5 - 55 U/L 07/06/2024 10:21 AM [facility] AST 16 5 - 34 U/L 07/06/2024 10:21 AM [facility] Anion Gap 9 6 - 16 07/06/2024 10:21 AM CDT [facility] BUN/Creatinine Ratio 18 7 - 23 07/06/2024 10:21 AM CDT [facility] Osmolality Calculated 303(H) 275 - 295 mOsm/kg 07/06/2024 10:21 AM CDT [facility] Albumin/Globulin Ratio 1.3 1.1 - 2.3 07/06/2024 10:21 AM CDT [facility] eGFR by CKD-EPI 42(L) >=90 mL/min/1.7 3 m2 07/06/2024 10:21 AM CDT [facility] Blood BLOOD SPECIMEN / Unknown Lab Venipuncture / Unknown 07/06/2024 9:24 AM CDT 07/06/2024 9:26 AM CDT Coirnne Jean CARDIOGRAPH OPERATOR-PIE MAKER LAB - CHEMISTRY CYNTHIAE CELINE Final Result [address] [address], [facility] [phone] * (ABNORMAL) MM OUTSIDE MAMMO FILM READ [...] assisted with scheduling of this in the [facility]. Patient will receive her results from and [...] images may or may not represent the yavapai-apache source data set and thus may contain [...] this second opinion. FACILITY WHERE STUDY PERFORMED: [facility] in [place], [place]. COMPARISON: None. FINDINGS: Screening mammogram dated [...] of this secondopinion. FACILITY WHERE STUDY PERFORMED: [facility] in [place], [place]. COMPARISON: None. FINDINGS: Screening mammogram dated [...] assisted with scheduling of this in the [facility]. Patient will receive her results from and follow up with Dr. Azar. Right breast: BI-RADS Category 4: Suspicious (subsegmental category 4C: High suspicion for malignancy). Left breast: BI-RADS Category 0: Incomplete: Need additional imaging evaluation OVERALL ASSESSMENT: BI-RADS CATEGORY 4: SUSPICIOUS. (SUBSET [id number]: HIGH SUSPICION FOR MALIGNANCY). Note: The findings, conclusions and recommendations within this reportdo not replace the initial findings, conclusions and recommendations madeat the facility where the study was performed, based upon the imaging and clinical condition at that time, and comparison with the prior reportand clinical history is necessary. The provided images may or may not represent the yavapai-apache source data setand thus may contain changes, which may lower the sensitivity in the second opinion interpretation. > Interpreting Provider: Quyen Kessler MD on 07/08/2022 8:03 PM Alexa Azar MD IMAGING Final Resul t from Last 3 Months or Most Recently Relevant to Health Maintenance Insurance [employer] E[employer] Advance Directives * Full Code (Latest Code Status on File) Date Activated Date Inactivated Comments 09/05/2022 6:34 PM 09/06/2022 12:43 PM Care Teams General Expeditor Relationship Specialty Start Date End Date Frederic Tobar MD [address] [place] [address] [place] [address] PCP - General Family Medicine 01/04/25 Annie Smith MD [address] [address] Hematology and Oncology 01/08/25
--- OUTSIDE RECORDS SUMMARY | 2025-05-15 10:53 | XMS_ITS | Encounter Summary ---
Author Organization [facility] Healthcare Address [address] [place] [address] Care Team Providers Care Rug Underlay Machine Operator Name Role Phone Frederic Tobar MD Primary Care Provider + Encounter Details Date Type Department Care Team (Late st Contact Info) Description 04/18/2025 Results Follow-Up [facility] Medical Group Primary Care at [address] [place] [phone] Frederic Tobar MD [address] [place] [address] Stool DNA - Cologuard Social History Tobacco Use Types Packs/Day Years Used Date Smoking Tobacco: Never Smokeless Tobacco: Never PHQ-2 Answer Date Recorded PHQ-2 Total Score (If total score is 3 or more points, staff should administer the PHQ-9) 0 12/29/2024 Comments Unknown Sex and Gender Information Value Date Recorded Sex Assigned at Not on file 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
[2025-05-15 19:14] LABS: Hematocrit 40.4 % (37.0-47.0); Hemoglobin 12.3 g/dL (12.0-15.0); Mean Corpuscular HGB Conc 30.4 g/dl (32-36); Mean Corpuscular Hemoglobin 29.0 pg (26-34); Mean Corpuscular Volume 95.3 fl (80-100); Platelet Count Result 253 k/mm3 (150-375); Red Blood Count 4.24 M/mm3 (4.2-5.4); White Blood Count 7.8 K/mm3 (4.5-10.0)
[2025-05-15 19:21] LABS: Albumin Level 4.1 g/dL (3.5-5.1); Anion Gap 6 mmol/L (4-12); Blood Urea Nitrogen 22 mg/dL (7-17); Calcium 9.4 mg/dL (8.4-10.2); Carbon Dioxide 29 mmol/L (22-30); Chloride 105 mmol/L (98-107); Estimated Glomerular Filt Rate 35; Glucose 94 mg/dL (65-110); Potassium 4.0 mmol/L (3.4-5.0); Sodium 140 mmol/L (137-145)
[2025-05-15 19:45] LABS: Total Protein Urine Random 10 mg/dL; Ur Ttl Prot Creatinine Ratio 0.22 mg/mg (0-0.20)
[2025-05-15 20:02] LABS: Parathyroid Intact 28.2 pg/mL (14.5-75.2)
== END 2025-05-15 10:00 | disposition home or self-care (01) ==
PROVIDERS: Visit Provider Internal Medicine Nephrology
DX: N18.31 Chronic kidney disease, stage 3a (principal)
CPT/HCPCS: 36415; 80069; 82570; 83970; 84156; 85027

== ENCOUNTER 2025-06-15 09:01 | Outpatient (CLI) | payer OTHER, SELFPAY ==
--- OUTSIDE RECORDS SUMMARY | 2025-06-15 09:26 | XMS_ITS | Clinical Summary ---
Author Organization [facility] [address] [place] [address] Address [address] [place] [address] Care Team Providers Care Orthopaedic Technologist Name Role Phone Frederic Tobar MD Primary [...] Department Care Team Description 04/18/2025 Results Follow-Up 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 Following a negative Cologuard result, the French Cancer Society and U.S. Multi-Society Task Force screening guidelines recommend a Cologuard re-screening interval of 3 years. References: French Cancer Society Guideline for Colorectal Cancer Screening: https://www.cancer.org/cancer/usiil-heyqio-pcvnzf/iahvuwjij-yjijzhozx-aeouqea/ac s-rec ommendations.html.; Nabor RENAE, Riri ASHLEY, Heather FRANCO, Colorectal Cancer Screening: Recommendations for Physicians and Patients from the U.S. Multi-Society Task Force on Colorectal Cancer Screening , Am J Gastroenterology 2017; 112:3099-4653. TEST DESCRIPTION: Composite algorithmic analysis of stool [...] screened with both Cologuard and colonoscopy. (Adelita Rogers et al, N Engl J Med 2014;370(14):7693-2441.) Cologuard may produce a false negative or false positive result (no colorectal cancer or precancerous polyp present at colonoscopy follow up). A negative Cologuard test result does not guarantee the absence of CRC or advanced adenoma (pre-cancer). The current Cologuard screening interval is every 3 years. (French Cancer Society and U.S. Multi-Society Task Force). Cologuard performance data in a 10,000 patient pivotal study using colonoscopy as the reference method can be accessed at the following location: www.[employer].Smarter Pockets/results. Additional description of the Cologuard test process, warnings and precautions can be found at www.[employer].com. Stool 04/13/2025 1:00 PM CDT 04/14/2025 9:02 AM CDT Frederic Tobar MD LAB BODY FLUIDS AND STOO LS ORDERABLES Final Result [employer] (CLIA #:[id number]) [address] [place] [address] from Last 3 Months Insurance [facility] Care Teams Orthopaedic Technologist Relationship Specialty Start Date End Date Frederic Tobar MD [address] [facility] [address] [place] [address] PCP - General Family Medicine 12/29/24
--- OUTSIDE RECORDS SUMMARY | 2025-06-15 09:26 | XMS_ITS | Encounter Summary ---
Author Organization [facility] Healthcare Address [address] [place] [address] Care Team Providers Care Afterschool Name Role Phone Frederic Tobar MD Primary Care Provider + Encounter Details Date Type Department Care Team (Late st Contact Info) Description 04/18/2025 Results Follow-Up [facility] Medical Group Primary Care at [address] [place] [phone] Frederic Tobar MD [address] [place] [address] Stool DNA - Cologuard Social History Tobacco Use Types Packs/Day Years Used Date Smoking Tobacco: Never Smokeless Tobacco: Never PHQ-2 Answer Date Recorded PHQ-2 Total Score (If total score is 3 or more points, staff should administer the PHQ-9) 0 12/29/2024 Comments Unknown Sex and Gender Information Value Date Recorded Sex Assigned at Not on file Legal Sex Female 10:01 AM RUG SETTER AXMINSTER Gender Identity Not on file Sexual Orientation Not on file documented as of this encounter Plan of Treatment Not on file documented as of this encounter Visit Diagnoses Not on filedocumented in this encounter Care Teams Afterschool Relationship Specialty Start Date End Date Frederic Tobar MD [address] [place] [address] PCP - General Family Medicine 12/29/24 documented as of this encounter
[2025-06-15 18:39] LABS: Anion Gap 6 mmol/L (4-12); Blood Urea Nitrogen 21 mg/dL (7-17); Calcium 9.1 mg/dL (8.4-10.2); Carbon Dioxide 30 mmol/L (22-30); Chloride 103 mmol/L (98-107); Estimated Glomerular Filt Rate 40; Glucose 81 mg/dL (65-110); Potassium 4.2 mmol/L (3.4-5.0); Sodium 139 mmol/L (137-145)
== END 2025-06-15 09:02 | disposition home or self-care (01) ==
LOC: ANHBWCLAB 09:02
PROVIDERS: Visit Provider Internal Medicine Nephrology
DX: N18.31 Chronic kidney disease, stage 3a (principal)
CPT/HCPCS: 36415; 80048